=== PATIENT | male | born 1970 | race Caucasian/White ===

== ENCOUNTER 2017-04-05 23:24 | Observation (INO) | payer OTHER ==
[~2017-04-05] VITALS: Ht 172.7 cm; Wt 86.8 kg
[~2017-04-05 23:24] MED LIST: AMOXICILLIN500 MG PO; ASPIRIN LOW DOS81 M2 PO; BACTRIM DS1 TAB PO; BYDUREON2 MG IJ; CIPRO500 MG PO; CIPROFLOXACIN500 M1 PO; CIPROFLOXACN250 MG PO; CIPROFLOXACN500 MG PO; CREON 20 OR; CREON1 CAP PO; CREON12000 UNT PO; CREON6000 UNIT PO; DARVOCET N-100100 - OR; DEMEROL OR; DEMEROL PO; DEMEROL50 MG PO; FLEXERIL5 MG PO; HUMALOG100 MG/ML SC; HUMALOG100 UNIT/M SC; HUMULI1 SC; HUMULIN 70/30; HUMULIN R1 M1 SC; LANTUS100 MG/ML SC; LORTAB 7.5 OR; LORTAB5 PO; LOVASTATIN10 MG PO; MELOXICAM7.5 MG PO; METOCLOPRAM10 MG OR; NOVOLIN R SC; NOVOLOG MIX100 U/ML SC; ONDANSETRON4 MG OR; PERCOCET 5/325M1 TAB OR; PHENERGAN25 MG/ML OR; PREVACID30 M1 PO; PREVACID30 M2 OR; PROMETHAZINE25 MG OR; PROMETHAZINE25 MG RE; PROTONIX40 MG PO; REGLAN10 MG OR; REGLAN10 MG PO; SULFAMETHOXAZOLE-TMP; TAM75CAP OR; TRAMADOL HCL50 MG PO; TRICOR145 MG PO; ULTRAM50 M1 PO; ZOFRAN ODT4 MG PO; ZOFRAN ODT8 MG OR; ZOFRAN ODT8 MG PO
[2017-04-05] MEDS ORDERED: LANTUS100 UNIT/M SC (23:42)
--- NOTE | 2017-04-05 23:48 | NUR ---
PATIENT TO TREATMENT AREA AND TO BATHROOM FOR URINE SAMPLE.
[2017-04-06] VITALS (7 sets, daily range): BP systolic 104–138; BP diastolic 65–85
--- NOTE | 2017-04-06 00:30 | NUR ---
PORT ACCESSED AND BLOOD DRAWN. URINE COLLECTED AND SENT TO LAB. WAITING ON RESULTS.
[2017-04-06 00:49] LABS: HEMATOCRIT 35.5 % (39.0-50.0); HEMOGLOBIN 12.3 g/dl (14.0-18.0); IMMATURE GRANULOCYTES 0.2 % (0.0-1.0); MEAN CELL VOLUME 81.6 fL CALC (80.0-100.0); MEAN CORPUSCULAR HGB 28.3 pG CALC (26.0-32.0); MEAN CORPUSCULAR HGB CONC 34.6 g/L CALC (32.0-36.0); NEUT# 3.49 thou/uL (1.82-7.42); RED BLOOD COUNT 4.35 mill/uL (4.70-6.10); RED CELL DISTRI WIDTH 11.9 % (11.5-15.5)
[2017-04-06 00:50] LABS: URINE BILIRUBIN - DIPSTICK NEGATIVE (NEGATIVE); URINE BLOOD DIPSTICK TRACE-INTACT (NEGATIVE); URINE COLOR YELLOW; URINE KETONE NEGATIVE (NEGATIVE); URINE LEUK ESTERASE NEGATIVE (NEGATIVE); URINE NITRITE - DIPSTICK NEGATIVE (Negative); URINE PH 5.5 (4.5-8.0); URINE PROTEIN - DIPSTICK NEGATIVE (NEG-TRACE); URINE SPECIFIC GRAVITY <=1.005; URINE UROBILINOGEN - DIPSTICK 0.2 E.U./dL (0.2)
[2017-04-06 00:53] LABS: URINE CLARITY CLEAR; URINE GLUCOSE - DIPSTICK >=1000 mg/dL (NEGATIVE)
[2017-04-06 01:08] LABS: ALBUMIN 4.1 g/dL (3.2-5.0); ALKALINE PHOSPHATASE 157 u/l (38-126); AMYLASE 32 u/l (30-110); ANION GAP 19 (6-22 (CALC)); BILIRUBIN, TOTAL 0.5 mg/dL (0.0-1.4); BUN 19 mg/dL (9-20); BUN/CREATININE RATIO 14 (12-20 (CALC)); CALCIUM 8.9 mg/dL (8.4-10.2); CARBON DIOXIDE 23 mmol/l (22-30); CHLORIDE 94 mmol/l (95-108); CREATININE 1.4 mg/dL (0.7-1.3); GFR 54 ML/MIN (>=60 (CALC)); GFR FOR AFR.AMER. > 60 ML/MIN (>=60 (CALC)); LIPASE 87 u/l (23-300); SGOT/AST 19 u/l (17-59); SGPT/ALT 28 u/l (21-72); SODIUM 131 mmol/l (137-146)
[2017-04-06 01:17] LABS: GLUCOSE 793 mg/dL (75-110)
[2017-04-06 01:20] LABS: MYOGLOBIN 34 ng/mL (0 - 121)
--- NOTE | 2017-04-06 01:39 | NUR ---
PT STATES PAIN DOWN TO 410. IV INSULIN GIVEN FOR BS 793
--- NOTE | 2017-04-06 02:27 | NUR ---
REPEAT ACCUCHECK 522. REPEAT LACTIC ACID DRAWN.
--- NOTE | 2017-04-06 02:46 | NUR ---
Admission Note Report Given to: LINDA QUINN Transported by: Wheelchair X Stretcher Transported with: X Nurse Transporter X Patent IV O2 X Compression Molding Machine Setter
--- NOTE | 2017-04-06 02:50 | NUR ---
[facility], ARRIVED VIA STRETCHER, MONKEY KEEPER, ON ROOM AIR, BOLUS OF NS INFUSION STARTED IN ER, INFUSING TO RT UPPER CHEST PORT, ACCESSED TODAY. PT IS ALERT AND ORIENTED X3, ABLE TO AMBULATE FROM STRETCHER TO SCALE THEN TO BED, STEADY GAIT NOTED, DENIES N/V, C/O SHARP ABD PAIN TO RLQ, RATES IT AT 7/10, NO ORDERS FOR PAIN, PREVIOUSLY MEDICATED IN ER WITH DEMEROL 25MG IV AT 0050, WILL NOTIFY DR. SWIFT OF ABD PAIN. TELE IS IN PLACE, SR ON TELE PER ER MONITORING, HR 90, BP 131/77, SPO2 97% ON ROOM AIR, RR 16 EVEN AND UNLABORED, TEMP 97.2; SOME FACIAL GRIMACE AND GUARDING NOTED UPON ARRIVAL, POEM WRITER IN PT ROOM FOR FINGERSTICK ACCU CHECK, STATES LIVES AT HOME WITH FATHER AND BROTHER, DENIES USING AMBULATORY DEVICES, EXPLAINED CALL HUBER SYSTEM AND PLAN OF CARE, VOICES UNDERSTANDING, ASSESSMENT COMPLETED AT THIS TIME, SEE INTERVENTIONS FOR DETAILS, BST, FRESH WATER, URINAL, EMESIS BAG, CALL HUBER AT REACH. WILL MONITOR CLOSELY.
--- NOTE | 2017-04-06 02:53 | NUR ---
UPDATED REPORT DONE AT BEDSIDE UPON DELIVERING PT TO FLOOR.
--- NOTE | 2017-04-06 03:50 | NUR ---
NOTIFIED DR. SWIFT OF FINGERSTICK ACCU 476 AND LAB RESULTS, LACTIC ACID 3.1, NEW ODERS RECEIVED, WAITING FOR PHARMACY TO PROFILE ORDERS.
--- NOTE | 2017-04-06 04:46 | NUR ---
NOTIFIED DR. SWIFT OF CARDINAL NOT PROFILING DILAUDID BECAUSE OF PT DOCUMENTED ALLERGY, NEW ORDERS FOR DEMEROL 25MG IV. WAITING FOR CARDINAL TO PROFILE IT. PT STATES PAIN IS GETTING WORSE, NO DISTRESS NOTED, RESP ARE UNLABORED.
--- NOTE | 2017-04-06 05:08 | NUR ---
MEDICATED PT WITH DEMEROL IV, FOR SHARP PAIN IN ABD LLQ, RATES IT AT 7/10, SOME FACIAL GRIMACE NOTED AND GUARDING, RESP ARE EVEN AND UNLABORED, DENIES N/V, EMESIS BAG WITHIN REACH, ENCOURAGED TO CALL IF NEEDED, WILL REASSESS PAIN.
--- NOTE | 2017-04-06 05:12 | NUR ---
PT APPEARS TO BE SLEEPING IN BED, AROUSES TO STIMULI, EXPRESSED CONCERN ABOUT RLE BEING OPEN TO AIR, ASKING TO WRAP RLE AND PUT SOME KIND OF OINTMENT, EXPLAINED THAT DR. DUARTE WILL REEVALUATE RLE AND WILL ORDER TX IF NEEDED. PT VOICES UNDERSTANDING, MINIMAL SEROUS DRAINAGE NOTED FORM RLE. PEDAL PULSE WITH DOPPLER TO RLE, NO S/S OF DISTRESS NOTED, VSS, AFEBRILE, WILL CONTINUE TO MONITOR CLOSELY.
[2017-04-06 06:56] LABS: ANION GAP 16 (6-22 (CALC)); BUN 18 mg/dL (9-20); BUN/CREATININE RATIO 14 (12-20 (CALC)); CALCIUM 8.8 mg/dL (8.4-10.2); CARBON DIOXIDE 26 mmol/l (22-30); CHLORIDE 102 mmol/l (95-108); CREATININE 1.3 mg/dL (0.7-1.3); GFR 59 ML/MIN (>=60 (CALC)); GFR FOR AFR.AMER. > 60 ML/MIN (>=60 (CALC)); GLUCOSE 392 mg/dL (75-110); POTASSIUM 4.3 mmol/l (3.5-5.1); SODIUM 140 mmol/l (137-146)
--- NOTE | 2017-04-06 07:10 | NUR ---
BEDSIDE REPORT RECEIVED FROM SAÚL QUINN NURSE. PT.IS IN BED W/LIGHTS OUT SLEEPING AT THIS TIME. NO S/S OF DISTRESS. CALL LIGHT IS AT SIDE
--- NOTE | 2017-04-06 07:57 | NUR ---
NOTIFIED DR. SWIFT OF PT LABS RESULTS, ORDERS TO GIVE 5 UNITS OF NOVOLIN R, IV NOW, WILL FAX ORDERS TO PHARMACY.
--- NOTE | 2017-04-06 07:58 | NUR ---
REPORT GIVEN TO LINDA COPELAND.
[2017-04-06 13:10] LABS: ALBUMIN 3.3 g/dL (3.2-5.0); ALKALINE PHOSPHATASE 78 u/l (38-126); ANION GAP 13 (6-22 (CALC)); BILIRUBIN, TOTAL 0.3 mg/dL (0.0-1.4); BUN 16 mg/dL (9-20); BUN/CREATININE RATIO 13 (12-20 (CALC)); CALCIUM 8.7 mg/dL (8.4-10.2); CARBON DIOXIDE 26 mmol/l (22-30); CHLORIDE 105 mmol/l (95-108); CREATININE 1.2 mg/dL (0.7-1.3); GFR > 60 ML/MIN (>=60 (CALC)); GFR FOR AFR.AMER. > 60 ML/MIN (>=60 (CALC)); GLUCOSE 296 mg/dL (75-110); POTASSIUM 4.2 mmol/l (3.5-5.1); SGOT/AST 15 u/l (17-59); SGPT/ALT 28 u/l (21-72); SODIUM 140 mmol/l (137-146); TOTAL PROTEIN 5.9 g/dL (6.3-8.2)
--- NOTE | 2017-04-06 14:45 | NUR ---
PT.MEDICATED FOR PAIN 11/05 REPORTED. DENIES ANY OTHER NEEDS AT THIS TIME. CALL LIGHT W/IN REACH, PT.WATCHING TV
--- NOTE | 2017-04-06 17:34 | NUR ---
PT.MEDICATED FOR BLOOD SUGAR OF 289. DENIES ANY OTHER NEEDS AT THIS TIME. CALL LIGHT W/IN REACH
--- NOTE | 2017-04-06 19:35 | NUR ---
PATIENT RESTING IN BED AT THIS TIME-AWAKE ALERT AND ORIENTEDC/O SEVERE LEFT SIDED ABD PAIN-MEDICATED WITH DEMEROL 25 MG IVP ORDERED. RIGHT UPPER CHEST PORT ACCESSED AND APPEARS HEALTHY WITH GOOD BLOOD RETURN. PATIENT DENIES ANY BM'S TODAY-INSTRUCTED ON NEED FOR STOOL SPEC WHEN PATIENT IS ABLE TO PROVIDE SPEC. SAFETY PRECAUTIONS REINFORCED. CALL LIGHT IN REACH.WILL CONT TO MONITOR.
--- NOTE | 2017-04-06 23:45 | NUR ---
PATIENT C/O LEFT ABD PAIN 8/10 ON PAIN SCALE. MEDICATED WITH DEMEROL 25MG IVP ORDERED. PATIENT WITH RIGHT UPPER CHEST PORT ACCESSED AND WITH GOOD BLOOD RETURN. FLUSHED PER PROTOCOL. VOIDING CLEAR YELLOW URINE IN URINAL. CALL LIGHT IN REACH. WILL CONT TO MONITOR.
[2017-04-07] VITALS (7 sets, daily range): BP systolic 106–123; BP diastolic 56–78
--- NOTE | 2017-04-07 03:51 | NUR ---
PATIENT C/O SEVERE LEFT SIDED ABD PAIN-MEDICATED WITH DEMEROL 25MG IVP FOR 8/10 PAIN SCALE. VOIDING QS CLEAR YELLOW URINE. CALL LIGHT IN REACH. WILL CONT TO MONITOR.
[2017-04-07 05:27] LABS: HEMATOCRIT 38.1 % (39.0-50.0); HEMOGLOBIN 12.9 g/dl (14.0-18.0); IMMATURE GRANULOCYTES 0.3 % (0.0-1.0); MEAN CELL VOLUME 83.2 fL CALC (80.0-100.0); MEAN CORPUSCULAR HGB 28.2 pG CALC (26.0-32.0); MEAN CORPUSCULAR HGB CONC 33.9 g/L CALC (32.0-36.0); NEUT# 3.37 thou/uL (1.82-7.42); RED BLOOD COUNT 4.58 mill/uL (4.70-6.10); RED CELL DISTRI WIDTH 12.1 % (11.5-15.5)
[2017-04-07 05:41] LABS: ALBUMIN 3.9 g/dL (3.2-5.0); ALKALINE PHOSPHATASE 81 u/l (38-126); ANION GAP 14 (6-22 (CALC)); BILIRUBIN, TOTAL 0.4 mg/dL (0.0-1.4); BUN 15 mg/dL (9-20); BUN/CREATININE RATIO 12 (12-20 (CALC)); CALCIUM 9.8 mg/dL (8.4-10.2); CARBON DIOXIDE 30 mmol/l (22-30); CHLORIDE 103 mmol/l (95-108); CREATININE 1.3 mg/dL (0.7-1.3); GFR 59 ML/MIN (>=60 (CALC)); GFR FOR AFR.AMER. > 60 ML/MIN (>=60 (CALC)); GLUCOSE 118 mg/dL (75-110); SGOT/AST 21 u/l (17-59); SGPT/ALT 28 u/l (21-72); SODIUM 143 mmol/l (137-146); TOTAL PROTEIN 6.5 g/dL (6.3-8.2)
--- NOTE | 2017-04-07 07:18 | NUR ---
PT.V/S ASSESSED, PT.REQUESTED PAIN MEDIATION, REPORTING 12/06. I EXPLAINED THAT I AM UNABLE TO PULL MEDICATION QUITE YET, BUT WILL BRING IT SOON IT BECOMES AVAILABLE.
--- NOTE | 2017-04-07 08:11 | NUR ---
PT.MEDICATED W/AM MEDICATIONS, ASSESSMENT COMPLETE, NO S/S OF DISTRESS AT THIS TIME. PT.HAS BEEN MEDICATED FOR PAIN REPORTED @ 12/06. PT.IS UPRIGHT IN BED WATCHING TV. CALL LIGHT W/IN REACH
--- NOTE | 2017-04-07 12:16 | NUR ---
PT.MEDICATED FOR PAIN 12/06. NO S/S OF DISTRESS AT THIS TIME
--- NOTE | 2017-04-07 16:45 | NUR ---
PT.PROPPED UP IN BED, REPORTED SITTING IN THE RECLINER FOR A LITTLE WHILE DURING HIS FAMILY VISITED. PT.IS WATCHING TV AT THIS TIME, CALLED TO REQUEST PAIN MEDICATION, REPORTS PAIN 8/10. MEDICATED ORDERS PROVIDE. DENIES ANY OTHER NEEDS AT THIS TIME, LUNG SOUNDS ARE CLEAR, NEURO'S INTACT. CALL LIGHT AT SIDE
--- NOTE | 2017-04-07 19:37 | NUR ---
PATIENT RESTING IN BED AT THIS TIME WATCHING TV. AWAKE ALERT AND ORIENTEDX3. RIGHT UPPER CHEST PORT INTACT AND APPEARS HEALTHY AT THIS TIME. NO COMPLAINTS AT THIS TIME. STATES NO BM TODAY-INSTRUCTED THAT WE STILL STOOL SPEC WHEN ABLE TO PROVIDE. STATES THAT HE IS PASSING FLATUS. CALL LIGHT IN REACH. WILL CONT TO MONITOR.
--- NOTE | 2017-04-07 20:45 | NUR ---
PATIENT C/O ABD PAIN-7/10 ON PAIN SCALE. MEDICATED WITH DEMEROL 25MG IVP ORDERED FOR PAIN. ACCU-CHECK 344-COVERED WITH NOVALOG 5UNIT SQ. CALL LIGHT IN REACH. WILL CONT TO MONITOR.
--- NOTE | 2017-04-08 00:56 | NUR ---
PATIENT MEDICATED FOR ABD PAIN 8/10 ON PAIN SCALE WITH DEMEROL 25 MG IVP ORDERED. CALL LIGHT IN REACH. WILL CONT TO MONITOR.
[2017-04-08 04:39] VITALS: BP 121/74
--- NOTE | 2017-04-08 04:48 | NUR ---
UNABLE TO DRAW FROM RIGHT CHEST FOR LAB DRAW-ABLE TO GET BLOOD RETURN BUT NOT ENOUGHT FOR LAB SPEC. PATIENT MEDICATED FOR C/O ABD PAIN WITH DEMEROL 25MG IVP ORDERED FOR PAIN. PORT FLUSHED PER PROTOCOL WITH NS AMD HEP ALFREDITO. CALL LIGHT IN REACH. WILL CONT TO MONITOR.
[2017-04-08 06:39] LABS: HEMATOCRIT 37.1 % (39.0-50.0); HEMOGLOBIN 12.7 g/dl (14.0-18.0); IMMATURE GRANULOCYTES 0.5 % (0.0-1.0); MEAN CELL VOLUME 83.7 fL CALC (80.0-100.0); MEAN CORPUSCULAR HGB 28.7 pG CALC (26.0-32.0); MEAN CORPUSCULAR HGB CONC 34.2 g/L CALC (32.0-36.0); NEUT# 3.41 thou/uL (1.82-7.42); RED BLOOD COUNT 4.43 mill/uL (4.70-6.10); RED CELL DISTRI WIDTH 12.1 % (11.5-15.5)
[2017-04-08 06:54] LABS: ALBUMIN 3.8 g/dL (3.2-5.0); ALKALINE PHOSPHATASE 76 u/l (38-126); ANION GAP 12 (6-22 (CALC)); BILIRUBIN, TOTAL 0.2 mg/dL (0.0-1.4); BUN 16 mg/dL (9-20); BUN/CREATININE RATIO 12 (12-20 (CALC)); CALCIUM 9.6 mg/dL (8.4-10.2); CARBON DIOXIDE 33 mmol/l (22-30); CHLORIDE 101 mmol/l (95-108); CREATININE 1.3 mg/dL (0.7-1.3); GFR 59 ML/MIN (>=60 (CALC)); GFR FOR AFR.AMER. > 60 ML/MIN (>=60 (CALC)); GLUCOSE 148 mg/dL (75-110); POTASSIUM 4.5 mmol/l (3.5-5.1); SGOT/AST 17 u/l (17-59); SGPT/ALT 28 u/l (21-72); SODIUM 142 mmol/l (137-146); TOTAL PROTEIN 6.3 g/dL (6.3-8.2)
[2017-04-08 07:05] VITALS: BP 108/69
--- NOTE | 2017-04-08 07:05 | NUR ---
PT ASSESSMENT COMPLETED. PT ALERT AND ORIENTED X3. SPEECH IS CLEAR. PUPILS EQUAL, REACTIVE TO LIGHT. FACE SYMMETRICAL. PT HAS STRONG UPPER AND LOWER EXTREMITIES. PT HAS STRONG APICAL AND RADIAL PULSES, WEAK PEDAL PULSES X2. BRISK CAPILLARY REFILL. LUNG SOUNDS CLEAR, RESPIRATIONS EVEN AND UNLABORED. SKIN WARM, INTACT. PT C/O UPPER AND LOWER ABDOMINAL PAIN 6/10, NAUSEA BUT NO VOMITTING. RN NOTIFIED. CALL LIGHT WITHIN REACH. BED IN THE LOWEST POSITION, SIDE RAILS UP. WILL CONTINUE TO MONITOR.
[2017-04-08 11:00] VITALS: BP 113/54
== END 2017-04-08 11:24 | disposition home or self-care (01) | DRG 638 ==
LOC: ED 23:24 → ED-I 04-06 01:54 → ED 04-06 02:19 → MS2 04-06 02:20
PROVIDERS: Emergency Medicine; ADMIT Internal Medicine Geriatric Medicine; ATTEND Internal Medicine Geriatric Medicine
DX: E11.65 Type 2 diabetes mellitus with hyperglycemia (principal); K86.1 Other chronic pancreatitis; F11.20 Opioid dependence, uncomplicated; K66.0 Peritoneal adhesions (postprocedural) (postinfection); I25.10 Atherosclerotic heart disease of native coronary artery without angina pectoris; K21.9 Gastro-esophageal reflux disease without esophagitis; R10.9 Unspecified abdominal pain; G89.29 Other chronic pain; M54.9 Dorsalgia, unspecified; K27.9 Peptic ulcer, site unspecified, unspecified as acute or chronic, without hemorrhage or perforation; R19.7 Diarrhea, unspecified; Z79.4 Long term (current) use of insulin
CPT/HCPCS: G0378; S0164

== ENCOUNTER 2017-09-13 15:03 | Inpatient (IN) | payer OTHER ==
[~2017-09-13] VITALS: Ht 172.7 cm; Wt 88.1 kg
[~2017-09-13 15:03] MED LIST changes: +LANTUS100 UNIT/M SC
[2017-09-13 15:49] LABS: HEMATOCRIT 37.2 % (39.0-50.0); HEMOGLOBIN 12.8 g/dl (14.0-18.0); IMMATURE GRANULOCYTES 0.5 % (0.0-1.0); MEAN CELL VOLUME 82.7 fL CALC (80.0-100.0); MEAN CORPUSCULAR HGB 28.4 pG CALC (26.0-32.0); MEAN CORPUSCULAR HGB CONC 34.4 g/L CALC (32.0-36.0); NEUT# 5.23 thou/uL (1.82-7.42); RED BLOOD COUNT 4.5 mill/uL (4.70-6.10); RED CELL DISTRI WIDTH 12.2 % (11.5-15.5)
[2017-09-13 15:58] LABS: ALBUMIN 4.2 g/dL (3.2-5.0); AMYLASE < 30 u/l (30-110); BUN 29 mg/dL (9-20); BUN/CREATININE RATIO 20 (12-20 (CALC)); CHLORIDE 90 mmol/l (95-108); CREATININE 1.4 mg/dL (0.7-1.3); GFR 54 ML/MIN (>=60 (CALC)); GFR FOR AFR.AMER. > 60 ML/MIN (>=60 (CALC)); LIPASE 64 u/l (23-300); POTASSIUM 4.8 mmol/l (3.5-5.1); SGPT/ALT 55 u/l (21-72); TOTAL PROTEIN 6.9 g/dL (6.3-8.2)
[2017-09-13 16:10] LABS: MYOGLOBIN 36 ng/mL (0 - 121)
[2017-09-13 16:20] LABS: ALKALINE PHOSPHATASE 138 u/l (38-126); ANION GAP 25 (6-22 (CALC)); CARBON DIOXIDE 20 mmol/l (22-30); SGOT/AST 38 u/l (17-59); SODIUM 130 mmol/l (137-146)
[2017-09-13] MEDS ORDERED: LIPITOR20 MG PO (17:33)
[2017-09-13] MEDS ORDERED: HUMALOG100 MG/ML (17:35)
[2017-09-13 17:48] LABS: URINE BILIRUBIN - DIPSTICK NEGATIVE (NEGATIVE); URINE BLOOD DIPSTICK NEGATIVE (NEGATIVE); URINE COLOR YELLOW; URINE GLUCOSE - DIPSTICK >=1000 mg/dL (NEGATIVE); URINE KETONE 15 mg/dL (NEGATIVE); URINE LEUK ESTERASE NEGATIVE (NEGATIVE); URINE NITRITE - DIPSTICK NEGATIVE (Negative); URINE PROTEIN - DIPSTICK NEGATIVE (NEG-TRACE); URINE SPECIFIC GRAVITY <=1.005; URINE UROBILINOGEN - DIPSTICK 0.2 E.U./dL (0.2)
[2017-09-13 17:57] LABS: URINE CLARITY CLEAR
[2017-09-13 19:15] VITALS: BP 127/81
[2017-09-13 19:30] VITALS: BP 129/73
[2017-09-13 19:45] VITALS: BP 133/74
[2017-09-13 20:00] VITALS: BP 120/62
[2017-09-13 20:15] VITALS: BP 117/72
[2017-09-13 21:15] LABS: ALKALINE PHOSPHATASE 114 u/l (38-126); BILIRUBIN, TOTAL 0.5 mg/dL (0.0-1.4); BUN 27 mg/dL (9-20); BUN/CREATININE RATIO 21 (12-20 (CALC)); CREATININE 1.3 mg/dL (0.7-1.3); GFR 59 ML/MIN (>=60 (CALC)); GFR FOR AFR.AMER. > 60 ML/MIN (>=60 (CALC)); POTASSIUM 4.3 mmol/l (3.5-5.1); SGOT/AST 31 u/l (17-59); SGPT/ALT 49 u/l (21-72); TOTAL PROTEIN 6.8 g/dL (6.3-8.2)
[2017-09-13 21:39] LABS: ANION GAP 16 (6-22 (CALC)); CARBON DIOXIDE 28 mmol/l (22-30); CHLORIDE 101 mmol/l (95-108); SODIUM 141 mmol/l (137-146)
[2017-09-13 22:00] VITALS: BP 119/71
[2017-09-14] VITALS (12 sets, daily range): BP systolic 107–158; BP diastolic 51–87
[2017-09-14 05:22] LABS: HEMATOCRIT 33.5 % (39.0-50.0); HEMOGLOBIN 11.4 g/dl (14.0-18.0); IMMATURE GRANULOCYTES 0.3 % (0.0-1.0); MEAN CELL VOLUME 83.8 fL CALC (80.0-100.0); MEAN CORPUSCULAR HGB 28.5 pG CALC (26.0-32.0); NEUT# 3.04 thou/uL (1.82-7.42); RED CELL DISTRI WIDTH 12.4 % (11.5-15.5)
[2017-09-14 05:31] LABS: ALBUMIN 3.5 g/dL (3.2-5.0); ALKALINE PHOSPHATASE 96 u/l (38-126); ANION GAP 17 (6-22 (CALC)); BILIRUBIN, TOTAL 0.6 mg/dL (0.0-1.4); BUN 21 mg/dL (9-20); BUN/CREATININE RATIO 18 (12-20 (CALC)); CARBON DIOXIDE 26 mmol/l (22-30); CHLORIDE 101 mmol/l (95-108); CREATININE 1.2 mg/dL (0.7-1.3); GFR > 60 ML/MIN (>=60 (CALC)); GFR FOR AFR.AMER. > 60 ML/MIN (>=60 (CALC)); POTASSIUM 4.4 mmol/l (3.5-5.1); SGOT/AST 36 u/l (17-59); SGPT/ALT 51 u/l (21-72); SODIUM 140 mmol/l (137-146); TOTAL PROTEIN 6.1 g/dL (6.3-8.2)
[2017-09-14] MEDS ORDERED: ATORVASTATIN CA80 MG PO (07:45)
[2017-09-15] VITALS (7 sets, daily range): BP systolic 98–143; BP diastolic 58–81
[2017-09-15 05:31] LABS: HEMATOCRIT 33.7 % (39.0-50.0); HEMOGLOBIN 11.6 g/dl (14.0-18.0); IMMATURE GRANULOCYTES 0.2 % (0.0-1.0); MEAN CELL VOLUME 84.3 fL CALC (80.0-100.0); MEAN CORPUSCULAR HGB CONC 34.4 g/L CALC (32.0-36.0); NEUT# 3.36 thou/uL (1.82-7.42); RED CELL DISTRI WIDTH 12.6 % (11.5-15.5)
[2017-09-15 05:59] LABS: ALBUMIN 3.3 g/dL (3.2-5.0); ALKALINE PHOSPHATASE 80 u/l (38-126); BILIRUBIN, TOTAL 0.3 mg/dL (0.0-1.4); BUN 17 mg/dL (9-20); BUN/CREATININE RATIO 16 (12-20 (CALC)); CARBON DIOXIDE 30 mmol/l (22-30); CHLORIDE 105 mmol/l (95-108); CREATININE 1.1 mg/dL (0.7-1.3); GFR > 60 ML/MIN (>=60 (CALC)); GFR FOR AFR.AMER. > 60 ML/MIN (>=60 (CALC)); SGOT/AST 24 u/l (17-59); SGPT/ALT 42 u/l (21-72); SODIUM 144 mmol/l (137-146)
[2017-09-15 06:07] LABS: ANION GAP 12 (6-22 (CALC))
[2017-09-15 06:09] LABS: POTASSIUM 3.4 mmol/l (3.5-5.1)
== END 2017-09-15 15:30 | disposition home or self-care (01) | DRG 641 ==
LOC: ED 15:03 → ED-I 18:05 → ED 18:38 → ICU 18:39
PROVIDERS: Emergency Medicine; ADMIT Internal Medicine Geriatric Medicine; ATTEND Internal Medicine Geriatric Medicine
DX: E89.1 Postprocedural hypoinsulinemia (principal); F11.20 Opioid dependence, uncomplicated; K86.1 Other chronic pancreatitis; E13.10 Other specified diabetes mellitus with ketoacidosis without coma; E13.69 Other specified diabetes mellitus with other specified complication; E13.649 Other specified diabetes mellitus with hypoglycemia without coma; F41.1 Generalized anxiety disorder; G89.29 Other chronic pain; I25.10 Atherosclerotic heart disease of native coronary artery without angina pectoris; M54.5 Low back pain; R10.9 Unspecified abdominal pain; E78.5 Hyperlipidemia, unspecified; K21.9 Gastro-esophageal reflux disease without esophagitis; K27.9 Peptic ulcer, site unspecified, unspecified as acute or chronic, without hemorrhage or perforation; F32.9 Major depressive disorder, single episode, unspecified; Z79.4 Long term (current) use of insulin; Z91.14 Patient's other noncompliance with medication regimen; Z90.411 Acquired partial absence of pancreas

== ENCOUNTER 2018-01-14 22:30 | Observation (INO) | payer OTHER ==
[~2018-01-14] VITALS: Ht 172.7 cm; Wt 87.2 kg
[~2018-01-14 22:30] MED LIST changes: +ATORVASTATIN CA80 MG PO; +HUMALOG100 MG/ML; +LIPITOR20 MG PO
[2018-01-14] MEDS ORDERED: BRILINTA60 MG PO (22:46)
[2018-01-14 23:41] LABS: HEMATOCRIT 36.7 % (39.0-50.0); HEMOGLOBIN 12.3 g/dl (14.0-18.0); IMMATURE GRANULOCYTES 0.5 % (0.0-5.0); MEAN CELL VOLUME 82.7 fL CALC (80.0-100.0); MEAN CORPUSCULAR HGB 27.7 pG CALC (26.0-32.0); MEAN CORPUSCULAR HGB CONC 33.5 g/L CALC (32.0-36.0); NEUT# 4.42 thou/uL (1.82-7.42); RED BLOOD COUNT 4.44 mill/uL (4.70-6.10); RED CELL DISTRI WIDTH 12.1 % (11.5-15.5)
[2018-01-14 23:50] LABS: AMYLASE 43 u/l (30-110); BILIRUBIN, TOTAL 0.4 mg/dL (0.0-1.4); BUN 22 mg/dL (9-20); BUN/CREATININE RATIO 16 (12-20 (CALC)); CARBON DIOXIDE 27 mmol/l (22-30); CHLORIDE 97 mmol/l (95-108); CREATININE 1.3 mg/dL (0.7-1.3); GFR 59 ML/MIN (>=60 (CALC)); GFR FOR AFR.AMER. > 60 ML/MIN (>=60 (CALC)); LIPASE 76 u/l (23-300); SGOT/AST 22 u/l (17-59); SGPT/ALT 29 u/l (21-72)
[2018-01-14 23:54] LABS: ALBUMIN 4.1 g/dL (3.2-5.0); ALKALINE PHOSPHATASE 150 u/l (38-126); ANION GAP 16 (6-22 (CALC)); POTASSIUM 4.7 mmol/l (3.5-5.1); SODIUM 135 mmol/l (137-146); TOTAL PROTEIN 7.3 g/dL (6.3-8.2)
[2018-01-15 00:02] LABS: MYOGLOBIN 25 ng/mL (0 - 121)
[2018-01-15 00:45] LABS: URINE BILIRUBIN - DIPSTICK NEGATIVE (NEGATIVE); URINE BLOOD DIPSTICK NEGATIVE (NEGATIVE); URINE COLOR YELLOW; URINE GLUCOSE - DIPSTICK >=1000 mg/dL (NEGATIVE); URINE KETONE NEGATIVE (NEGATIVE); URINE LEUK ESTERASE NEGATIVE (NEGATIVE); URINE NITRITE - DIPSTICK NEGATIVE (Negative); URINE PROTEIN - DIPSTICK NEGATIVE (NEG-TRACE); URINE SPECIFIC GRAVITY <=1.005; URINE UROBILINOGEN - DIPSTICK 0.2 E.U./dL (0.2)
[2018-01-15 00:52] LABS: URINE CLARITY SL CLOUDY
[2018-01-15 02:45] VITALS: BP 130/81
[2018-01-15 08:32] VITALS: BP 127/77
[2018-01-15 09:32] LABS: HEMATOCRIT 33.4 % (39.0-50.0); HEMOGLOBIN 11.1 g/dl (14.0-18.0); IMMATURE GRANULOCYTES 0.5 % (0.0-5.0); MEAN CELL VOLUME 83.5 fL CALC (80.0-100.0); MEAN CORPUSCULAR HGB 27.8 pG CALC (26.0-32.0); MEAN CORPUSCULAR HGB CONC 33.2 g/L CALC (32.0-36.0); NEUT# 3.19 thou/uL (1.82-7.42); RED CELL DISTRI WIDTH 12.1 % (11.5-15.5)
[2018-01-15 09:40] LABS: ALBUMIN 3.4 g/dL (3.2-5.0); ALKALINE PHOSPHATASE 110 u/l (38-126); ANION GAP 14 (6-22 (CALC)); BILIRUBIN, TOTAL 0.4 mg/dL (0.0-1.4); BUN 19 mg/dL (9-20); BUN/CREATININE RATIO 17 (12-20 (CALC)); CARBON DIOXIDE 28 mmol/l (22-30); CHLORIDE 101 mmol/l (95-108); CREATININE 1.1 mg/dL (0.7-1.3); GFR > 60 ML/MIN (>=60 (CALC)); GFR FOR AFR.AMER. > 60 ML/MIN (>=60 (CALC)); POTASSIUM 5.1 mmol/l (3.5-5.1); SGOT/AST 24 u/l (17-59); SGPT/ALT 28 u/l (21-72); SODIUM 137 mmol/l (137-146)
[2018-01-15 11:26] VITALS: BP 120/71
[2018-01-15 15:52] VITALS: BP 130/75
[2018-01-15 19:00] VITALS: BP 119/63
[2018-01-16 00:06] VITALS: BP 113/69
[2018-01-16 05:12] VITALS: BP 97/61
[2018-01-16 08:01] VITALS: BP 110/65
== END 2018-01-16 09:48 | disposition home or self-care (01) ==
LOC: ED 22:30 → ED-I 01-15 00:50 → ED 01-15 01:27 → MS2 01-15 01:28
PROVIDERS: Emergency Medicine; ADMIT Internal Medicine Geriatric Medicine; ATTEND Internal Medicine Geriatric Medicine
DX: E11.65 Type 2 diabetes mellitus with hyperglycemia (principal); K86.1 Other chronic pancreatitis; K27.9 Peptic ulcer, site unspecified, unspecified as acute or chronic, without hemorrhage or perforation; K21.9 Gastro-esophageal reflux disease without esophagitis; I10 Essential (primary) hypertension; I25.10 Atherosclerotic heart disease of native coronary artery without angina pectoris; E11.69 Type 2 diabetes mellitus with other specified complication; E78.5 Hyperlipidemia, unspecified; F11.20 Opioid dependence, uncomplicated; G89.29 Other chronic pain; M54.5 Low back pain; Z79.4 Long term (current) use of insulin; Z95.5 Presence of coronary angioplasty implant and graft; R07.9 Chest pain, unspecified
CPT/HCPCS: G0378

== ENCOUNTER 2018-02-09 23:51 | Observation (INO) | payer OTHER ==
[~2018-02-09] VITALS: Ht 172.7 cm; Wt 91.0 kg
[~2018-02-09 23:51] MED LIST changes: +BRILINTA60 MG PO
--- NOTE | 2018-02-09 23:55 | NUR ---
PATIENT IMMEDIATELY TO ROOM 8 FOR BEDSIDE TRIAGE. PATIENT UNDRESSED INTO A GOWN. PLACED ON MONITOR. AWAITING MD LAU.
[2018-02-10] VITALS (7 sets, daily range): BP systolic 106–133; BP diastolic 61–77
--- NOTE | 2018-02-10 01:00 | NUR ---
REVIEWED MED ADMINISTRATION WITH PT. NOW INDICATES HE IS ALLERGIC TO [place]. DR EDDY INFORMED.
[2018-02-10 01:19] LABS: HEMATOCRIT 35.2 % (39.0-50.0); HEMOGLOBIN 12.2 g/dl (14.0-18.0); IMMATURE GRANULOCYTES 0.2 % (0.0-5.0); MEAN CELL VOLUME 80.5 fL CALC (80.0-100.0); MEAN CORPUSCULAR HGB 27.9 pG CALC (26.0-32.0); MEAN CORPUSCULAR HGB CONC 34.7 g/L CALC (32.0-36.0); NEUT# 4.77 thou/uL (1.82-7.42); RED BLOOD COUNT 4.37 mill/uL (4.70-6.10); RED CELL DISTRI WIDTH 12.1 % (11.5-15.5)
[2018-02-10 01:26] LABS: ALKALINE PHOSPHATASE 141 u/l (38-126); AMYLASE 43 u/l (30-110); BILIRUBIN, TOTAL 0.4 mg/dL (0.0-1.4); BUN 27 mg/dL (9-20); BUN/CREATININE RATIO 19 (12-20 (CALC)); CARBON DIOXIDE 26 mmol/l (22-30); CHLORIDE 96 mmol/l (95-108); CREATININE 1.4 mg/dL (0.7-1.3); GFR 54 ML/MIN (>=60 (CALC)); GFR FOR AFR.AMER. > 60 ML/MIN (>=60 (CALC)); LIPASE 65 u/l (23-300); SGOT/AST 24 u/l (17-59); SODIUM 136 mmol/l (137-146)
[2018-02-10 01:29] LABS: ALBUMIN 4.5 g/dL (3.2-5.0); ANION GAP 18 (6-22 (CALC)); TOTAL PROTEIN 7.8 g/dL (6.3-8.2)
--- NOTE | 2018-02-10 01:36 | NUR ---
PT RELATED DEMERAL WAS HELPING CHEST PAIN.
[2018-02-10 01:38] LABS: MYOGLOBIN 42 ng/mL (0 - 121)
--- NOTE | 2018-02-10 02:20 | NUR ---
REPORT CALLED TO MARSHA MCKEON .
--- NOTE | 2018-02-10 02:30 | NUR ---
PT TO RM 261 ON TELE WITH RN. PT RELATED CHEST PAIN IMPROVED.
--- NOTE | 2018-02-10 02:30 | NUR ---
PT RECEIVED FROM E.R VIA STRETCHER ACCOMPANIED BY NURSE. GAIT IS STEADY. ASSISTED INTO BED. ALERT AND ORIENTED X4. SKIN WARM AND DRY. LUNGS CLEAR BILAT. ABD SOFT AND NONDISTENDED WITH BOWEL SOUNDS PRESENT. NO LOWER EXT EDEMA NOTED. PEDAL PULSES PALPATED BILAT. RT CHEST PORT AXCESSED IN THE E.R AND DRESSING CLEAN AND DRY. TELE INTACT. VSS. 96.9-70-18, 133/77. O2 SAT 100%. PT DID RECEIVE DEMEROL IN E.R AND HE STATES IT DID HELP HIS DISCOMFORT. OFFERS NO COMPLAINTS AT THIS TIME. ORIENTED TO ROOM AND CALL HUBER. CALL HUBER WITHIN REACH.
--- NOTE | 2018-02-10 03:39 | NUR ---
RESTING IN BED WITH EYES CLOSED. RESP EVEN AND UNLABORED. NO DISTRESS NOTED. FREQUENT ROUNDS MADE. CALL HUBER WITHIN REACH.
--- NOTE | 2018-02-10 04:30 | NUR ---
RESTING IN BED WITH EYES CLOSED. ASSESSMENT UNCHANGED. RESP EVEN AND UNLABORED. NO DISTRESS NOTED. HEPLOCK PATENT. TELE INTACT. FREQUENT ROUNDS MADE. CALL HUBER WITHIN REACH.
--- NOTE | 2018-02-10 05:10 | NUR ---
PT REQUESTING DEMEROL IV FOR CHEST DISCOMFORT. MEDICATED WITH DEMEROL 25MG IV. PORT PATENT. CALL HUBER WITHIN REACH.
[2018-02-10 06:29] LABS: ALKALINE PHOSPHATASE 109 u/l (38-126); ANION GAP 14 (6-22 (CALC)); BILIRUBIN, TOTAL 0.3 mg/dL (0.0-1.4); BUN 24 mg/dL (9-20); BUN/CREATININE RATIO 18 (12-20 (CALC)); CARBON DIOXIDE 30 mmol/l (22-30); CHLORIDE 101 mmol/l (95-108); CREATININE 1.3 mg/dL (0.7-1.3); GFR 59 ML/MIN (>=60 (CALC)); GFR FOR AFR.AMER. > 60 ML/MIN (>=60 (CALC)); POTASSIUM 3.5 mmol/l (3.5-5.1); SGOT/AST 17 u/l (17-59); SODIUM 142 mmol/l (137-146); TOTAL PROTEIN 7.1 g/dL (6.3-8.2)
--- NOTE | 2018-02-10 07:39 | NUR ---
SHIFT CHANGE REPORT FORM MARK LARSON AWAKE ALERT AND ORIENTED, NO C/O DISCOMFORT AT THIS TIME, TELE MONITOR IN PLACE, IVFINFUSING, CALL HUBER IN REACH.
--- NOTE | 2018-02-10 11:54 | NUR ---
SITTING UP IN BED, FAMILY VISITING, MEAL SERVED, ALL NEEDS ADDRESSED.
--- NOTE | 2018-02-10 19:27 | NUR ---
PATIENT RESTING IN BED AT THIS TIME WITH HOB ELEVATED. AWAKE ALERT AND ORIENTEDX3. IVF NS PATENT AND INFUSING RIGHT UPPER CHEST PORT. SITE APPEARS HEALTHY AT THIS TIME. STATES THAT PAIN LEVEL AT THIS TIME IS 4/10. SAFETY PRECAUTIONS REINFORCED. CALL LIGHT IN REACH. WILL CONT TO MONITOR.
--- NOTE | 2018-02-10 21:40 | NUR ---
PATIENT RESTING IN BED-BS-206 AND PATIENT WAS COVERED WITH 4UNITS OF NOVALOG PER COVERAGE PROTOCOL. HS SNACK PROVIDED. C/O EPIGASTRIC PAIN-8/10 ON PAIN SCALE. MEDICATED WITH DEMEROL 25MG IVP ORDERED FOR PAIN. VOIDING QS CLEAR YELLOW URINE. CALL LIGHT IN REACH.WILL CONT TO MONITOR.
--- NOTE | 2018-02-11 01:45 | NUR ---
PATIENT RESTING IN BED-C/O EPIGASTRIC PAIN-7/10 ON PAIN SCALE. MEDICATED WITH DEMEROL 25MG IVP VIA RIGHT UPPER CHEST PORT. CALL LIGHT IN REACH. WILL CONT TO MONITOR.
--- NOTE | 2018-02-11 02:36 | NUR ---
APPEARS SLEEPING AT THIS TIME WITH EYES CLOSED. IVF NS PATENT AND INFUSING AT 100CC/HR VIA RIGHT UPPER CHEST SITE. CALL LIGHT IN REACH. WILL CONT TO MONITOR.
[2018-02-11 03:46] VITALS: BP 109/69
--- NOTE | 2018-02-11 04:23 | NUR ---
PATIENT RESTING IN BED-LABS DRAWN FROM RIGHT UPPER [facility] PORT WITHOUT ANY DIFFICUTY-GOOD BLOOD RETURN. FLUSHED PER PROTOCOL AND IV NS INFUSING AT 100CC/HR. CALL LIGHT IN REACH. WILL CONT TO MONITOR.
[2018-02-11 05:26] LABS: HEMATOCRIT 33.4 % (39.0-50.0); HEMOGLOBIN 11.2 g/dl (14.0-18.0); IMMATURE GRANULOCYTES 0.3 % (0.0-5.0); MEAN CELL VOLUME 84.1 fL CALC (80.0-100.0); MEAN CORPUSCULAR HGB 28.2 pG CALC (26.0-32.0); MEAN CORPUSCULAR HGB CONC 33.5 g/L CALC (32.0-36.0); NEUT# 3.25 thou/uL (1.82-7.42); RED BLOOD COUNT 3.97 mill/uL (4.70-6.10); RED CELL DISTRI WIDTH 12.5 % (11.5-15.5)
[2018-02-11 05:32] LABS: CHOLESTEROL HDL RATIO 5.1 (<4.4 (CALC))
[2018-02-11 05:33] LABS: ALBUMIN 3.3 g/dL (3.2-5.0); ALKALINE PHOSPHATASE 85 u/l (38-126); ANION GAP 11 (6-22 (CALC)); BILIRUBIN, TOTAL 0.3 mg/dL (0.0-1.4); BUN 18 mg/dL (9-20); BUN/CREATININE RATIO 16 (12-20 (CALC)); CARBON DIOXIDE 28 mmol/l (22-30); CHLORIDE 103 mmol/l (95-108); CREATININE 1.2 mg/dL (0.7-1.3); GFR > 60 ML/MIN (>=60 (CALC)); GFR FOR AFR.AMER. > 60 ML/MIN (>=60 (CALC)); SGOT/AST 14 u/l (17-59); SODIUM 137 mmol/l (137-146); TOTAL PROTEIN 5.9 g/dL (6.3-8.2)
[2018-02-11 05:34] LABS: POTASSIUM 4.8 mmol/l (3.5-5.1)
--- NOTE | 2018-02-11 07:00 | NUR ---
SHIFT CHANGE REPORT FROM MARK ORTEGA SLEEPING BUT AROUSED TO VERBAL STIMULI, ORIENTED, PAIN CONTROLLED WITH ANALGESICS, IVF INFUSING, TELE MONITOR IN PLACE, CALL HUBER IN REACH.
[2018-02-11 07:56] VITALS: BP 112/64
--- NOTE | 2018-02-11 10:46 | NUR ---
Discharge instructions given. Patient verbalizes understanding of same. Discharged in good condition via Ambulatory to Home with *Other. All belongings sent with pt.
== END 2018-02-11 10:45 | disposition home or self-care (01) ==
LOC: ED 23:51 → ED-I 02-10 01:30 → ED 02-10 01:47 → MS2 02-10 01:48
PROVIDERS: Family Medicine; ADMIT Internal Medicine Geriatric Medicine; ATTEND Internal Medicine Geriatric Medicine
DX: R07.9 Chest pain, unspecified (principal); I10 Essential (primary) hypertension; I25.10 Atherosclerotic heart disease of native coronary artery without angina pectoris; E11.65 Type 2 diabetes mellitus with hyperglycemia; E11.649 Type 2 diabetes mellitus with hypoglycemia without coma; K21.9 Gastro-esophageal reflux disease without esophagitis; K86.1 Other chronic pancreatitis; F11.20 Opioid dependence, uncomplicated; G89.29 Other chronic pain; M54.5 Low back pain; K27.9 Peptic ulcer, site unspecified, unspecified as acute or chronic, without hemorrhage or perforation; Z79.4 Long term (current) use of insulin; Z90.411 Acquired partial absence of pancreas; Z95.5 Presence of coronary angioplasty implant and graft; Z95.1 Presence of aortocoronary bypass graft; Z91.14 Patient's other noncompliance with medication regimen
CPT/HCPCS: G0378; J1650

== ENCOUNTER 2018-03-13 21:36 | Inpatient (IN) | payer OTHER ==
[~2018-03-13] VITALS: Ht 172.7 cm; Wt 89.4 kg
[2018-03-13 23:26] LABS: HEMATOCRIT 36.6 % (39.0-50.0); HEMOGLOBIN 12.6 g/dl (14.0-18.0); IMMATURE GRANULOCYTES 0.3 % (0.0-5.0); MEAN CELL VOLUME 81.9 fL CALC (80.0-100.0); MEAN CORPUSCULAR HGB 28.2 pG CALC (26.0-32.0); MEAN CORPUSCULAR HGB CONC 34.4 g/L CALC (32.0-36.0); NEUT# 4.34 thou/uL (1.82-7.42); RED BLOOD COUNT 4.47 mill/uL (4.70-6.10); RED CELL DISTRI WIDTH 12.2 % (11.5-15.5)
[2018-03-13 23:27] LABS: URINE BILIRUBIN - DIPSTICK NEGATIVE (NEGATIVE); URINE BLOOD DIPSTICK TRACE-INTACT (NEGATIVE); URINE CLARITY CLEAR; URINE COLOR YELLOW; URINE GLUCOSE - DIPSTICK >=1000 mg/dL (NEGATIVE); URINE KETONE NEGATIVE (NEGATIVE); URINE LEUK ESTERASE NEGATIVE (NEGATIVE); URINE NITRITE - DIPSTICK NEGATIVE (Negative); URINE PROTEIN - DIPSTICK NEGATIVE (NEG-TRACE); URINE UROBILINOGEN - DIPSTICK 0.2 E.U./dL (0.2)
[2018-03-13 23:33] LABS: AMYLASE 44 u/l (30-110); BILIRUBIN, TOTAL 0.5 mg/dL (0.0-1.4); BUN 23 mg/dL (9-20); BUN/CREATININE RATIO 16 (12-20 (CALC)); CARBON DIOXIDE 27 mmol/l (22-30); CHLORIDE 93 mmol/l (95-108); CREATININE 1.5 mg/dL (0.7-1.3); GFR 50 ML/MIN (>=60 (CALC)); GFR FOR AFR.AMER. 60 ML/MIN (>=60 (CALC)); LIPASE 76 u/l (23-300); POTASSIUM 4.7 mmol/l (3.5-5.1)
[2018-03-13 23:43] LABS: ANION GAP 15 (6-22 (CALC)); SODIUM 130 mmol/l (137-146); TOTAL PROTEIN 7.4 g/dL (6.3-8.2)
[2018-03-13 23:44] LABS: ALBUMIN 4.3 g/dL (3.2-5.0); ALKALINE PHOSPHATASE 182 u/l (38-126); MYOGLOBIN 36 ng/mL (0 - 121); SGOT/AST 26 u/l (17-59)
[2018-03-14] VITALS (16 sets, daily range): BP systolic 111–153; BP diastolic 59–80
[2018-03-14] MEDS ORDERED: LYRICA50 MG PO (01:51)
[2018-03-14 05:11] LABS: HEMATOCRIT 35.6 % (39.0-50.0); HEMOGLOBIN 12.5 g/dl (14.0-18.0); IMMATURE GRANULOCYTES 0.3 % (0.0-5.0); MEAN CELL VOLUME 81.3 fL CALC (80.0-100.0); MEAN CORPUSCULAR HGB 28.5 pG CALC (26.0-32.0); MEAN CORPUSCULAR HGB CONC 35.1 g/L CALC (32.0-36.0); NEUT# 4.32 thou/uL (1.82-7.42); RED BLOOD COUNT 4.38 mill/uL (4.70-6.10)
[2018-03-14 05:41] LABS: BUN 23 mg/dL (9-20); BUN/CREATININE RATIO 17 (12-20 (CALC)); CARBON DIOXIDE 27 mmol/l (22-30); CREATININE 1.4 mg/dL (0.7-1.3); GFR 54 ML/MIN (>=60 (CALC)); GFR FOR AFR.AMER. > 60 ML/MIN (>=60 (CALC)); POTASSIUM 3.8 mmol/l (3.5-5.1)
[2018-03-14 05:43] LABS: ANION GAP 14 (6-22 (CALC)); SODIUM 142 mmol/l (137-146)
[2018-03-14 05:44] LABS: CHLORIDE 105 mmol/l (95-108)
[2018-03-14 16:44] LABS: ANION GAP 9 (6-22 (CALC)); BUN 19 mg/dL (9-20); BUN/CREATININE RATIO 16 (12-20 (CALC)); CARBON DIOXIDE 29 mmol/l (22-30); CHLORIDE 105 mmol/l (95-108); CREATININE 1.2 mg/dL (0.7-1.3); GFR > 60 ML/MIN (>=60 (CALC)); GFR FOR AFR.AMER. > 60 ML/MIN (>=60 (CALC)); POTASSIUM 4.3 mmol/l (3.5-5.1); SODIUM 139 mmol/l (137-146)
[2018-03-15 00:01] VITALS: BP 131/72
[2018-03-15 02:00] VITALS: BP 120/71
[2018-03-15 04:00] VITALS: BP 132/68
[2018-03-15 05:50] VITALS: BP 120/72
[2018-03-15 08:00] VITALS: BP 130/74
[2018-03-15 09:11] VITALS: BP 130/74
== END 2018-03-15 09:20 | disposition home or self-care (01) | DRG 638 ==
LOC: ED 21:36 → ED-I 03-14 00:20 → ED 03-14 02:10 → ICU 03-14 02:11
PROVIDERS: Emergency Medicine; ADMIT Internal Medicine Geriatric Medicine; ATTEND Internal Medicine Geriatric Medicine
DX: E11.65 Type 2 diabetes mellitus with hyperglycemia (principal); F11.20 Opioid dependence, uncomplicated; K86.1 Other chronic pancreatitis; I10 Essential (primary) hypertension; I25.10 Atherosclerotic heart disease of native coronary artery without angina pectoris; K21.9 Gastro-esophageal reflux disease without esophagitis; G89.29 Other chronic pain; M54.5 Low back pain; F41.9 Anxiety disorder, unspecified; K27.9 Peptic ulcer, site unspecified, unspecified as acute or chronic, without hemorrhage or perforation; F32.9 Major depressive disorder, single episode, unspecified; I25.2 Old myocardial infarction; Z90.411 Acquired partial absence of pancreas; Z95.5 Presence of coronary angioplasty implant and graft; Z95.1 Presence of aortocoronary bypass graft; Z98.890 Other specified postprocedural states; Z79.4 Long term (current) use of insulin; Z91.14 Patient's other noncompliance with medication regimen
CPT/HCPCS: S0164

== ENCOUNTER 2018-06-17 03:18 | Observation (INO) | payer OTHER ==
[~2018-06-17] VITALS: Ht 172.7 cm; Wt 92.5 kg
[~2018-06-17 03:18] MED LIST changes: +LYRICA50 MG PO
--- NOTE | 2018-06-17 03:20 | NUR ---
PT DIRECTLY TO ROOM 13
--- NOTE | 2018-06-17 04:00 | NUR ---
ACCESSED PORT, BLOOD DRAWN AND SENT TO LAB.
[2018-06-17 04:03] LABS: HEMATOCRIT 37.1 % (39.0-50.0); HEMOGLOBIN 12.7 g/dl (14.0-18.0); IMMATURE GRANULOCYTES 0.5 % (0.0-5.0); MEAN CELL VOLUME 81.9 fL CALC (80.0-100.0); MEAN CORPUSCULAR HGB CONC 34.2 g/L CALC (32.0-36.0); NEUT# 4.25 thou/uL (1.82-7.42); RED BLOOD COUNT 4.53 mill/uL (4.70-6.10); RED CELL DISTRI WIDTH 12.5 % (11.5-15.5)
[2018-06-17 04:30] LABS: ALKALINE PHOSPHATASE 99 u/l (38-126); ANION GAP 13 (6-22 (CALC)); BILIRUBIN, TOTAL 0.3 mg/dL (0.0-1.4); BUN 21 mg/dL (9-20); BUN/CREATININE RATIO 14 (12-20 (CALC)); CARBON DIOXIDE 28 mmol/l (22-30); CHLORIDE 102 mmol/l (95-108); CREATININE 1.5 mg/dL (0.7-1.3); GFR 50 ML/MIN (>=60 (CALC)); GFR FOR AFR.AMER. 60 ML/MIN (>=60 (CALC)); POTASSIUM 3.6 mmol/l (3.5-5.1); SGOT/AST 16 u/l (17-59); SODIUM 139 mmol/l (137-146)
[2018-06-17 04:31] LABS: AMYLASE < 30 u/l (30-110); LIPASE 34 u/l (23-300)
[2018-06-17 04:42] LABS: MYOGLOBIN 26 ng/mL (0 - 121)
[2018-06-17 04:43] LABS: URINE BILIRUBIN - DIPSTICK NEGATIVE (NEGATIVE); URINE BLOOD DIPSTICK NEGATIVE (NEGATIVE); URINE COLOR YELLOW; URINE GLUCOSE - DIPSTICK 500 mg/dL (NEGATIVE); URINE KETONE NEGATIVE (NEGATIVE); URINE LEUK ESTERASE NEGATIVE (Negative); URINE NITRITE - DIPSTICK NEGATIVE (Negative); URINE PROTEIN - DIPSTICK NEGATIVE (NEG-TRACE); URINE UROBILINOGEN - DIPSTICK 0.2 E.U./dL (0.2)
[2018-06-17 04:45] LABS: URINE CLARITY CLEAR
[2018-06-17 04:49] LABS: BARBITURATES NEGATIVE (NEGATIVE); COCAINE POSITIVE (NEGATIVE); METHADONE NEGATIVE (NEGATIVE); OXCYCODONE NEGATIVE (NEGATIVE); TETRAHYDROCANNABIONOL NEGATIVE (NEGATIVE); TRICYLIC ANTIDEPRESSANTS NEGATIVE (NEGATIVE)
--- NOTE | 2018-06-17 04:50 | NUR ---
PT POSITIVE FOR COCAINE.
--- NOTE | 2018-06-17 05:00 | NUR ---
ADMIT ORDERS RECEIVED BUT PT NOT GOING TO FLOOR UNTIL [phone] PER FIRE EXTINGUISHER REPAIRER.
--- NOTE | 2018-06-17 05:57 | NUR ---
REPORT GIVEN TO MARCIA ROMERO BUT UNABLE TO TAKE PT UNTIL 629.
--- NOTE | 2018-06-17 06:28 | NUR ---
Admission Note Report Given to: MARCIA ROMERO Transported by: X Wheelchair Stretcher Transported with: X Nurse Transporter X Patent IV O2 X Prototype Carpenter
--- NOTE | 2018-06-17 06:30 | NUR ---
Admission Note Report Given to: MARCIA ROMERO Transported by: X Wheelchair Stretcher Transported with: X Nurse Transporter X Patent IV O2 X Wind Tunnel Mechanic- TELE MONITOR PT TRANSPORTED TO MS [address]
--- NOTE | 2018-06-17 07:05 | NUR ---
PT REPORT RECIEVED FROM MARCIA ROMERO. PT SLEEPING. NO S/S OF DISTRESS. CALL LIGHT IN REACH. WILL CONTINUE TO MONITOR.
[2018-06-17 08:25] VITALS: BP 141/83
--- NOTE | 2018-06-17 08:25 | NUR ---
PT A/O X3. SPEECH IS CLEAR. PERRLA. RESP EVEN AND UNLABORED. LUNG SOUNDS CLEAR. TELE IN PLACE. PT C/O PRESSURE/SHARP CHEST PAIN. 8 OUT OF 10 ON PAIN SCALE. MEDICATED W/ 25 MG DEMEROL IV. RELAXATION TECHNIQUES IN PLACE. BOWEL SOUNDS ACTIVE X4. STRONG RADIAL AND PEDAL PULSES. RT CHEST PORT IN PLACE. FLUSHED AND PATENT. SITE APPEARS HEALTHY. SKIN INTACT. PT DENIES ANY FURTHER NEEDS. POC DISCUSSED. SAFETY PRECAUTIONS IN PLACE. CALL LIGHT IN REACH. WILL CONTINUE TO MONITOR.
--- NOTE | 2018-06-17 08:40 | NUR ---
DR. SWIFT IN TO SEE PT
--- NOTE | 2018-06-17 12:20 | NUR ---
PT EATING LUNCH IN BED. TELE IN PLACE. NO C/O PAIN OR NEEDS. CALL LIGHT IN REACH. WILL CONTINUE TO MONITOR
[2018-06-17 12:28] VITALS: BP 123/77
--- NOTE | 2018-06-17 16:00 | NUR ---
PT SLEEPING IN BED. NO C/O PAIN OR NEEDS. TELE IN PLACE. CALL LIGHT IN REACH. WILL CONTINUE TO MONITOR
[2018-06-17 16:43] VITALS: BP 126/77
[2018-06-17 18:50] VITALS: BP 145/83
--- NOTE | 2018-06-17 19:00 | NUR ---
REPORT RECIEVED FROM NADIR. POC DISCUSSED. PT VOICED UNDERSTANDING. DENIES PAIN AT CURRENT TIME. BED IN LOWESST POSITOIN AND CALL LIGHT WITH IN REACH.
--- NOTE | 2018-06-17 22:30 | NUR ---
PT RESTING IN BED. MD CALLED AND INSULIN ORDERS INTIATED. PT COVER WITH 30 UNITS OF INSULIN. PT DENIES CURRENT CHEST PAIN. PORT PATENT. DRG CLEAN DRY AND INTACT.V/S WNL. BED IN LOWEST POSITION. CALL IGHT WITHIN REACH. WILL CONTINUE TO MONITOR.
[2018-06-17 23:40] VITALS: BP 135/85
--- NOTE | 2018-06-18 00:20 | NUR ---
LABS DRAWN FROM PORT FOR TROPONIN. RESULTS WERE NEGATIVE. POST FUSHED WITH 20 CC OF SALINE D/T PORT BEING SLUGGISH. NO OTHER CONCERNS AT THE MOMENT.BED IN LOWEST POSITON. WILL MONITOR
[2018-06-18 04:05] VITALS: BP 119/68
[2018-06-18 07:25] VITALS: BP 98/66
--- NOTE | 2018-06-18 07:31 | NUR ---
REPORT RECEIVED FROM NIGHT NURSE; PT SITTING UP IN BED WATCHING TV; RESP EVEN AND UNLABORED ON ROOM AIR; R PORT FLUSHED AND ASPIRATED WITHOUT DIFFICULTY; DRESSING CDI; LUNGS CLEAR; PULSES STRONG; ACTIVE BS; TELE IN PLACE; CALL HUBER IN REACH; VOICE NO CONCERNS; WILL CONTINUE TO MONITOR.
--- NOTE | 2018-06-18 11:45 | NUR ---
Discharge instructions given. Patient verbalizes understanding of same. Discharged in stable condition via Wheelchair to Home with spouse. All belongings sent with pt.
== END 2018-06-18 11:29 | disposition home or self-care (01) ==
LOC: ED 03:18 → ED-I 04:37 → ED 04:50 → ED-I 04:51 → MS2 06:10
PROVIDERS: Emergency Medicine; ADMIT Internal Medicine Geriatric Medicine; ATTEND Internal Medicine Geriatric Medicine
DX: I25.110 Atherosclerotic heart disease of native coronary artery with unstable angina pectoris (principal); I10 Essential (primary) hypertension; E11.65 Type 2 diabetes mellitus with hyperglycemia; K21.9 Gastro-esophageal reflux disease without esophagitis; F14.10 Cocaine abuse, uncomplicated; F11.20 Opioid dependence, uncomplicated; K86.1 Other chronic pancreatitis; M54.5 Low back pain; K27.9 Peptic ulcer, site unspecified, unspecified as acute or chronic, without hemorrhage or perforation; I25.2 Old myocardial infarction; Z95.5 Presence of coronary angioplasty implant and graft; Z96.41 Presence of insulin pump (external) (internal); Z79.4 Long term (current) use of insulin; Z95.1 Presence of aortocoronary bypass graft
CPT/HCPCS: G0378

== ENCOUNTER 2019-02-06 21:18 | Emergency (ER) | payer OTHER ==
[~2019-02-06] VITALS: Ht 172.7 cm; Wt 100.0 kg
[2019-02-06 22:07] LABS: HEMOGLOBIN 12.2 g/dl (14.0-18.0); IMMATURE GRANULOCYTES 0.6 % (0.0-5.0); MEAN CELL VOLUME 83.7 fL CALC (80.0-100.0); MEAN CORPUSCULAR HGB 28.4 pG CALC (26.0-32.0); MEAN CORPUSCULAR HGB CONC 33.9 g/L CALC (32.0-36.0); NEUT# 5.03 thou/uL (1.82-7.42); RED BLOOD COUNT 4.3 mill/uL (4.70-6.10); RED CELL DISTRI WIDTH 12.1 % (11.5-15.5)
[2019-02-06 22:24] LABS: ALBUMIN 4.1 g/dL (3.2-5.0); AMYLASE 35 u/l (30-110); BUN 23 mg/dL (9-20); BUN/CREATININE RATIO 16 (12-20 (CALC)); CARBON DIOXIDE 28 mmol/l (22-30); CHLORIDE 96 mmol/l (95-108); CREATININE 1.4 mg/dL (0.7-1.3); GFR 54 ML/MIN (>=60 (CALC)); GFR FOR AFR.AMER. > 60 ML/MIN (>=60 (CALC)); LIPASE 62 u/l (23-300); SGOT/AST 24 u/l (17-59); SODIUM 133 mmol/l (137-146); TOTAL PROTEIN 7.4 g/dL (6.3-8.2)
[2019-02-06 22:31] LABS: ALKALINE PHOSPHATASE 164 u/l (38-126); ANION GAP 14 (6-22 (CALC)); BILIRUBIN, TOTAL 0.5 mg/dL (0.0-1.4); POTASSIUM 4.6 mmol/l (3.5-5.1)
[2019-02-06 22:39] LABS: MYOGLOBIN 38 ng/mL (0 - 121)
[2019-02-07 00:30] VITALS: BP 134/60
== END 2019-02-07 00:30 | disposition home or self-care (01) ==
LOC: ED 21:18
PROVIDERS: Family Medicine
DX: K85.90 Acute pancreatitis without necrosis or infection, unspecified (principal); K86.1 Other chronic pancreatitis; E11.9 Type 2 diabetes mellitus without complications; I10 Essential (primary) hypertension; Z95.1 Presence of aortocoronary bypass graft; Z95.5 Presence of coronary angioplasty implant and graft

== ENCOUNTER 2019-02-22 14:05 | Emergency (ER) | payer OTHER ==
[~2019-02-22] VITALS: Ht 172.7 cm; Wt 75.0 kg
[2019-02-22 14:51] LABS: HEMATOCRIT 35.2 % (39.0-50.0); HEMOGLOBIN 11.9 g/dl (14.0-18.0); IMMATURE GRANULOCYTES 0.8 % (0.0-5.0); MEAN CELL VOLUME 83.2 fL CALC (80.0-100.0); MEAN CORPUSCULAR HGB 28.1 pG CALC (26.0-32.0); MEAN CORPUSCULAR HGB CONC 33.8 g/L CALC (32.0-36.0); NEUT# 3.67 thou/uL (1.82-7.42); RED BLOOD COUNT 4.23 mill/uL (4.70-6.10)
[2019-02-22 15:22] LABS: ALBUMIN 4.1 g/dL (3.2-5.0); ALKALINE PHOSPHATASE 140 u/l (38-126); ANION GAP 10 (6-22 (CALC)); BILIRUBIN, TOTAL 0.4 mg/dL (0.0-1.4); BUN 18 mg/dL (9-20); BUN/CREATININE RATIO 15 (12-20 (CALC)); CARBON DIOXIDE 33 mmol/l (22-30); CHLORIDE 99 mmol/l (95-108); CREATININE 1.2 mg/dL (0.7-1.3); GFR > 60 ML/MIN (>=60 (CALC)); GFR FOR AFR.AMER. > 60 ML/MIN (>=60 (CALC)); LIPASE 37 u/l (23-300); POTASSIUM 4.2 mmol/l (3.5-5.1); SGOT/AST 39 u/l (17-59); SODIUM 138 mmol/l (137-146); TOTAL PROTEIN 7.5 g/dL (6.3-8.2)
[2019-02-22 16:30] LABS: URINE BILIRUBIN - DIPSTICK NEGATIVE (NEGATIVE); URINE BLOOD DIPSTICK NEGATIVE (NEGATIVE); URINE COLOR YELLOW; URINE GLUCOSE - DIPSTICK >=1000 mg/dL (NEGATIVE); URINE KETONE NEGATIVE (NEGATIVE); URINE LEUK ESTERASE NEGATIVE (NEGATIVE); URINE NITRITE - DIPSTICK NEGATIVE (Negative); URINE PROTEIN - DIPSTICK NEGATIVE (NEG-TRACE); URINE SPECIFIC GRAVITY 1.015; URINE UROBILINOGEN - DIPSTICK 0.2 E.U./dL (0.2)
[2019-02-22 16:34] LABS: BARBITURATES NEGATIVE (NEGATIVE); COCAINE NEGATIVE (NEGATIVE); METHADONE NEGATIVE (NEGATIVE); OXCYCODONE NEGATIVE (NEGATIVE); TETRAHYDROCANNABIONOL NEGATIVE (NEGATIVE); TRICYLIC ANTIDEPRESSANTS NEGATIVE (NEGATIVE)
[2019-02-22 17:33] VITALS: BP 162/90
== END 2019-02-22 17:33 | disposition home or self-care (01) ==
LOC: ED 14:05
DX: R10.11 Right upper quadrant pain (principal); E11.9 Type 2 diabetes mellitus without complications; I10 Essential (primary) hypertension; Z95.1 Presence of aortocoronary bypass graft; Z95.5 Presence of coronary angioplasty implant and graft; Z79.4 Long term (current) use of insulin
CPT/HCPCS: Q9967

== ENCOUNTER 2019-12-22 20:12 | Emergency (ER) | payer OTHER ==
[~2019-12-22] VITALS: Ht 172.7 cm; Wt 81.8 kg
[2019-12-22 20:48] LABS: HEMATOCRIT 40.2 % (39.0-50.0); HEMOGLOBIN 12.9 g/dl (14.0-18.0); IMMATURE GRANULOCYTES 0.4 % (0.0-5.0); MEAN CELL VOLUME 82.9 fL CALC (80.0-100.0); MEAN CORPUSCULAR HGB 26.6 pG CALC (26.0-32.0); MEAN CORPUSCULAR HGB CONC 32.1 g/dL CAL (32.0-36.0); NEUT# 4.3 thou/uL (1.82-7.42); RED BLOOD COUNT 4.85 mill/uL (4.70-6.10); RED CELL DISTRI WIDTH 12.7 % (11.5-15.5)
[2019-12-22 21:06] LABS: ALBUMIN 4.4 g/dL (3.2-5.0); CREATININE 1.5 mg/dL (0.7-1.3); POTASSIUM 4.9 mmol/l (3.5-5.1)
[2019-12-22 21:12] LABS: BILIRUBIN, TOTAL 0.8 mg/dL (0.0-1.4)
[2019-12-22] MEDS ORDERED: ULTRAM50 M1 PO (23:35)
[2019-12-22 23:42] VITALS: BP 119/61
[2020-01-26] MEDS ORDERED: LANTUS SOL100 UNIT/M SC (11:43)
[2020-01-26] MEDS ORDERED: EZETIMIBE10 MG PO (11:45)
[2020-01-26] MEDS ORDERED: RENEXA PO (11:45)
[2020-01-26] MEDS ORDERED: SERTRALINE25 MG PO (11:46)
[2020-01-26] MEDS ORDERED: NORVASC5 M1 PO (11:46)
[2020-01-26] MEDS ORDERED: ATIVAN1 MG PO (11:46)
== END 2019-12-23 00:10 | disposition home or self-care (01) ==
LOC: ED 20:12
PROVIDERS: Emergency Medicine
DX: S83.91XA Sprain of unspecified site of right knee, initial encounter (principal); M25.511 Pain in right shoulder; M25.551 Pain in right hip; E11.65 Type 2 diabetes mellitus with hyperglycemia; I10 Essential (primary) hypertension; I25.10 Atherosclerotic heart disease of native coronary artery without angina pectoris; W01.0XXA Fall on same level from slipping, tripping and stumbling without subsequent striking against object, initial encounter; Y92.009 Unspecified place in unspecified non-institutional (private) residence as the place of occurrence of the external cause; Z95.5 Presence of coronary angioplasty implant and graft; Z95.1 Presence of aortocoronary bypass graft; Z79.4 Long term (current) use of insulin

== ENCOUNTER 2019-12-27 23:05 | Emergency (ER) | payer OTHER ==
[~2019-12-27] VITALS: Ht 172.7 cm; Wt 95.5 kg
[2019-12-28 00:29] LABS: HEMATOCRIT 37.8 % (39.0-50.0); HEMOGLOBIN 12.4 g/dl (14.0-18.0); IMMATURE GRANULOCYTES 0.5 % (0.0-5.0); MEAN CELL VOLUME 82.4 fL CALC (80.0-100.0); MEAN CORPUSCULAR HGB CONC 32.8 g/dL CAL (32.0-36.0); NEUT# 3.97 thou/uL (1.82-7.42); RED BLOOD COUNT 4.59 mill/uL (4.70-6.10); RED CELL DISTRI WIDTH 12.8 % (11.5-15.5)
[2019-12-28 00:40] LABS: ALBUMIN 4.1 g/dL (3.2-5.0); ALKALINE PHOSPHATASE 117 u/l (38-126); ANION GAP 11 (6-22 (CALC)); BILIRUBIN, TOTAL 0.6 mg/dL (0.0-1.4); BUN 29 mg/dL (9-20); BUN/CREATININE RATIO 20 (12-20 (CALC)); CARBON DIOXIDE 30 mmol/l (22-30); CHLORIDE 95 mmol/l (95-108); CREATININE 1.5 mg/dL (0.7-1.3); GFR 49 ML/MIN (>=60 (CALC)); GFR FOR AFR.AMER. 60 ML/MIN (>=60 (CALC)); POTASSIUM 4.7 mmol/l (3.5-5.1); SGOT/AST 24 u/l (17-59); SODIUM 131 mmol/l (137-146); TOTAL PROTEIN 6.8 g/dL (6.3-8.2)
[2019-12-28 00:54] LABS: MYOGLOBIN 52 ng/mL (0 - 121)
[2019-12-28 01:03] LABS: ACT PARTIAL THROMBO TIME 71.3 SECONDS (20.0-32.5); PROTHROMBIN TIME 9.8 SECONDS (9.0-12.5)
[2019-12-28 01:46] LABS: D-DIMER 0.17 mg/L (0.19-0.60)
[2019-12-28 02:30] VITALS: BP 126/64
[2020-01-26] MEDS ORDERED: LANTUS SOL100 UNIT/M SC (11:43)
[2020-01-26] MEDS ORDERED: EZETIMIBE10 MG PO (11:45)
[2020-01-26] MEDS ORDERED: RENEXA PO (11:45)
[2020-01-26] MEDS ORDERED: NORVASC5 M1 PO (11:46)
[2020-01-26] MEDS ORDERED: ATIVAN1 MG PO (11:46)
[2020-01-26] MEDS ORDERED: SERTRALINE25 MG PO (11:46)
== END 2019-12-28 02:30 | disposition left against medical advice (07) ==
LOC: ED 23:05 → ED-I 23:32 → ED 12-28 02:30
PROVIDERS: Family Medicine
DX: R07.9 Chest pain, unspecified (principal); E11.65 Type 2 diabetes mellitus with hyperglycemia; I10 Essential (primary) hypertension; Z95.1 Presence of aortocoronary bypass graft; Z95.5 Presence of coronary angioplasty implant and graft; Z79.4 Long term (current) use of insulin; Z91.19 Patient's noncompliance with other medical treatment and regimen

== ENCOUNTER → 2020-02-02 | Day surgery (SDC) | payer OTHER ==
[~2020-02-02] VITALS: Ht 172.7 cm; Wt 87.1 kg
[~2020-02-02] MED LIST changes: +ATIVAN1 MG PO; +EZETIMIBE10 MG PO; +LANTUS SOL100 UNIT/M SC; +NORVASC5 M1 PO; +RENEXA PO; +SERTRALINE25 MG PO
[2020-02-02 11:59] VITALS: BP 102/64
== END ==
LOC: ENDO 01-26 10:30
PROVIDERS: ATTEND Surgery
DX: Z12.11 Encounter for screening for malignant neoplasm of colon (principal); U07.1 COVID-19; E11.9 Type 2 diabetes mellitus without complications; I10 Essential (primary) hypertension; Z95.1 Presence of aortocoronary bypass graft; Z95.5 Presence of coronary angioplasty implant and graft; Z79.4 Long term (current) use of insulin; Z53.09 Procedure and treatment not carried out because of other contraindication

== ENCOUNTER 2020-05-10 08:28 | Day surgery (SDC) | payer OTHER ==
[~2020-05-10] VITALS: Ht 172.7 cm; Wt 92.5 kg
[2020-05-10 11:40] VITALS: BP 121/71
== END 2020-05-10 12:07 | disposition home or self-care (01) ==
LOC: ENDO 08:28
PROVIDERS: ATTEND Surgery
DX: Z12.11 Encounter for screening for malignant neoplasm of colon (principal); K63.5 Polyp of colon; E11.9 Type 2 diabetes mellitus without complications; I10 Essential (primary) hypertension; Z95.1 Presence of aortocoronary bypass graft; Z95.5 Presence of coronary angioplasty implant and graft; Z79.4 Long term (current) use of insulin; Z20.822 Contact with and (suspected) exposure to COVID-19

== ENCOUNTER 2020-09-15 20:21 | Observation (INO) | payer OTHER ==
[~2020-09-15] VITALS: Ht 172.7 cm; Wt 93.0 kg
--- NOTE | 2020-09-15 20:30 | NUR ---
PT BROUGHT DIRECTLY TO [place] RM 12. NOTIFIED. PT PLACED ON JOURNEYMAN MACHINIST. EKG COMPLETE. PT REMAINS STABLE
--- NOTE | 2020-09-15 20:40 | NUR ---
PT REMAINS STABLE, LABS OBTAINED. MD AT BEDSIDE. MONITOR IN PLACE.
--- NOTE | 2020-09-15 20:50 | NUR ---
R/T AT BEDSIDE FOR ABG. PT TOLERATES WELL.
--- NOTE | 2020-09-15 20:56 | NUR ---
CALL PLACED TO SPECTROSCOPIST FOR DEMEROL.
[2020-09-15 20:58] LABS: HEMATOCRIT 38.4 % (39.0-50.0); HEMOGLOBIN 13.3 g/dl (14.0-18.0); IMMATURE GRANULOCYTES 0.3 % (0.0-5.0); MEAN CELL VOLUME 80.5 fL CALC (80.0-100.0); MEAN CORPUSCULAR HGB 27.9 pG CALC (26.0-32.0); MEAN CORPUSCULAR HGB CONC 34.6 g/dL CAL (32.0-36.0); NEUT# 6.62 thou/uL (1.82-7.42); RED BLOOD COUNT 4.77 mill/uL (4.70-6.10); RED CELL DISTRI WIDTH 11.6 % (11.5-15.5)
[2020-09-15 21:10] LABS: ALBUMIN 4.1 g/dL (3.2-5.0); ALKALINE PHOSPHATASE 132 u/l (38-126); AMYLASE 44 u/l (30-110); BILIRUBIN, TOTAL 0.8 mg/dL (0.0-1.4); BUN 42 mg/dL (9-20); BUN/CREATININE RATIO 20 (12-20 (CALC)); CHLORIDE 86 mmol/l (95-108); CREATININE 2.1 mg/dL (0.7-1.3); GFR 33 ML/MIN (>=60 (CALC)); GFR FOR AFR.AMER. 40 ML/MIN (>=60 (CALC)); LIPASE 68 u/l (23-300); SGOT/AST 19 u/l (17-59); TOTAL PROTEIN 7.5 g/dL (6.3-8.2)
[2020-09-15 21:17] LABS: ANION GAP 22 (6-22 (CALC)); CARBON DIOXIDE 21 mmol/l (22-30); SODIUM 124 mmol/l (137-146)
[2020-09-15 21:18] LABS: D-DIMER 0.3 mg/L (0.19-0.60)
--- NOTE | 2020-09-15 21:18 | NUR ---
O2 SATS 91% ON RA. O2 VIA NC APPLIED AT 2L. O2 SATS 97
[2020-09-15 21:24] LABS: ACT PARTIAL THROMBO TIME 27.5 SECONDS (20.0-32.5); MYOGLOBIN 63 ng/mL (0 - 121); PROTHROMBIN TIME 9.8 SECONDS (9.0-12.5)
--- NOTE | 2020-09-15 21:51 | NUR ---
Reassessment of patient completed. No distress noted.
--- NOTE | 2020-09-15 22:37 | NUR ---
Reassessment of patient completed. No distress noted.
--- NOTE | 2020-09-15 23:25 | NUR ---
REPORT GIVEN TO CHUCKY KENNEDY PT TO BE MOVED TO MED/EAN
[2020-09-15 23:37] VITALS: BP 132/69
--- NOTE | 2020-09-15 23:45 | NUR ---
PT ARRIVED ON FLOOR AT 2337 VIA WHEELCHAIR ESCORTED BY ER STAFF. REPORT REEIVED FROM LINDA COOPER. PT NOTED TO HAVE A PORT TO THE R CHEST WALL THAT WAS ACCESSED IN THE ER. SITE WITH Ns 125/HR. BREATHING MARGARET AND UNLABORED, LUNGS CTA. SKIN INTACT. C/O PAIN TO LUQ OF ABDOMEN, CLARIFIED PAIN MEDICATION ORDER, PENDING PHARMACY PUTTING INTO JUN. NO S/S OF DISTRESS NOTED. PT ON O2 @ 2L VIA NC. PT IS INDEPENDENT AND BLE TO MOVE FREELY ABOUT THE ROOM. PROVIDED PT WITH EXTENDED O2 TUBING. SAFETY PRECAUTIONS IN PLACE, BED IN LOWEST POSITION, CALL LIGHT WITHIN REACH. VERNA ALONZO
[2020-09-16 03:57] VITALS: BP 116/62
--- NOTE | 2020-09-16 04:15 | NUR ---
PT RESTING COMFORTABLY AT THIS TIME WITH HIS EYES CLOSED. PAIN MEDICATION ADMINSTERED AT APPOXIMATLY 0300, PT TOLERATED WELL. PT INDICATED HE HAD DECREASED PAIN LEVELS FOLLOWING ADMINSTRATION OF PAIN MEDS. LAB WAS UP TO PT AND BEDSIDE AND TROPONIN WAS DRAWN, PENDING RESULTS AT THIS TIME. NO COMPLAINTS VOICED. SAFETY PRECAUTIONS IN PLACE, FALL RISK ARMBAND AND ALLERGY ARMBAND PLACED ON PATIENT. BED IN LOWEST POSITION, CALL LIGHT WITHIN REACH. WILL MONITOR
[2020-09-16 07:00] VITALS: BP 127/71
--- NOTE | 2020-09-16 07:00 | NUR ---
PATIENT IN BED AT AT THIS TIME. PATIENT ALERT AND ORIENTED X 3. PATIENT GARRET ANY PAIN AT THIS TIME AND STATED "I WAS PREVIOUSLY MEDICATED FOR PAIN AND IT'S BETTER". SUPERVISOR FUR FLOOR WORKER DONE AT THIS TIME SEE INTERVENTIONS. RIGHT UPPER CHEST PORT PATENT AND IV FLUIDS .9 NORMAL SALINE INFUSING AT 125ML/HR. TELE MONITOR IN PLACE AND BEING MONITORED BY ED. 02 ON AT THIS TIME AT 2L AND SPO2 IS 100%. LUNG LI ARE CLEAR THROUGH OUT ALL LI. PATIENT WAS GIVEN 7UNITS OF SLIDING SCALE INSULIN FOR A BLOOD GLUCOSE OF 274. SIDERAILS ARE UP X 2 CALL LIGHT AND PERSONAL ITEMS ARE WITHIN REACH.
[2020-09-16 07:11] LABS: BUN 36 mg/dL (9-20); BUN/CREATININE RATIO 24 (12-20 (CALC)); CHOLESTEROL HDL RATIO 8.5 (<4.4 (CALC)); CREATININE 1.5 mg/dL (0.7-1.3); GFR 49 ML/MIN (>=60 (CALC)); GFR FOR AFR.AMER. 59 ML/MIN (>=60 (CALC)); HDL CHOLESTEROL 27 mg/dL (>=40); TOTAL CHOLESTEROL 231 mg/dl (0-199)
[2020-09-16 07:18] LABS: ANION GAP 9 (6-22 (CALC)); CARBON DIOXIDE 31 mmol/l (22-30); CHLORIDE 97 mmol/l (95-108); POTASSIUM 3.9 mmol/l (3.5-5.1); SODIUM 133 mmol/l (137-146); TOTAL TRIGLYCERIDES 723 mg/dl (30-149)
--- NOTE | 2020-09-16 08:50 | NUR ---
PROVIDER, JESUS PIKE IN ROOM ALONG WITH THIS NURSE (SILVER CASTRO RN). PATIENT UPSET THAT PROVIDER D/C IV DEMEROL FOR PATIENT. PROVIDER EXPLAINED TO PATIENT THE USE FOR DEMEROL AND EXPLAINED TO PATIENT THAT THIS MEDICATION HAS NOT BEEN ORDERED FOR HIM TO BE FILLED. PATIENT WAS SHOWN THE E-FORCE RECORD THAT MEDICATION HAS NOT BEEN ORDER FOR HIM HOME MEDICATION. PATIENT WAS EDUCATED ON THE PROPER INDICATION FOR USE OF MEDICATION. PATIENT BECAME VERY ANGERY AND STATED "I'M SIGNING OUT AMA IF I CAN'T HAVE MY PAIN MEDICATION. THIS NURSE HAD PATIENT DAILY MEDICATIONS TO GIVE TO PATIENT AT THIS TIME AND PATIENT REFUSED ALL MEDICATIONS AND SIGNED OUT AMA. PATIENT PORT WAS DEACCESSED AT THIS TIME UNDER ASEPTIC TECHINQUE AND PATIENT WAS ADVISED IF CONDITION WORSENS AT ANY TIME TO RETURN TO CLOSES ED. PATIENT WAS ALSO EDUCATED BENEFITS TO STAYING A PATIENT AND PATIENT REFUSED TO STAY.
[2020-09-16 09:05] VITALS: BP 127/71
== END 2020-09-16 08:58 | disposition left against medical advice (07) ==
LOC: ED 20:21 → ED-I 22:40 → ED 22:48 → MS2 22:49
PROVIDERS: Family Medicine; ADMIT Internal Medicine; ATTEND Internal Medicine
DX: R07.9 Chest pain, unspecified (principal); R10.9 Unspecified abdominal pain; N17.9 Acute kidney failure, unspecified; E87.1 Hypo-osmolality and hyponatremia; E11.65 Type 2 diabetes mellitus with hyperglycemia; F11.20 Opioid dependence, uncomplicated; G89.4 Chronic pain syndrome; E11.43 Type 2 diabetes mellitus with diabetic autonomic (poly)neuropathy; K31.84 Gastroparesis; I25.10 Atherosclerotic heart disease of native coronary artery without angina pectoris; I10 Essential (primary) hypertension; Z76.5 Malingerer [conscious simulation]; Z95.1 Presence of aortocoronary bypass graft; Z95.5 Presence of coronary angioplasty implant and graft; Z88.5 Allergy status to narcotic agent; Z88.8 Allergy status to other drugs, medicaments and biological substances; Z79.4 Long term (current) use of insulin; Z20.822 Contact with and (suspected) exposure to COVID-19
CPT/HCPCS: G0378; J1650

== ENCOUNTER 2022-06-15 14:37 | Observation (INO) | payer OTHER ==
[2022-06-15] VITALS (15 sets, daily range): BP systolic 122–169; BP diastolic 57–85
[~2022-06-15] VITALS: Ht 172.7 cm; Wt 91.8 kg
--- NOTE | 2022-06-15 14:45 | NUR ---
PATIENT ARRIVED VIA EMS AND TAKEN TO ROOM 12. EKG COMPLETED.
[2022-06-15 15:30] LABS: BASO% 0.3 % (0-3); EOS% 2.5 % (0-8); HEMOGLOBIN 10.5 g/dl (14.0-18.0); IMMATURE GRANULOCYTES 0.3 % (0.0-5.0); LYMPH% 25.6 % (15-41); MEAN CELL VOLUME 81.6 fL CALC (80.0-100.0); MEAN CORPUSCULAR HGB 26.8 pG CALC (26.0-32.0); MEAN CORPUSCULAR HGB CONC 32.8 g/dL CAL (32.0-36.0); NEUT# 4.43 thou/uL (1.82-7.42); NEUT% 64.3 % (42-76); RED BLOOD COUNT 3.92 mill/uL (4.70-6.10); RED CELL DISTRI WIDTH 12.2 % (11.5-15.5)
[2022-06-15 15:46] LABS: ALBUMIN 3.5 g/dL (3.2-5.0); ALKALINE PHOSPHATASE 130 u/l (38-126); ANION GAP 8 (6-22 (CALC)); BILIRUBIN, TOTAL 0.4 mg/dL (0.2-1.3); BUN 11 mg/dL (9-20); BUN/CREATININE RATIO 10 (12-20 (CALC)); CHLORIDE 105 mmol/l (95-108); CREATININE 1.1 mg/dL (0.7-1.3); GFR FOR AFR.AMER. > 60 ML/MIN (>=60 (CALC)); GFR OTHER RACES > 60 ML/MIN (>=60 (CALC)); POTASSIUM 4.2 mmol/l (3.5-5.1); SGOT/AST 40 u/l (17-59); SODIUM 132 mmol/l (137-146); TOTAL PROTEIN 6.3 g/dL (6.3-8.2)
[2022-06-15 15:54] LABS: CARBON DIOXIDE 23 mmol/l (22-30)
--- NOTE | 2022-06-15 17:00 | NUR ---
PATIENT RESTING IN BED. DAUGHTER AT BEDSIDE.
--- NOTE | 2022-06-15 18:43 | NUR ---
AWAITING ADMISSION. PATIENT GIVEN DINNER TRAY.
--- NOTE | 2022-06-15 19:07 | NUR ---
REPORT GIVEN TO GRZEGORZ ON MS.
--- NOTE | 2022-06-15 20:30 | NUR ---
PT BROUGHT UP FROM ER AT 1925 VIA WHEELCHAIR. PT IS AMBULATORY WITH STEADY GAIT ON ROOM AIR. A/OX4. DURING ASSESSMENT PT STATED ONSET OF CHEST PAIN AND HEAVINESS IN CHEST. TELEMENTRY MONITOROR READING SR. EKG ORDERED AND SHOWED SR. INFORMED OF PT STATUS. NO NEW ORDERS AT THIS TIME. WILL CONTINUE TO MONITOR. PT EDUCATED ON PLAN OF CARE AND CALL HUBER SYSTEM. CALL LIGHT WITHIN REACH AND SAFETY PRECAUTIONS IN PLACE.
--- NOTE | 2022-06-15 21:30 | NUR ---
PT STILL COMPLAINING OF CHEST PAIN. INFORMED OF REOCCURING THEME. TELEMETRY MONITORING STILL SHOWS SR. NO NEW ORDERS AT THIS TIME. WILL CONTINUE TO MONITOR.
--- NOTE | 2022-06-16 | NUR ---
PT IN BED SLEEPING. CHEST PAIN SUBSUDED. NO S/S OF DISTRESS. CALL LIGHT WITHIN REACH AND SAFETY PRECAUTIONS IN PLACE.
[2022-06-16 00:22] VITALS: BP 130/71
[2022-06-16 04:09] VITALS: BP 133/80
--- NOTE | 2022-06-16 04:58 | NUR ---
PT COMPLAINED OF CHEST PAIN 8 OUT OF 10. RECIEVED PAIN MEDICATION PER EMAR. TELEMTRY MONITOR SHOWS SR. WILL FOLLOW UP ON PAIN. CALL LIGHT WITHIN REACH AND SAFETY PRECAUTIONS IN PLACE.
[2022-06-16 05:52] LABS: CHOLESTEROL HDL RATIO 5.5 (<4.4 (CALC)); MAGNESIUM 2.2 mg/dL (1.6-2.3)
[2022-06-16 06:44] VITALS: BP 120/71
[2022-06-16 10:16] VITALS: BP 151/78
[2022-06-16] MEDS ORDERED: TRAMADOL HCL50 MG PO (11:14)
--- NOTE | 2022-06-16 12:41 | NUR ---
PATIENT DISCHARGE LEFT [id number] PIV AND HEART MONITOR REMOVED. DISCHARGE INSTRUCTION GIVEN. PATIENT STATED UNDERSTANDING.
== END 2022-06-16 12:32 | disposition home or self-care (01) ==
LOC: ED 14:37 → ED-I 17:20 → ED 17:58 → MS2 17:59
PROVIDERS: Family Medicine; ADMIT Internal Medicine; ATTEND Internal Medicine
DX: R07.9 Chest pain, unspecified (principal); I10 Essential (primary) hypertension; E11.65 Type 2 diabetes mellitus with hyperglycemia; E11.43 Type 2 diabetes mellitus with diabetic autonomic (poly)neuropathy; K31.84 Gastroparesis; I25.10 Atherosclerotic heart disease of native coronary artery without angina pectoris; G89.4 Chronic pain syndrome; I25.2 Old myocardial infarction; Z95.1 Presence of aortocoronary bypass graft; Z95.5 Presence of coronary angioplasty implant and graft; Z79.4 Long term (current) use of insulin; Z88.8 Allergy status to other drugs, medicaments and biological substances; Z79.891 Long term (current) use of opiate analgesic; Z85.07 Personal history of malignant neoplasm of pancreas; Z90.411 Acquired partial absence of pancreas
CPT/HCPCS: G0378; J1650

== ENCOUNTER 2022-08-06 20:21 | Observation (INO) | payer OTHER ==
[2022-08-06] VITALS (63 sets, daily range): BP systolic 121–212; BP diastolic 71–135
[~2022-08-06] VITALS: Ht 172.7 cm; Wt 100.3 kg
[~2022-08-06 20:21] MED LIST changes: +LANTUS100 UNIT SC
[2022-08-06 21:03] LABS: BASO% 0.6 % (0-3); EOS% 2.8 % (0-8); IMMATURE GRANULOCYTES 0.6 % (0.0-5.0); LYMPH% 28.1 % (15-41); MEAN CORPUSCULAR HGB 27.3 pG CALC (26.0-32.0); MEAN CORPUSCULAR HGB CONC 32.9 g/dL CAL (32.0-36.0); MONO% 8.8 % (2-13); NEUT# 4.94 thou/uL (1.82-7.42); NEUT% 59.1 % (42-76); RED BLOOD COUNT 4.58 mill/uL (4.70-6.10); RED CELL DISTRI WIDTH 12.6 % (11.5-15.5)
[2022-08-06 21:04] LABS: HEMOGLOBIN 12.5 g/dl (14.0-18.0)
[2022-08-06 21:16] LABS: ALKALINE PHOSPHATASE 124 u/l (38-126); BILIRUBIN, TOTAL 0.3 mg/dL (0.2-1.3); BUN 18 mg/dL (9-20); BUN/CREATININE RATIO 12 (12-20 (CALC)); CHLORIDE 103 mmol/l (95-108); CREATININE 1.6 mg/dL (0.7-1.3); GFR FOR AFR.AMER. 55 ML/MIN (>=60 (CALC)); GFR OTHER RACES 45 ML/MIN (>=60 (CALC)); LIPASE 38 u/l (23-300); POTASSIUM 4.9 mmol/l (3.5-5.1); SGOT/AST 33 u/l (17-59); SODIUM 138 mmol/l (137-146); TOTAL PROTEIN 7.5 g/dL (6.3-8.2)
[2022-08-06 21:18] LABS: ALBUMIN 4.3 g/dL (3.2-5.0); ANION GAP 12 (6-22 (CALC)); CARBON DIOXIDE 28 mmol/l (22-30)
[2022-08-07 02:09] VITALS: BP 181/90
[2022-08-07 04:19] VITALS: BP 134/64
[2022-08-07 06:25] VITALS: BP 166/76
[2022-08-07 08:29] VITALS: BP 157/69
[2022-08-07 10:38] VITALS: BP 166/92
== END 2022-08-07 14:54 | disposition home or self-care (01) ==
LOC: ED 20:21 → ED-I 21:30 → ED 21:50 → MS2 21:51 → ED 22:57 → ED-I 23:29 → MS2 08-07 14:54
PROVIDERS: Nurse Practitioner; ADMIT Internal Medicine; ATTEND Internal Medicine
DX: R07.9 Chest pain, unspecified (principal); I25.10 Atherosclerotic heart disease of native coronary artery without angina pectoris; I10 Essential (primary) hypertension; E11.43 Type 2 diabetes mellitus with diabetic autonomic (poly)neuropathy; K31.84 Gastroparesis; K86.1 Other chronic pancreatitis; G89.4 Chronic pain syndrome; K21.9 Gastro-esophageal reflux disease without esophagitis; F11.20 Opioid dependence, uncomplicated; Z85.07 Personal history of malignant neoplasm of pancreas; Z95.1 Presence of aortocoronary bypass graft; Z95.5 Presence of coronary angioplasty implant and graft; Z79.4 Long term (current) use of insulin; Z90.411 Acquired partial absence of pancreas
CPT/HCPCS: G0378

== ENCOUNTER 2022-09-05 17:10 | Observation (INO) | payer OTHER ==
[2022-09-05] VITALS (26 sets, daily range): BP systolic 124–164; BP diastolic 63–91
[~2022-09-05] VITALS: Ht 172.7 cm; Wt 101.0 kg
[2022-09-05 18:02] LABS: BASO% 0.4 % (0-3); EOS% 4.4 % (0-8); HEMATOCRIT 32.8 % (39.0-50.0); HEMOGLOBIN 10.8 g/dl (14.0-18.0); IMMATURE GRANULOCYTES 0.3 % (0.0-5.0); LYMPH% 21.2 % (15-41); MEAN CELL VOLUME 83.2 fL CALC (80.0-100.0); MEAN CORPUSCULAR HGB 27.4 pG CALC (26.0-32.0); MEAN CORPUSCULAR HGB CONC 32.9 g/dL CAL (32.0-36.0); NEUT# 4.61 thou/uL (1.82-7.42); NEUT% 62.7 % (42-76); RED BLOOD COUNT 3.94 mill/uL (4.70-6.10); RED CELL DISTRI WIDTH 12.9 % (11.5-15.5)
[2022-09-05 18:17] LABS: ALBUMIN 3.8 g/dL (3.2-5.0); ALKALINE PHOSPHATASE 132 u/l (38-126); ANION GAP 11 (6-22 (CALC)); BILIRUBIN, TOTAL 0.2 mg/dL (0.2-1.3); BUN 14 mg/dL (9-20); BUN/CREATININE RATIO 10 (12-20 (CALC)); CARBON DIOXIDE 23 mmol/l (22-30); CHLORIDE 109 mmol/l (95-108); CREATININE 1.4 mg/dL (0.7-1.3); GFR FOR AFR.AMER. > 60 ML/MIN (>=60 (CALC)); GFR OTHER RACES 53 ML/MIN (>=60 (CALC)); LIPASE 60 u/l (23-300); SGOT/AST 28 u/l (17-59); SODIUM 139 mmol/l (137-146); TOTAL PROTEIN 6.6 g/dL (6.3-8.2)
[2022-09-06] VITALS (15 sets, daily range): BP systolic 122–159; BP diastolic 64–94
[2022-09-06] MEDS ORDERED: APRESOLINE50 MG PO (01:02)
[2022-09-06] MEDS ORDERED: LIPITOR80 M1 PO (01:02)
[2022-09-07] VITALS (9 sets, daily range): BP systolic 106–152; BP diastolic 63–81
[2022-09-07 05:52] LABS: BASO% 0.7 % (0-3); EOS% 5.3 % (0-8); HEMOGLOBIN 11.5 g/dl (14.0-18.0); IMMATURE GRANULOCYTES 0.1 % (0.0-5.0); LYMPH% 27.1 % (15-41); MEAN CELL VOLUME 83.3 fL CALC (80.0-100.0); MEAN CORPUSCULAR HGB 27.4 pG CALC (26.0-32.0); MEAN CORPUSCULAR HGB CONC 32.9 g/dL CAL (32.0-36.0); MONO% 8.6 % (2-13); NEUT# 4.04 thou/uL (1.82-7.42); NEUT% 58.2 % (42-76); RED BLOOD COUNT 4.2 mill/uL (4.70-6.10); RED CELL DISTRI WIDTH 12.8 % (11.5-15.5)
[2022-09-07 06:09] LABS: ALBUMIN 3.7 g/dL (3.2-5.0); ALKALINE PHOSPHATASE 104 u/l (38-126); BUN 10 mg/dL (9-20); BUN/CREATININE RATIO 7 (12-20 (CALC)); CHLORIDE 101 mmol/l (95-108); CREATININE 1.3 mg/dL (0.7-1.3); GFR FOR AFR.AMER. > 60 ML/MIN (>=60 (CALC)); GFR OTHER RACES 58 ML/MIN (>=60 (CALC)); MAGNESIUM 1.9 mg/dL (1.6-2.3); POTASSIUM 3.6 mmol/l (3.5-5.1); SGOT/AST 27 u/l (17-59); SODIUM 138 mmol/l (137-146); TOTAL PROTEIN 6.4 g/dL (6.3-8.2)
[2022-09-07 06:15] LABS: ANION GAP 11 (6-22 (CALC)); BILIRUBIN, TOTAL 0.3 mg/dL (0.2-1.3); CARBON DIOXIDE 30 mmol/l (22-30)
[2022-09-08] VITALS: BP 152/72
[2022-09-08 04:00] VITALS: BP 131/69
[2022-09-08 04:02] VITALS: BP 131/69
[2022-09-08 05:02] LABS: HEMOGLOBIN 11.6 g/dl (14.0-18.0); MEAN CELL VOLUME 83.7 fL CALC (80.0-100.0); MEAN CORPUSCULAR HGB 27.8 pG CALC (26.0-32.0); MEAN CORPUSCULAR HGB CONC 33.1 g/dL CAL (32.0-36.0); RED BLOOD COUNT 4.18 mill/uL (4.70-6.10); RED CELL DISTRI WIDTH 12.7 % (11.5-15.5)
[2022-09-08 05:14] LABS: ALBUMIN 3.7 g/dL (3.2-5.0); ALKALINE PHOSPHATASE 112 u/l (38-126); ANION GAP 8 (6-22 (CALC)); BILIRUBIN, TOTAL 0.4 mg/dL (0.2-1.3); BUN 12 mg/dL (9-20); BUN/CREATININE RATIO 9 (12-20 (CALC)); CARBON DIOXIDE 33 mmol/l (22-30); CHLORIDE 102 mmol/l (95-108); CREATININE 1.2 mg/dL (0.7-1.3); GFR FOR AFR.AMER. > 60 ML/MIN (>=60 (CALC)); GFR OTHER RACES > 60 ML/MIN (>=60 (CALC)); MAGNESIUM 2.2 mg/dL (1.6-2.3); POTASSIUM 4.2 mmol/l (3.5-5.1); SGOT/AST 36 u/l (17-59); SODIUM 139 mmol/l (137-146); TOTAL PROTEIN 6.2 g/dL (6.3-8.2)
[2022-09-08 06:55] VITALS: BP 127/68
[2022-09-08 11:38] VITALS: BP 123/65
[2022-09-08 17:09] VITALS: BP 134/72
[2022-09-09 00:05] VITALS: BP 123/69
[2022-09-09 04:29] VITALS: BP 124/71
[2022-09-09 05:06] LABS: HEMATOCRIT 36.9 % (39.0-50.0); HEMOGLOBIN 12.1 g/dl (14.0-18.0); MEAN CELL VOLUME 83.1 fL CALC (80.0-100.0); MEAN CORPUSCULAR HGB 27.3 pG CALC (26.0-32.0); MEAN CORPUSCULAR HGB CONC 32.8 g/dL CAL (32.0-36.0); RED BLOOD COUNT 4.44 mill/uL (4.70-6.10); RED CELL DISTRI WIDTH 12.8 % (11.5-15.5)
[2022-09-09 05:14] LABS: ALKALINE PHOSPHATASE 112 u/l (38-126); ANION GAP 8 (6-22 (CALC)); BILIRUBIN, TOTAL 0.3 mg/dL (0.2-1.3); BUN 12 mg/dL (9-20); BUN/CREATININE RATIO 9 (12-20 (CALC)); CARBON DIOXIDE 33 mmol/l (22-30); CHLORIDE 102 mmol/l (95-108); CREATININE 1.3 mg/dL (0.7-1.3); GFR FOR AFR.AMER. > 60 ML/MIN (>=60 (CALC)); GFR OTHER RACES 58 ML/MIN (>=60 (CALC)); MAGNESIUM 2.1 mg/dL (1.6-2.3); POTASSIUM 3.7 mmol/l (3.5-5.1); SGOT/AST 46 u/l (17-59); SODIUM 139 mmol/l (137-146); TOTAL PROTEIN 6.6 g/dL (6.3-8.2)
[2022-09-09 07:36] VITALS: BP 140/72
[2022-09-09 09:05] VITALS: BP 140/72
[2022-09-09] MEDS ORDERED: CIPROFLOXACN500 MG PO (09:54)
[2022-09-09] MEDS ORDERED: METRONIDAZOLE500 MG PO (09:55)
== END 2022-09-09 11:36 | disposition home or self-care (01) ==
LOC: ED 17:10 → ED-I 23:10 → ED 09-06 01:07 → MS2 09-06 01:08
PROVIDERS: Internal Medicine; Nurse Practitioner; Nurse Practitioner Family; ADMIT Internal Medicine; ATTEND Internal Medicine
DX: R10.84 Generalized abdominal pain (principal); R14.0 Abdominal distension (gaseous); R60.0 Localized edema; R07.9 Chest pain, unspecified; K59.00 Constipation, unspecified; I10 Essential (primary) hypertension; E11.65 Type 2 diabetes mellitus with hyperglycemia; E11.43 Type 2 diabetes mellitus with diabetic autonomic (poly)neuropathy; K31.84 Gastroparesis; I25.10 Atherosclerotic heart disease of native coronary artery without angina pectoris; K21.9 Gastro-esophageal reflux disease without esophagitis; K86.1 Other chronic pancreatitis; G89.4 Chronic pain syndrome; F11.20 Opioid dependence, uncomplicated; Z90.411 Acquired partial absence of pancreas; Z95.5 Presence of coronary angioplasty implant and graft; Z95.1 Presence of aortocoronary bypass graft; Z79.4 Long term (current) use of insulin; Z86.010 Personal history of colon polyps; Z79.02 Long term (current) use of antithrombotics/antiplatelets; Z79.82 Long term (current) use of aspirin
CPT/HCPCS: G0378; Q9967

== ENCOUNTER 2022-09-19 17:23 | Emergency (ER) | payer OTHER ==
[~2022-09-19] VITALS: Ht 175.3 cm; Wt 99.8 kg
[~2022-09-19 17:23] MED LIST changes: +APRESOLINE50 MG PO; +LIPITOR80 M1 PO; +METRONIDAZOLE500 MG PO
[2022-09-19] MEDS ORDERED: FLEXERIL5 M1 PO (18:33)
[2022-09-19] MEDS ORDERED: DEMEROL50 MG/ML IJ (18:33)
[2022-09-19] MEDS ORDERED: ISOSORBIDE MONO60 MG PO (18:34)
[2022-09-19 18:37] LABS: BASO% 0.5 % (0-3); EOS% 4.8 % (0-8); HEMATOCRIT 34.6 % (39.0-50.0); HEMOGLOBIN 11.4 g/dl (14.0-18.0); IMMATURE GRANULOCYTES 0.4 % (0.0-5.0); LYMPH% 25.7 % (15-41); MEAN CELL VOLUME 84.4 fL CALC (80.0-100.0); MEAN CORPUSCULAR HGB 27.8 pG CALC (26.0-32.0); MEAN CORPUSCULAR HGB CONC 32.9 g/dL CAL (32.0-36.0); MONO% 7.6 % (2-13); NEUT# 4.72 thou/uL (1.82-7.42); RED BLOOD COUNT 4.1 mill/uL (4.70-6.10); RED CELL DISTRI WIDTH 13.1 % (11.5-15.5)
[2022-09-19] MEDS ORDERED: TRAZODONE100 MG PO (18:38)
[2022-09-19 18:54] LABS: ALBUMIN 4.2 g/dL (3.2-5.0); BILIRUBIN, TOTAL 0.3 mg/dL (0.2-1.3); CREATININE 1.6 mg/dL (0.7-1.3); POTASSIUM 4.3 mmol/l (3.5-5.1)
[2022-09-19 19:54] LABS: URINE BILIRUBIN - DIPSTICK NEGATIVE (NEGATIVE); URINE BLOOD DIPSTICK NEGATIVE (NEGATIVE); URINE COLOR YELLOW; URINE GLUCOSE - DIPSTICK >=1000 mg/dL (NEGATIVE); URINE KETONE NEGATIVE (NEGATIVE); URINE LEUK ESTERASE NEGATIVE (NEGATIVE); URINE PROTEIN - DIPSTICK NEGATIVE (NEG-TRACE); URINE SPECIFIC GRAVITY 1.015; URINE UROBILINOGEN - DIPSTICK 0.2 E.U./dL (0.2)
[2022-09-19 20:00] LABS: AMYLASE 36 u/l (30-110); LIPASE 62 u/l (23-300)
[2022-09-19 20:23] LABS: URINE NITRITE - DIPSTICK NEGATIVE (Negative)
[2022-09-19] MEDS ORDERED: CIPROFLOXACN500 MG PO (21:48)
[2022-09-19] MEDS ORDERED: METRONIDAZOLE500 MG PO (21:48)
[2022-09-19] MEDS ORDERED: LORTAB 1010 MG PO (21:48)
[2022-09-19 22:05] VITALS: BP 151/75
== END 2022-09-19 22:38 | disposition home or self-care (01) ==
LOC: ED 17:23
PROVIDERS: Emergency Medicine; Family Medicine
DX: K57.32 Diverticulitis of large intestine without perforation or abscess without bleeding (principal); K59.00 Constipation, unspecified; E11.65 Type 2 diabetes mellitus with hyperglycemia; R74.8 Abnormal levels of other serum enzymes; I10 Essential (primary) hypertension; Z95.1 Presence of aortocoronary bypass graft; Z95.5 Presence of coronary angioplasty implant and graft; Z90.411 Acquired partial absence of pancreas; Z79.4 Long term (current) use of insulin; Z20.822 Contact with and (suspected) exposure to COVID-19

== ENCOUNTER 2022-09-28 22:58 | Inpatient (IN) | payer OTHER ==
[~2022-09-28] VITALS: Ht 175.3 cm; Wt 207.2 kg
[~2022-09-28 22:58] MED LIST changes: +DEMEROL50 MG/ML IJ; +FLEXERIL5 M1 PO; +ISOSORBIDE MONO60 MG PO; +LORTAB 1010 MG PO; +TRAZODONE100 MG PO
--- NOTE | 2022-09-28 23:00 | NUR ---
PT ARRIVES VIA EMS IN STABLE CONDITION, PT REPORTS ABD PAIN, N/V/D. INITIALLY STATES " STARTED THIS AM" BUT WHEN REVIEWING MEDICATIONS WITH PT, HE STATES " WAS GIVEN ANTIBIOTICS FOR DIVERTICULITIS LAST WEEK" AIRWAY PATENT, RESP SHALLOW, LS CLEAR, ABD SOFT, TENDER, BS HYPOACTIVE.
[2022-09-28 23:06] VITALS: BP 160/80
[2022-09-28 23:19] LABS: BASO% 0.2 % (0-3); IMMATURE GRANULOCYTES 0.3 % (0.0-5.0); LYMPH% 5.5 % (15-41); MEAN CORPUSCULAR HGB 27.5 pG CALC (26.0-32.0); MEAN CORPUSCULAR HGB CONC 33.6 g/dL CAL (32.0-36.0); NEUT# 16.27 thou/uL (1.82-7.42); RED BLOOD COUNT 5.05 mill/uL (4.70-6.10); RED CELL DISTRI WIDTH 12.5 % (11.5-15.5)
[2022-09-28 23:25] LABS: HEMATOCRIT 41.4 % (39.0-50.0); HEMOGLOBIN 13.9 g/dl (14.0-18.0)
[2022-09-28 23:30] VITALS: BP 151/73
[2022-09-28 23:41] LABS: ALKALINE PHOSPHATASE 172 u/l (38-126); BUN 37 mg/dL (9-20); BUN/CREATININE RATIO 16 (12-20 (CALC)); CHLORIDE 89 mmol/l (95-108); CREATININE 2.3 mg/dL (0.7-1.3); GFR FOR AFR.AMER. 36 ML/MIN (>=60 (CALC)); GFR OTHER RACES 30 ML/MIN (>=60 (CALC)); LIPASE 52 u/l (23-300); MAGNESIUM 2.1 mg/dL (1.6-2.3); SODIUM 130 mmol/l (137-146); TOTAL PROTEIN 7.7 g/dL (6.3-8.2)
[2022-09-28 23:52] LABS: ANION GAP 40 (6-22 (CALC)); BILIRUBIN, TOTAL 0.6 mg/dL (0.2-1.3); CARBON DIOXIDE 7 mmol/l (22-30); POTASSIUM 5.9 mmol/l (3.5-5.1); SGOT/AST 23 u/l (17-59)
[2022-09-29] VITALS (59 sets, daily range): BP systolic 118–172; BP diastolic 64–94
--- NOTE | 2022-09-29 | NUR ---
PT RESTING WITH EYES CLOSED, AWAKENS EASILY. IVF INFUSING # 20 LEFT FOREARM, NO COMPLAINTS VOICED AT THIS TIME.
--- NOTE | 2022-09-29 00:02 | NUR ---
REPEAT ACCUCHECK HI
--- NOTE | 2022-09-29 01:00 | NUR ---
pt resting with eyes closed, awakens easily. monitor shows sinus tach, resp 26-30 , 02 98%ra. Pt voices no complaints while awake. Will continue to monitor.
[2022-09-29 01:01] LABS: URINE BLOOD DIPSTICK TRACE-INTACT (NEGATIVE); URINE COLOR YELLOW; URINE GLUCOSE - DIPSTICK >=1000 mg/dL (NEGATIVE); URINE KETONE >=80 mg/dL (NEGATIVE); URINE LEUK ESTERASE NEGATIVE (NEGATIVE); URINE PH 5.5 (4.5-8.0); URINE PROTEIN - DIPSTICK NEGATIVE (NEG-TRACE); URINE UROBILINOGEN - DIPSTICK 0.2 E.U./dL (0.2)
[2022-09-29 01:02] LABS: URINE BILIRUBIN - DIPSTICK SEE COMMNET (NEGATIVE); URINE NITRITE - DIPSTICK NEGATIVE (Negative)
--- NOTE | 2022-09-29 02:00 | NUR ---
No change in pt status. Monitor shows sinus tach, Pt resting with eyes closed, awakens to verbal stimuli. urinal given, pt voids approximately 600cc clear yellow urine. No complaints voiced at this time. MD at bedside to discuss plans for admission.
--- NOTE | 2022-09-29 02:59 | NUR ---
Pt awake, pt c/o nausea, emesis bag given, pt had one episode of vomiting. will check mar for order for antiemetics.
--- NOTE | 2022-09-29 03:20 | NUR ---
PT VOMITED DARK RED EMESIS ABOUT 100. RN TESTED IT. RESULTS WERE POSITIVE FOR BLOOD. WILL NOTIFY DR DUARTE. ELEVATOR REPAIRER HELPER NOTIFIED. POWER PORT ACCESSED
--- NOTE | 2022-09-29 03:25 | NUR ---
PATIENT ARRIVED ON THE UNIT VIA STRETCHER ACCOMPANIED BY ER NURSE. ADMISSION AND ASSESSMENT COMPLETED, NO ACUTE DISTRESS NOTED. HE IS ALERT AND ORIENTED X3. LUNGS CLEAR, PORT NOTED TO RIGHT UPPER CHEST. RUNNING IVF AND PROTONIX. BOWEL SOUNDS ACTIVE. SKIN INTACT. WILL CONTINUE TO MONITOR,
--- NOTE | 2022-09-29 03:30 | NUR ---
PT TRANSPORTED TO ICU IN [facility]. PT LETHARGIC BUT EASILY AROUSABLE. REMAINS OX4.
--- NOTE | 2022-09-29 03:30 | NUR ---
VERBAL ORDERS FROM DR DUARTE RECEIVED. WILL ENTER AND NOTIFIED FORENSIC MATERIALS ENGINEER.
[2022-09-29 05:46] LABS: HEMATOCRIT 39.4 % (39.0-50.0); HEMOGLOBIN 13.4 g/dl (14.0-18.0)
[2022-09-29 06:04] LABS: CREATININE 1.9 mg/dL (0.7-1.3)
[2022-09-29 06:14] LABS: POTASSIUM 4.7 mmol/l (3.5-5.1)
[2022-09-29 06:34] LABS: BASO% 0.2 % (0-3); HEMOGLOBIN 13.9 g/dl (14.0-18.0); IMMATURE GRANULOCYTES 0.2 % (0.0-5.0); LYMPH% 7.8 % (15-41); MEAN CELL VOLUME 80.8 fL CALC (80.0-100.0); MEAN CORPUSCULAR HGB 28.1 pG CALC (26.0-32.0); MEAN CORPUSCULAR HGB CONC 34.8 g/dL CAL (32.0-36.0); MONO% 6.2 % (2-13); NEUT# 14.96 thou/uL (1.82-7.42); NEUT% 85.6 % (42-76); RED BLOOD COUNT 4.95 mill/uL (4.70-6.10); RED CELL DISTRI WIDTH 12.7 % (11.5-15.5)
--- NOTE | 2022-09-29 06:43 | NUR ---
REPORT GIVEN TO ONCOMING NURSE.
[2022-09-29 06:54] LABS: CREATININE 1.9 mg/dL (0.7-1.3); MAGNESIUM 2.1 mg/dL (1.6-2.3); POTASSIUM 4.7 mmol/l (3.5-5.1)
--- NOTE | 2022-09-29 07:05 | NUR ---
pt resting in bed with eyes closed; easily aroused; no apparent distress noted; assessment completed at this time; pt alert and oriented; admits to abd pressure rating 8/10; pt also with complaints of nausea; no vomiting noted at this time; will medicate; resp even and unlabored; lungs clear; skin color wnl; ra; hr reg; strong pulses; no edema noted; st on the monitor; abd soft with bs present; no bm noted per keno writer; pt voiding clear yellow urine without complication; urinal at bedside; right chest port accessed with ivf/ protonix gtt infusing; #20 to post lfa patent with insulin gtt per protocol; plan of care/ am meds/ pain meds and hourly glucose monitoring explained; call light within reach; will continue to monitor
--- NOTE | 2022-09-29 07:18 | NUR ---
pt noted with vomiting; appears coffee ground with lg chuncks of brown material; will collect sample; will continue to monitor
--- NOTE | 2022-09-29 08:03 | NUR ---
awake in bed; lab obtained via port as per protocol; glucose 273; insulin gtt continued; st on monitor; medicated for nausea; pt request "phenergan"; denies allergy; states "it works better than the other one"; meal held d/t n/v; will continue to monitor
--- NOTE | 2022-09-29 08:30 | NUR ---
Dr Arevalo present at bedside to assess pt and discuss plan of care
[2022-09-29 08:54] LABS: CREATININE 1.6 mg/dL (0.7-1.3); POTASSIUM 4.3 mmol/l (3.5-5.1)
--- NOTE | 2022-09-29 10:00 | NUR ---
awake in bed; no apparent distress noted; iv intact; insulin gtt cont; st on monitor; will continue to monitor
--- NOTE | 2022-09-29 11:58 | NUR ---
pt awake in bed eating lunch; no apparent distress noted; st on monitor; iv intact; insulin gtt to be discontinued; admits to pain relief; call light within reach; will continue to monitor
[2022-09-29 12:21] LABS: HEMATOCRIT 35.4 % (39.0-50.0); HEMOGLOBIN 12.3 g/dl (14.0-18.0)
--- NOTE | 2022-09-29 14:08 | NUR ---
awake in bed; offers no complaints; iv intact and patent; st on monitor; call light within reach; will continue to monitor
--- NOTE | 2022-09-29 16:12 | NUR ---
resting in bed with eyes closed; easily aroused; st on monitor; iv intact and patent; admits to pain relief; call light within reach; will continue to monitor
[2022-09-29 17:29] LABS: HEMATOCRIT 34.6 % (39.0-50.0); HEMOGLOBIN 11.7 g/dl (14.0-18.0)
--- NOTE | 2022-09-29 18:07 | NUR ---
awake in bed; st on monitor; iv intact and patent; call light within reach
--- NOTE | 2022-09-29 19:41 | NUR ---
REPORT RECEIVED FROM OFF GOING NURSE. ASSESSMENT COMPLETE. NO ACUTE DISTRESS NOTED. PATIENT WAS MEDICATED FOR PAIN AND NAUSEA. VSS. BED LOCKED IN LOW POSITION, CALL LIGHT WITHIN REACH. WILL CONTINUE TO MONITOR.
--- NOTE | 2022-09-29 22:00 | NUR ---
PATIENT LYING IN BED RESTING COMFORTABLY WITH NO ACUTE DISTRESS NOTED. VSS. BED LOCKED, IN LOW POSISITION, CALL LIGHT WITHIN REACH. WILL CONTINUE TO MONITOR.
[2022-09-30] VITALS (24 sets, daily range): BP systolic 116–148; BP diastolic 59–84
--- NOTE | 2022-09-30 | NUR ---
PATIENT LYING IN BED RESTING WITH NO ACUTE DISTRESS NOTED. WILL CONTINUE TO MONITOR.
[2022-09-30 00:22] LABS: HEMATOCRIT 32.7 % (39.0-50.0); HEMOGLOBIN 11.2 g/dl (14.0-18.0)
--- NOTE | 2022-09-30 02:00 | NUR ---
PATIENT LYING IN BED RESTING WITH NO ACUTE DISTRESS NOTED. WILL CONTINUE TO MONITOR.
--- NOTE | 2022-09-30 04:00 | NUR ---
PATIENT LYING IN BED SLEEPING WITH NO ACUTE DISTRESS NOTED. WILL CONTINUE TO MONITOR.
[2022-09-30 05:58] LABS: HEMATOCRIT 32.6 % (39.0-50.0); HEMOGLOBIN 11.1 g/dl (14.0-18.0); MEAN CELL VOLUME 81.9 fL CALC (80.0-100.0); MEAN CORPUSCULAR HGB 27.9 pG CALC (26.0-32.0); RED BLOOD COUNT 3.98 mill/uL (4.70-6.10); RED CELL DISTRI WIDTH 13.2 % (11.5-15.5)
--- NOTE | 2022-09-30 06:00 | NUR ---
PATIENT NOTED LYING IN BED WITH NO ACUTE DISTRESS NOTED AT THIS TIME. VSS. SINUS TACH ON MONITOR. BED LOCKED, IN LOW POSITION, CALL LIGHT WITHIN REACH.
[2022-09-30 06:08] LABS: HEMATOCRIT 32.7 % (39.0-50.0)
[2022-09-30 06:17] LABS: ALKALINE PHOSPHATASE 118 u/l (38-126); ANION GAP 10 (6-22 (CALC)); BILIRUBIN, TOTAL 0.4 mg/dL (0.2-1.3); BUN 19 mg/dL (9-20); BUN 20 mg/dL (9-20); BUN/CREATININE RATIO 16 (12-20 (CALC)); CHLORIDE 103 mmol/l (95-108); CREATININE 1.2 mg/dL (0.7-1.3); GFR FOR AFR.AMER. > 60 ML/MIN (>=60 (CALC)); GFR OTHER RACES > 60 ML/MIN (>=60 (CALC)); MAGNESIUM 1.7 mg/dL (1.6-2.3); POTASSIUM 3.7 mmol/l (3.5-5.1); POTASSIUM 3.9 mmol/l (3.5-5.1); SGOT/AST 15 u/l (17-59); SODIUM 137 mmol/l (137-146)
[2022-09-30 06:22] LABS: ALBUMIN 3.6 g/dL (3.2-5.0); ANION GAP 11 (6-22 (CALC)); CARBON DIOXIDE 27 mmol/l (22-30); CARBON DIOXIDE 28 mmol/l (22-30); TOTAL PROTEIN 6.1 g/dL (6.3-8.2)
--- NOTE | 2022-09-30 07:04 | NUR ---
REPORT GIVEN TO ONCOMING NURSE.
--- NOTE | 2022-09-30 07:35 | NUR ---
pt awake in bed; no apparent distress noted; assessment completed at this time; pt alert and oriented; admits to upper abd pain rating 8/10; no n/v noted at this time; resp even and unlabored; lungs clear; skin color; ra; hr reg; strong pulses; no edema noted; st on monitor; abd soft/ distended with bs present; no bm noted per writer editor; no urine to inspect at this time; #20 flushed and patent to lfa; right chest port accessed with ivf infusing without complication; no redness or edema noted at site; plan of care/ meds explained; call light within reach; will continue to monitor
--- NOTE | 2022-09-30 08:00 | NUR ---
collections agent light; complaints of nausea; emesis bag provided; will continue to monitor
--- NOTE | 2022-09-30 08:14 | NUR ---
Dr Arevalo present at bedside to assess pt and discuss plan of care
--- NOTE | 2022-09-30 08:31 | NUR ---
call placed to [facility] transfer center [place]; transfer information provided; facesheet faxed; will await return called
--- NOTE | 2022-09-30 09:01 | NUR ---
Dr Arevalo called in regards to pt receiving Brilinta and ASA; orders received to given
--- NOTE | 2022-09-30 10:11 | NUR ---
pt resting in bed; iv intact and patent; sr on monitor; po fluids provided; call light within reach; will continue to monitor
--- NOTE | 2022-09-30 10:52 | NUR ---
call received from [facility] transfer center [place]; bed assignment received; pt to transfer to med surg 5004- A under services of Dr Case; will call with ETA per transport
--- NOTE | 2022-09-30 11:07 | NUR ---
Positive transport called per check writer salesperson; information provided; transport will be right over
--- NOTE | 2022-09-30 11:29 | NUR ---
[facility] called with ETA
--- NOTE | 2022-09-30 11:54 | NUR ---
pt transferred to [facility] in stable condition with positive transport; belongings sent with pt;
--- NOTE | 2022-09-30 11:56 | NUR ---
report called to [facility] Harp RN
== END 2022-09-30 11:54 | disposition short-term general hospital (02) | DRG 638 ==
LOC: ED 22:58 → ICU 09-29 02:23
PROVIDERS: Family Medicine; ADMIT Internal Medicine; ATTEND Internal Medicine
DX: E11.10 Type 2 diabetes mellitus with ketoacidosis without coma (principal); D62 Acute posthemorrhagic anemia; F11.20 Opioid dependence, uncomplicated; K86.1 Other chronic pancreatitis; N17.9 Acute kidney failure, unspecified; K92.0 Hematemesis; K52.9 Noninfective gastroenteritis and colitis, unspecified; E86.0 Dehydration; I10 Essential (primary) hypertension; I25.10 Atherosclerotic heart disease of native coronary artery without angina pectoris; G89.4 Chronic pain syndrome; E11.43 Type 2 diabetes mellitus with diabetic autonomic (poly)neuropathy; K31.84 Gastroparesis; Z95.1 Presence of aortocoronary bypass graft; Z90.411 Acquired partial absence of pancreas; Z79.02 Long term (current) use of antithrombotics/antiplatelets; Z79.4 Long term (current) use of insulin; Z87.11 Personal history of peptic ulcer disease; Z79.82 Long term (current) use of aspirin; Z95.5 Presence of coronary angioplasty implant and graft; Z20.822 Contact with and (suspected) exposure to COVID-19
CPT/HCPCS: J1756; S0164

== ENCOUNTER 2022-10-07 17:18 | Observation (INO) | payer OTHER ==
[~2022-10-07] VITALS: Ht 175.3 cm; Wt 95.0 kg
[2022-10-07] VITALS (11 sets, daily range): BP systolic 101–170; BP diastolic 56–80
[2022-10-07 19:02] LABS: BASO% 0.6 % (0-3); HEMATOCRIT 32.7 % (39.0-50.0); HEMOGLOBIN 10.7 g/dl (14.0-18.0); IMMATURE GRANULOCYTES 1.9 % (0.0-5.0); LYMPH% 31.2 % (15-41); MEAN CELL VOLUME 84.5 fL CALC (80.0-100.0); MEAN CORPUSCULAR HGB 27.6 pG CALC (26.0-32.0); MEAN CORPUSCULAR HGB CONC 32.7 g/dL CAL (32.0-36.0); MONO% 14.4 % (2-13); NEUT# 2.96 thou/uL (1.82-7.42); NEUT% 47.9 % (42-76); RED BLOOD COUNT 3.87 mill/uL (4.70-6.10); RED CELL DISTRI WIDTH 13.4 % (11.5-15.5)
[2022-10-07 19:18] LABS: ALBUMIN 3.7 g/dL (3.2-5.0); ALKALINE PHOSPHATASE 115 u/l (38-126); ANION GAP 11 (6-22 (CALC)); BILIRUBIN, TOTAL 0.3 mg/dL (0.2-1.3); BUN 13 mg/dL (9-20); BUN/CREATININE RATIO 10 (12-20 (CALC)); CARBON DIOXIDE 27 mmol/l (22-30); CHLORIDE 104 mmol/l (95-108); CREATININE 1.4 mg/dL (0.7-1.3); GFR FOR AFR.AMER. > 60 ML/MIN (>=60 (CALC)); GFR OTHER RACES 53 ML/MIN (>=60 (CALC)); LIPASE < 10 u/l (23-300); POTASSIUM 4.3 mmol/l (3.5-5.1); SGOT/AST 37 u/l (17-59); SODIUM 138 mmol/l (137-146); TOTAL PROTEIN 6.5 g/dL (6.3-8.2)
[2022-10-07] MEDS ORDERED: PLAVIX75 MG PO (20:06)
[2022-10-07 21:18] LABS: URINE BILIRUBIN - DIPSTICK NEGATIVE (NEGATIVE); URINE BLOOD DIPSTICK NEGATIVE (NEGATIVE); URINE COLOR YELLOW; URINE GLUCOSE - DIPSTICK 250 mg/dL (NEGATIVE); URINE KETONE NEGATIVE (NEGATIVE); URINE LEUK ESTERASE NEGATIVE (NEGATIVE); URINE PROTEIN - DIPSTICK NEGATIVE (NEG-TRACE); URINE SPECIFIC GRAVITY 1.015; URINE UROBILINOGEN - DIPSTICK 0.2 E.U./dL (0.2)
[2022-10-07 21:19] LABS: URINE NITRITE - DIPSTICK NEGATIVE (Negative)
[2022-10-08] VITALS (8 sets, daily range): BP systolic 97–144; BP diastolic 53–80
[2022-10-09] VITALS (15 sets, daily range): BP systolic 100–123; BP diastolic 52–67
[2022-10-09 06:14] LABS: BASO% 0.8 % (0-3); EOS% 3.9 % (0-8); HEMATOCRIT 31.5 % (39.0-50.0); HEMOGLOBIN 9.8 g/dl (14.0-18.0); IMMATURE GRANULOCYTES 1.4 % (0.0-5.0); LYMPH% 29.9 % (15-41); MEAN CELL VOLUME 86.8 fL CALC (80.0-100.0); MEAN CORPUSCULAR HGB CONC 31.1 g/dL CAL (32.0-36.0); MONO% 14.9 % (2-13); NEUT# 3.5 thou/uL (1.82-7.42); NEUT% 49.1 % (42-76); RED BLOOD COUNT 3.63 mill/uL (4.70-6.10); RED CELL DISTRI WIDTH 13.3 % (11.5-15.5)
[2022-10-09 06:35] LABS: ALBUMIN 3.3 g/dL (3.2-5.0); ALKALINE PHOSPHATASE 86 u/l (38-126); ANION GAP 4 (6-22 (CALC)); BILIRUBIN, TOTAL 0.2 mg/dL (0.2-1.3); BUN 11 mg/dL (9-20); BUN/CREATININE RATIO 8 (12-20 (CALC)); CHLORIDE 107 mmol/l (95-108); CREATININE 1.4 mg/dL (0.7-1.3); GFR FOR AFR.AMER. > 60 ML/MIN (>=60 (CALC)); GFR OTHER RACES 53 ML/MIN (>=60 (CALC)); POTASSIUM 3.7 mmol/l (3.5-5.1); SGOT/AST 34 u/l (17-59); SODIUM 140 mmol/l (137-146); TOTAL PROTEIN 5.8 g/dL (6.3-8.2)
[2022-10-09 06:56] LABS: CARBON DIOXIDE 33 mmol/l (22-30)
[2022-10-10 04:18] VITALS: BP 129/60
[2022-10-10 04:20] VITALS: BP 129/60
[2022-10-10 06:33] VITALS: BP 125/56
[2022-10-10 07:44] VITALS: BP 125/56
[2022-10-10 11:17] VITALS: BP 118/62
[2022-10-10] MEDS ORDERED: PROTONIX40 M2 PO (11:44)
== END 2022-10-10 16:16 | disposition home or self-care (01) ==
LOC: ED 17:18 → ED-I 22:00 → ED 22:10 → MS2 22:11
PROVIDERS: Family Medicine; ADMIT Surgery; ATTEND Surgery
DX: K25.9 Gastric ulcer, unspecified as acute or chronic, without hemorrhage or perforation (principal); K59.00 Constipation, unspecified; K57.30 Diverticulosis of large intestine without perforation or abscess without bleeding; K63.5 Polyp of colon; K64.8 Other hemorrhoids; K44.9 Diaphragmatic hernia without obstruction or gangrene; D64.9 Anemia, unspecified; I10 Essential (primary) hypertension; E11.65 Type 2 diabetes mellitus with hyperglycemia; E11.43 Type 2 diabetes mellitus with diabetic autonomic (poly)neuropathy; K31.84 Gastroparesis; I25.10 Atherosclerotic heart disease of native coronary artery without angina pectoris; G89.4 Chronic pain syndrome; F11.20 Opioid dependence, uncomplicated; Z90.411 Acquired partial absence of pancreas; Z95.1 Presence of aortocoronary bypass graft; Z95.5 Presence of coronary angioplasty implant and graft; Z87.19 Personal history of other diseases of the digestive system; Z79.4 Long term (current) use of insulin; Z80.0 Family history of malignant neoplasm of digestive organs; Z20.822 Contact with and (suspected) exposure to COVID-19
CPT/HCPCS: G0378; S0164

== ENCOUNTER 2022-10-15 19:50 | Emergency (ER) | payer OTHER ==
[2022-10-15] VITALS (11 sets, daily range): BP systolic 108–149; BP diastolic 54–84
[~2022-10-15] VITALS: Ht 175.3 cm; Wt 85.0 kg
[~2022-10-15 19:50] MED LIST changes: +PLAVIX75 MG PO; +PROTONIX40 M2 PO
[2022-10-15 21:02] LABS: BASO% 0.5 % (0-3); EOS% 1.4 % (0-8); HEMATOCRIT 34.8 % (39.0-50.0); HEMOGLOBIN 11.6 g/dl (14.0-18.0); IMMATURE GRANULOCYTES 0.1 % (0.0-5.0); MEAN CELL VOLUME 82.7 fL CALC (80.0-100.0); MEAN CORPUSCULAR HGB 27.6 pG CALC (26.0-32.0); MEAN CORPUSCULAR HGB CONC 33.3 g/dL CAL (32.0-36.0); MONO% 7.3 % (2-13); NEUT# 5.51 thou/uL (1.82-7.42); NEUT% 69.7 % (42-76); RED BLOOD COUNT 4.21 mill/uL (4.70-6.10); RED CELL DISTRI WIDTH 13.2 % (11.5-15.5)
[2022-10-15 21:15] LABS: BUN 16 mg/dL (9-20); BUN/CREATININE RATIO 9 (12-20 (CALC)); CHLORIDE 101 mmol/l (95-108); CREATININE 1.9 mg/dL (0.7-1.3); GFR FOR AFR.AMER. 45 ML/MIN (>=60 (CALC)); GFR OTHER RACES 37 ML/MIN (>=60 (CALC)); LIPASE < 10 u/l (23-300); MAGNESIUM 1.6 mg/dL (1.6-2.3); POTASSIUM 4.1 mmol/l (3.5-5.1); SGOT/AST 32 u/l (17-59); SODIUM 135 mmol/l (137-146)
[2022-10-15 21:16] LABS: ALKALINE PHOSPHATASE 130 u/l (38-126); ANION GAP 18 (6-22 (CALC)); BILIRUBIN, TOTAL 0.4 mg/dL (0.2-1.3); CARBON DIOXIDE 20 mmol/l (22-30)
[2022-10-16 00:15] VITALS: BP 144/75
[2022-10-16 00:30] VITALS: BP 142/72
[2022-10-16 00:45] VITALS: BP 150/84
[2022-10-16] MEDS ORDERED: TRAMADOL HCL50 MG PO (00:58)
[2022-10-16] MEDS ORDERED: MIRALAX17 GM PO (00:59)
[2022-10-16 01:00] VITALS: BP 151/78
[2022-10-16 01:15] VITALS: BP 156/85
[2022-10-16 01:36] VITALS: BP 156/85
== END 2022-10-16 02:30 | disposition home or self-care (01) ==
LOC: ED 19:50
PROVIDERS: Family Medicine
DX: R10.13 Epigastric pain (principal); R10.12 Left upper quadrant pain; I10 Essential (primary) hypertension; E11.9 Type 2 diabetes mellitus without complications; Z79.4 Long term (current) use of insulin
CPT/HCPCS: S0164

== ENCOUNTER 2022-10-24 15:53 | Observation (INO) | payer OTHER ==
[2022-10-24] VITALS (15 sets, daily range): BP systolic 113–149; BP diastolic 65–84
[~2022-10-24] VITALS: Ht 175.3 cm; Wt 93.2 kg
[~2022-10-24 15:53] MED LIST changes: +MIRALAX17 GM PO
--- NOTE | 2022-10-24 15:53 | NUR ---
PATIENT ARRIVED TO ER VIA POV. PATIENT AWAKE, ALERT AND STABLE. NO DISTRESS NOTED. PHYSICIAN NOTIFIED.
[2022-10-24 16:47] LABS: BASO% 0.4 % (0-3); EOS% 3.2 % (0-8); HEMATOCRIT 37.5 % (39.0-50.0); HEMOGLOBIN 11.7 g/dl (14.0-18.0); IMMATURE GRANULOCYTES 0.3 % (0.0-5.0); LYMPH% 25.2 % (15-41); MEAN CORPUSCULAR HGB 27.4 pG CALC (26.0-32.0); MEAN CORPUSCULAR HGB CONC 31.2 g/dL CAL (32.0-36.0); MONO% 7.6 % (2-13); NEUT# 4.55 thou/uL (1.82-7.42); NEUT% 63.3 % (42-76); RED BLOOD COUNT 4.27 mill/uL (4.70-6.10); RED CELL DISTRI WIDTH 13.3 % (11.5-15.5)
--- NOTE | 2022-10-24 16:49 | NUR ---
XRAY AT BEDSIDE
[2022-10-24 16:55] LABS: MEAN CELL VOLUME 87.8 fL CALC (80.0-100.0)
[2022-10-24 17:01] LABS: ALBUMIN 3.8 g/dL (3.2-5.0); ALKALINE PHOSPHATASE 155 u/l (38-126); ANION GAP 17 (6-22 (CALC)); BUN 18 mg/dL (9-20); BUN/CREATININE RATIO 12 (12-20 (CALC)); CARBON DIOXIDE 18 mmol/l (22-30); CHLORIDE 101 mmol/l (95-108); CREATININE 1.6 mg/dL (0.7-1.3); GFR FOR AFR.AMER. 55 ML/MIN (>=60 (CALC)); GFR OTHER RACES 45 ML/MIN (>=60 (CALC)); LIPASE 33 u/l (23-300); POTASSIUM 4.8 mmol/l (3.5-5.1); SGOT/AST 39 u/l (17-59); SODIUM 131 mmol/l (137-146); TOTAL PROTEIN 7.4 g/dL (6.3-8.2)
[2022-10-24 17:24] LABS: URINE BILIRUBIN - DIPSTICK NEGATIVE (NEGATIVE); URINE BLOOD DIPSTICK NEGATIVE (NEGATIVE); URINE COLOR YELLOW; URINE GLUCOSE - DIPSTICK >=1000 mg/dL (NEGATIVE); URINE KETONE NEGATIVE (NEGATIVE); URINE LEUK ESTERASE NEGATIVE (NEGATIVE); URINE PROTEIN - DIPSTICK NEGATIVE (NEG-TRACE); URINE UROBILINOGEN - DIPSTICK 0.2 E.U./dL (0.2)
[2022-10-24 17:25] LABS: URINE NITRITE - DIPSTICK NEGATIVE (Negative)
--- NOTE | 2022-10-24 17:31 | NUR ---
PT TAKEN TO CT SCAN
--- NOTE | 2022-10-24 17:43 | NUR ---
PT RETURNED FROM CT SCAN
--- NOTE | 2022-10-24 18:46 | NUR ---
PT MEDICATED PER eMAR
--- NOTE | 2022-10-24 20:50 | NUR ---
REPORT RECIEVED FROM ER. PT ARRIVED TO [facility] ROOM 269. PT A/OX3. RESPIRATIONS EVEN AND UNLABORED ON ROOM AIR. LUNG SOUNDS CLEAR. HEART RHYTHM NORMAL. BOWEL SOUNDS ACTIVE, LBM 10/24/22. REPORTS LOOSE STOOLS. RIGHT CHEST PORT FLUSHED AND INFUSING WITH IVF PER ORDER. SKIN INTACT. PT STATES ABD PAIN IS NOW 3/10. ALLERGIES NOTED, ALLERGY BAND AND FALL RISK BAND APPLIED. PT STATES HE HAS BEEN HAVING TROUBLE KEEP HIS GLUCOSE UNDER CONTROL DUE TO CHANGING MEDICATIONS. PT ORIENTED TO ROOM AND CALL [facility]. ALL SAFETY PRECAUTIONS ARE IN PLACE WITH CALL LIGHT IN REACH.
--- NOTE | 2022-10-24 20:51 | NUR ---
CALLED AND GAVE PT REPORT TO ESCOBAR
[2022-10-24 20:57] LABS: ANION GAP 10 (6-22 (CALC)); BUN 18 mg/dL (9-20); BUN/CREATININE RATIO 13 (12-20 (CALC)); CHLORIDE 103 mmol/l (95-108); CREATININE 1.4 mg/dL (0.7-1.3); GFR FOR AFR.AMER. > 60 ML/MIN (>=60 (CALC)); GFR OTHER RACES 53 ML/MIN (>=60 (CALC)); POTASSIUM 4.5 mmol/l (3.5-5.1); SODIUM 135 mmol/l (137-146)
[2022-10-24 20:58] LABS: CARBON DIOXIDE 27 mmol/l (22-30)
--- NOTE | 2022-10-24 23:16 | NUR ---
PT C/O OF ABD PAIN, ORDERS RECIEVED. CLARIFICATION ON ISOSORBIDE AND TRAMADOL. PT REPORTS NO REACTIONS.
--- NOTE | 2022-10-25 00:03 | NUR ---
PT MEDICATED FOR PAIN. RESPIRATIONS EVEN AND UNLABORED. TELE MONITORING IN PLACE. RIGHT CHEST PORT INFUSING PER ORDER. PT DENIES OF ANY NEEDS. ALL SAFETY PRECAUTIONS ARE IN PLACE WITH CALL LIGHT IN REACH
[2022-10-25 00:05] VITALS: BP 102/61
--- NOTE | 2022-10-25 04:12 | NUR ---
PT SLEEPING IN SEMI FOWLERS POSITION. RESPIRATIONS EVEN AND UNLABORED ON ROOM AIR. IVF INFUSING PER ORDER. TELE IN PLACE. NO S/S OF DISTRESS. ALL SAFETY PRECAUTIONS IN PLACE WITH CALL LIGHT IN REACH.
[2022-10-25 04:35] VITALS: BP 96/59
[2022-10-25 05:27] LABS: BASO% 0.5 % (0-3); EOS% 6.4 % (0-8); HEMOGLOBIN 10.1 g/dl (14.0-18.0); IMMATURE GRANULOCYTES 0.3 % (0.0-5.0); LYMPH% 21.6 % (15-41); MEAN CELL VOLUME 84.7 fL CALC (80.0-100.0); MEAN CORPUSCULAR HGB 27.7 pG CALC (26.0-32.0); MEAN CORPUSCULAR HGB CONC 32.7 g/dL CAL (32.0-36.0); MONO% 9.2 % (2-13); NEUT# 3.97 thou/uL (1.82-7.42); RED BLOOD COUNT 3.65 mill/uL (4.70-6.10); RED CELL DISTRI WIDTH 13.4 % (11.5-15.5)
[2022-10-25 05:42] LABS: HEMATOCRIT 30.9 % (39.0-50.0)
[2022-10-25 05:56] LABS: ALBUMIN 3.4 g/dL (3.2-5.0); ALKALINE PHOSPHATASE 99 u/l (38-126); ANION GAP 9 (6-22 (CALC)); BILIRUBIN, TOTAL 0.6 mg/dL (0.2-1.3); BUN 15 mg/dL (9-20); BUN/CREATININE RATIO 12 (12-20 (CALC)); CARBON DIOXIDE 28 mmol/l (22-30); CHLORIDE 107 mmol/l (95-108); CREATININE 1.3 mg/dL (0.7-1.3); GFR FOR AFR.AMER. > 60 ML/MIN (>=60 (CALC)); GFR OTHER RACES 58 ML/MIN (>=60 (CALC)); MAGNESIUM 1.9 mg/dL (1.6-2.3); POTASSIUM 3.6 mmol/l (3.5-5.1); SGOT/AST 18 u/l (17-59); SODIUM 141 mmol/l (137-146)
[2022-10-25 06:05] VITALS: BP 123/75
--- NOTE | 2022-10-25 08:29 | NUR ---
BEDSIDE SHIFT REPORT, PT AWAKE ALERT AND ORIENTED RESTING IN BED, C/O ABD PAIN @ 4/10 AND STATES MEDS ARE EFFECTIVE IN GIVING RELIEF, IVF 0.9 NS INFUSING @ 100 ML/HE TO SITE IN RIGHT CHEST PORT, TELE MONITOR IN PLACE, CALL HUBER IN REACH AND BED LOCKED IN LOWEST POSITION.
[2022-10-25 09:27] VITALS: BP 110/50
[2022-10-25] MEDS ORDERED: HUMALOG KW100 UNIT/M SC (11:22)
[2022-10-25 11:39] VITALS: BP 115/57
--- NOTE | 2022-10-25 12:00 | NUR ---
STABLE, NO NEW COMPLAINS, PAIN CONTROLLED WITH ANALGESICS.
--- NOTE | 2022-10-25 16:22 | NUR ---
Discharge instructions given. Patient verbalizes understanding of same. Discharged in good condition via Wheelchair to Home with family. All belongings sent with pt.
== END 2022-10-25 16:13 | disposition home or self-care (01) ==
LOC: ED 15:53 → ED-I 18:40 → ED 19:09 → MS2 19:10
PROVIDERS: Family Medicine; Nurse Practitioner; ADMIT Internal Medicine; ATTEND Internal Medicine
DX: E11.00 Type 2 diabetes mellitus with hyperosmolarity without nonketotic hyperglycemic-hyperosmolar coma (NKHHC) (principal); E11.65 Type 2 diabetes mellitus with hyperglycemia; I12.9 Hypertensive chronic kidney disease with stage 1 through stage 4 chronic kidney disease, or unspecified chronic kidney disease; E11.22 Type 2 diabetes mellitus with diabetic chronic kidney disease; N18.9 Chronic kidney disease, unspecified; I25.10 Atherosclerotic heart disease of native coronary artery without angina pectoris; Z79.4 Long term (current) use of insulin; F11.20 Opioid dependence, uncomplicated; G89.4 Chronic pain syndrome; K21.9 Gastro-esophageal reflux disease without esophagitis; Z87.11 Personal history of peptic ulcer disease
CPT/HCPCS: G0378

== ENCOUNTER 2022-11-04 21:42 | Emergency (ER) | payer OTHER ==
[2022-11-04] VITALS (7 sets, daily range): BP systolic 130–175; BP diastolic 71–92
[~2022-11-04] VITALS: Ht 175.3 cm; Wt 100.0 kg
[~2022-11-04 21:42] MED LIST changes: +HUMALOG KW100 UNIT/M SC
[2022-11-04 22:21] LABS: EOS% 4.5 % (0-8); HEMATOCRIT 35.4 % (39.0-50.0); HEMOGLOBIN 11.5 g/dl (14.0-18.0); IMMATURE GRANULOCYTES 0.2 % (0.0-5.0); LYMPH% 31.9 % (15-41); MEAN CELL VOLUME 84.5 fL CALC (80.0-100.0); MEAN CORPUSCULAR HGB 27.4 pG CALC (26.0-32.0); MEAN CORPUSCULAR HGB CONC 32.5 g/dL CAL (32.0-36.0); MONO% 9.8 % (2-13); NEUT# 3.05 thou/uL (1.82-7.42); NEUT% 52.6 % (42-76); RED BLOOD COUNT 4.19 mill/uL (4.70-6.10)
[2022-11-04 22:31] LABS: ALBUMIN 3.5 g/dL (3.2-5.0); ALKALINE PHOSPHATASE 111 u/l (38-126); ANION GAP 11 (6-22 (CALC)); BILIRUBIN, TOTAL 0.5 mg/dL (0.2-1.3); BUN 21 mg/dL (9-20); BUN/CREATININE RATIO 15 (12-20 (CALC)); CARBON DIOXIDE 25 mmol/l (22-30); CHLORIDE 108 mmol/l (95-108); CREATININE 1.4 mg/dL (0.7-1.3); GFR FOR AFR.AMER. > 60 ML/MIN (>=60 (CALC)); GFR OTHER RACES 53 ML/MIN (>=60 (CALC)); POTASSIUM 3.7 mmol/l (3.5-5.1); SGOT/AST 37 u/l (17-59); SODIUM 140 mmol/l (137-146); TOTAL PROTEIN 6.3 g/dL (6.3-8.2)
[2022-11-05] VITALS: BP 128/73
[2022-11-05 00:10] LABS: URINE BILIRUBIN - DIPSTICK NEGATIVE (NEGATIVE); URINE BLOOD DIPSTICK NEGATIVE (NEGATIVE); URINE COLOR YELLOW; URINE GLUCOSE - DIPSTICK 500 mg/dL (NEGATIVE); URINE KETONE NEGATIVE (NEGATIVE); URINE LEUK ESTERASE NEGATIVE (NEGATIVE); URINE NITRITE - DIPSTICK NEGATIVE (Negative); URINE PROTEIN - DIPSTICK NEGATIVE (NEG-TRACE); URINE SPECIFIC GRAVITY 1.015; URINE UROBILINOGEN - DIPSTICK 0.2 E.U./dL (0.2)
[2022-11-05 00:16] VITALS: BP 127/67
== END 2022-11-05 00:13 | disposition home or self-care (01) ==
LOC: ED 21:42
PROVIDERS: Emergency Medicine
DX: R07.89 Other chest pain (principal); S01.112A Laceration without foreign body of left eyelid and periocular area, initial encounter; I10 Essential (primary) hypertension; E11.9 Type 2 diabetes mellitus without complications; W18.39XA Other fall on same level, initial encounter; Y92.002 Bathroom of unspecified non-institutional (private) residence as the place of occurrence of the external cause; Z79.4 Long term (current) use of insulin

== ENCOUNTER 2022-12-12 12:51 | Emergency (ER) | payer OTHER ==
[~2022-12-12] VITALS: Ht 175.3 cm; Wt 100.0 kg
[2022-12-12] VITALS (7 sets, daily range): BP systolic 86–158; BP diastolic 19–94
[~2022-12-12 12:51] MED LIST changes: +ONDANSETRON4 MG PO
[2022-12-12 13:50] LABS: URINE BILIRUBIN - DIPSTICK Negative (NEGATIVE); URINE BLOOD DIPSTICK Large (NEGATIVE); URINE GLUCOSE - DIPSTICK 500 mg/dL (NEGATIVE); URINE KETONE Trace mg/dL (NEGATIVE); URINE LEUK ESTERASE Negative (NEGATIVE); URINE NITRITE - DIPSTICK Negative (Negative); URINE PROTEIN - DIPSTICK 30 mg/dL (NEG-TRACE); URINE UROBILINOGEN - DIPSTICK 0.2 E.U./dL (0.2)
[2022-12-12 13:53] LABS: BASO% 0.6 % (0-3); EOS% 3.8 % (0-8); IMMATURE GRANULOCYTES 0.6 % (0.0-5.0); LYMPH% 21.7 % (15-41); MEAN CELL VOLUME 81.1 fL CALC (80.0-100.0); MEAN CORPUSCULAR HGB 27.2 pG CALC (26.0-32.0); MEAN CORPUSCULAR HGB CONC 33.5 g/dL CAL (32.0-36.0); MONO% 8.9 % (2-13); NEUT# 7.98 thou/uL (1.82-7.42); NEUT% 64.4 % (42-76); RED BLOOD COUNT 5.19 mill/uL (4.70-6.10); RED CELL DISTRI WIDTH 12.2 % (11.5-15.5)
[2022-12-12 13:57] LABS: URINE COLOR Yellow
[2022-12-12 13:59] LABS: ALBUMIN 4.9 g/dL (3.2-5.0); BILIRUBIN, TOTAL 0.9 mg/dL (0.2-1.3); CREATININE 2.5 mg/dL (0.7-1.3); POTASSIUM 4.6 mmol/l (3.5-5.1); TOTAL PROTEIN 8.8 g/dL (6.3-8.2)
[2022-12-12 14:00] LABS: URINE RBC >100 RBC/hpf (0-5)
[2022-12-12 14:07] LABS: HEMATOCRIT 42.1 % (39.0-50.0); HEMOGLOBIN 14.1 g/dl (14.0-18.0)
[2022-12-12] MEDS ORDERED: OMNI-PAC300 MG PO ×2 (15:34→15:40)
[2022-12-12] MEDS ORDERED: TRAMADOL HYDROC50 M1 PO (15:34)
== END 2022-12-12 16:18 | disposition home or self-care (01) ==
LOC: ED 12:51
PROVIDERS: Family Medicine
DX: R31.9 Hematuria, unspecified (principal); I10 Essential (primary) hypertension; E11.9 Type 2 diabetes mellitus without complications; E66.9 Obesity, unspecified; Z79.4 Long term (current) use of insulin

== ENCOUNTER 2023-04-30 02:56 | Emergency (ER) | payer OTHER ==
[~2023-04-30] VITALS: Ht 175.3 cm; Wt 97.5 kg
[~2023-04-30 02:56] MED LIST changes: +DULCOLAX5 MG PO; +FENOFIBRATE160 MG PO; +OMNI-PAC300 MG PO; +RANOLAZINE ER500 MG PO; +TRAMADOL HYDROC50 M1 PO
[2023-04-30 04:34] VITALS: BP 159/87
[2023-04-30 07:41] LABS: ANION GAP 20 (6-22 (CALC)); BILIRUBIN, TOTAL 0.6 mg/dL (0.2-1.3); BUN 22 mg/dL (9-20); BUN/CREATININE RATIO 18 (12-20 (CALC)); CARBON DIOXIDE 17 mmol/l (22-30); CHLORIDE 97 mmol/l (95-108); CREATININE 1.2 mg/dL (0.7-1.3); GFR FOR AFR.AMER. > 60 ML/MIN (>=60 (CALC)); GFR OTHER RACES > 60 ML/MIN (>=60 (CALC)); POTASSIUM 4.3 mmol/l (3.5-5.1); SODIUM 130 mmol/l (137-146)
[2023-04-30 07:42] LABS: ALBUMIN 3.4 g/dL (3.2-5.0); ALKALINE PHOSPHATASE 145 u/l (38-126); AMYLASE 35 u/l (30-110); C-REACTIVE PROTEIN 1.1 mg/dL (0-0.9); LIPASE 55 u/l (23-300); SGOT/AST 26 u/l (17-59); TOTAL PROTEIN 6.2 g/dL (6.3-8.2)
[2023-04-30 07:47] LABS: HEMATOCRIT 33.1 % (39.0-50.0); HEMOGLOBIN 10.9 g/dl (14.0-18.0); MEAN CELL VOLUME 83.6 fL CALC (80.0-100.0); MEAN CORPUSCULAR HGB 27.5 pG CALC (26.0-32.0); MEAN CORPUSCULAR HGB CONC 32.9 g/dL CAL (32.0-36.0); RED BLOOD COUNT 3.96 mill/uL (4.70-6.10); RED CELL DISTRI WIDTH 12.1 % (11.5-15.5)
== END 2023-04-30 03:43 | disposition left against medical advice (07) ==
LOC: ED 02:56
PROVIDERS: Family Medicine
DX: R07.9 Chest pain, unspecified (principal); R10.9 Unspecified abdominal pain; I10 Essential (primary) hypertension; I25.10 Atherosclerotic heart disease of native coronary artery without angina pectoris; E11.9 Type 2 diabetes mellitus without complications; Z79.4 Long term (current) use of insulin; Z53.29 Procedure and treatment not carried out because of patient's decision for other reasons; Z90.411 Acquired partial absence of pancreas; Z95.1 Presence of aortocoronary bypass graft; Z95.5 Presence of coronary angioplasty implant and graft
CPT/HCPCS: S0164

== ENCOUNTER 2023-05-30 16:28 | Emergency (ER) | payer OTHER | END 2023-05-30 19:08 | disposition left against medical advice (07) | LOC: ED 16:28 | DX: Z53.21 Procedure and treatment not carried out due to patient leaving prior to being seen by health care provider (principal) ==

== ENCOUNTER 2023-06-02 11:43 | Inpatient (IN) | payer OTHER ==
[2023-06-02] VITALS (25 sets, daily range): BP systolic 113–151; BP diastolic 47–85
[~2023-06-02] VITALS: Ht 175.3 cm; Wt 97.0 kg
[2023-06-02 12:33] LABS: BASO% 0.5 % (0-3); IMMATURE GRANULOCYTES 1.9 % (0.0-5.0); LYMPH% 20.8 % (15-41); MEAN CORPUSCULAR HGB 27.4 pG CALC (26.0-32.0); MEAN CORPUSCULAR HGB CONC 30.8 g/dL CAL (32.0-36.0); MONO% 8.1 % (2-13); NEUT# 7.53 thou/uL (1.82-7.42); NEUT% 65.7 % (42-76); RED BLOOD COUNT 4.85 mill/uL (4.70-6.10)
[2023-06-02 12:48] LABS: ALKALINE PHOSPHATASE 188 u/l (38-126); BILIRUBIN, TOTAL 0.7 mg/dL (0.2-1.3); BUN 26 mg/dL (9-20); BUN/CREATININE RATIO 13 (12-20 (CALC)); CHLORIDE 94 mmol/l (95-108); GFR FOR AFR.AMER. 42 ML/MIN (>=60 (CALC)); GFR OTHER RACES 35 ML/MIN (>=60 (CALC)); LIPASE 45 u/l (23-300); SGOT/AST 18 u/l (17-59); SODIUM 135 mmol/l (137-146)
[2023-06-02] MEDS ORDERED: ONDANSETRON HCl 4 MG/2 ML SDV IV ONE ×2 (12:50→14:10)
[2023-06-02 12:51] LABS: HEMATOCRIT 43.2 % (39.0-50.0); HEMOGLOBIN 13.3 g/dl (14.0-18.0); MEAN CELL VOLUME 89.1 fL CALC (80.0-100.0)
[2023-06-02 12:54] LABS: ALBUMIN 4.6 g/dL (3.2-5.0); ANION GAP 35 (6-22 (CALC)); CARBON DIOXIDE 11 mmol/l (22-30); POTASSIUM 5.2 mmol/l (3.5-5.1); TOTAL PROTEIN 8.3 g/dL (6.3-8.2)
[2023-06-02] MEDS ORDERED: MEPERIDINE HCL 50 MG/ML IV ONE (14:10)
[2023-06-02] MEDS ORDERED: INSULIN REGULAR (HUMAN) 100 UNIT/ML INJ IV ONE (15:10)
[2023-06-02] MEDS ORDERED: SODIUM CHLORIDE 0.9% 1,000 ML IV ONE ×2 (15:10→16:50)
[2023-06-02] MEDS ORDERED: INSULIN REGULAR (HUMAN) IN SOD 100 ML IV ONE (15:30)
[2023-06-02 16:47] LABS: URINE BLOOD DIPSTICK Negative (NEGATIVE); URINE GLUCOSE - DIPSTICK 500 mg/dL (NEGATIVE); URINE KETONE >=160 mg/dL (NEGATIVE); URINE LEUK ESTERASE Negative (NEGATIVE); URINE NITRITE - DIPSTICK Negative (Negative); URINE PH 5.5 (4.5-8.0); URINE PROTEIN - DIPSTICK Negative (NEG-TRACE); URINE SPECIFIC GRAVITY 1.015; URINE UROBILINOGEN - DIPSTICK 0.2 E.U./dL (0.2)
[2023-06-02 16:54] LABS: URINE COLOR Yellow
[2023-06-02] MEDS ORDERED: MAGNESIUM HYDROXIDE 30 ML UDC PO PRN (17:50)
[2023-06-02] MEDS ORDERED: ONDANSETRON HCl 4 MG/2 ML SDV IV PRN (17:50)
[2023-06-02] MEDS ORDERED: POTASSIUM CHLORIDE 40 MEQ in SODIUM CHLORIDE 0.45% 1,000 ML IV PRN (17:50)
[2023-06-02] MEDS ORDERED: D5 1/2 NaCL W/KCL 40MEQ 1,000 ML IV PRN (17:50)
[2023-06-02] MEDS ORDERED: DEXTROSE 5% w/NACL 0.45 1,000 ML IV PRN (17:50)
[2023-06-02] MEDS ORDERED: INSULIN REGULAR (HUMAN) IN SOD 100 ML IV PRN (17:50)
[2023-06-02] MEDS ORDERED: ACETAMINOPHEN 325 MG/TAB PO PRN (17:50)
[2023-06-02] MEDS ORDERED: SODIUM CHLORIDE 0.9% 1,000 ML IV PRN (17:50)
[2023-06-02] MEDS ORDERED: SODIUM CHLORIDE 0.45% 1,000 ML IV PRN (17:50)
[2023-06-02] MEDS ORDERED: OSELTAMIVIR PHOSPHATE 75 MG/TAB CAP PO ONE (17:55)
[2023-06-02 18:34] LABS: CREATININE 1.9 mg/dL (0.7-1.3); POTASSIUM 4.5 mmol/l (3.5-5.1)
[2023-06-02] MEDS ORDERED: MEPERIDINE HCL 50 MG/ML IV PRN (19:30)
[2023-06-02] MEDS ORDERED: HEPARIN SODIUM FLUSH (PORCINE) 100 UNIT/ML 5 ML SYR IV PRN (19:45)
[2023-06-02] MEDS ORDERED: SODIUM CHLORIDE 0.9% 10 ML SYR IV PRN (19:45)
[2023-06-02] MEDS ORDERED: Pantoprazole Sodium 40 MG VIAL (Protonix) IV SCH (20:00)
[2023-06-02] MEDS ORDERED: ENOXAPARIN SODIUM 40 MG/0.4 ML SYR SC SCH (21:00)
[2023-06-02] MEDS ORDERED: SODIUM CHLORIDE 0.9% 10 ML SYR IV SCH (22:00)
[2023-06-02 22:54] LABS: CREATININE 1.8 mg/dL (0.7-1.3)
[2023-06-03] VITALS (53 sets, daily range): BP systolic 121–165; BP diastolic 58–93
[2023-06-03 02:39] LABS: CREATININE 1.6 mg/dL (0.7-1.3); POTASSIUM 4.4 mmol/l (3.5-5.1)
[2023-06-03] MEDS ORDERED: DEXTROSE 250 ML IV PRN ×3 (06:00→06:05)
[2023-06-03 06:40] LABS: BASO% 0.3 % (0-3); EOS% 1.9 % (0-8); LYMPH% 18.9 % (15-41); MEAN CELL VOLUME 83.8 fL CALC (80.0-100.0); MEAN CORPUSCULAR HGB 27.5 pG CALC (26.0-32.0); MEAN CORPUSCULAR HGB CONC 32.8 g/dL CAL (32.0-36.0); MONO% 11.2 % (2-13); NEUT# 6.2 thou/uL (1.82-7.42); NEUT% 66.7 % (42-76); RED BLOOD COUNT 3.96 mill/uL (4.70-6.10); RED CELL DISTRI WIDTH 12.3 % (11.5-15.5)
[2023-06-03 06:44] LABS: HEMATOCRIT 33.2 % (39.0-50.0); HEMOGLOBIN 10.9 g/dl (14.0-18.0)
[2023-06-03 07:16] LABS: CREATININE 1.5 mg/dL (0.7-1.3); MAGNESIUM 2.2 mg/dL (1.6-2.3)
[2023-06-03 07:17] LABS: CHOLESTEROL HDL RATIO 7.6 (<4.4 (CALC))
[2023-06-03] MEDS ORDERED: OSELTAMIVIR PHOSPHATE 30 MG/CAP PO SCH (09:00)
[2023-06-03] MEDS ORDERED: INSULIN DETEMIR 100 UNITS/ML SC SCH ×2 (09:00→21:00)
[2023-06-03] MEDS ORDERED: SODIUM CHLORIDE 0.9% 1,000 ML IV PRN (10:00)
[2023-06-03] MEDS ORDERED: INSULIN LISPRO 100 UNITS/ML ML SC SCH (11:00)
[2023-06-03] MEDS ORDERED: PANCREATIC ENZYMES 12 000 UNITS LIPASE PO SCH (11:30)
[2023-06-04] VITALS (25 sets, daily range): BP systolic 121–154; BP diastolic 69–91
[2023-06-04 05:45] LABS: BASO% 0.6 % (0-3); EOS% 4.5 % (0-8); HEMATOCRIT 32.1 % (39.0-50.0); HEMOGLOBIN 10.7 g/dl (14.0-18.0); IMMATURE GRANULOCYTES 1.3 % (0.0-5.0); LYMPH% 26.9 % (15-41); MEAN CELL VOLUME 85.4 fL CALC (80.0-100.0); MEAN CORPUSCULAR HGB 28.5 pG CALC (26.0-32.0); MEAN CORPUSCULAR HGB CONC 33.3 g/dL CAL (32.0-36.0); NEUT# 4.08 thou/uL (1.82-7.42); NEUT% 56.7 % (42-76); RED BLOOD COUNT 3.76 mill/uL (4.70-6.10); RED CELL DISTRI WIDTH 12.1 % (11.5-15.5)
[2023-06-04 06:12] LABS: ALKALINE PHOSPHATASE 134 u/l (38-126); BUN 10 mg/dL (9-20); BUN/CREATININE RATIO 8 (12-20 (CALC)); CHLORIDE 107 mmol/l (95-108); CREATININE 1.3 mg/dL (0.7-1.3); GFR FOR AFR.AMER. > 60 ML/MIN (>=60 (CALC)); GFR OTHER RACES 57 ML/MIN (>=60 (CALC)); MAGNESIUM 2.1 mg/dL (1.6-2.3); POTASSIUM 3.7 mmol/l (3.5-5.1); SGOT/AST 13 u/l (17-59); SODIUM 143 mmol/l (137-146)
[2023-06-04 06:14] LABS: ALBUMIN 3.3 g/dL (3.2-5.0); ANION GAP 7 (6-22 (CALC)); BILIRUBIN, TOTAL 0.2 mg/dL (0.2-1.3); CARBON DIOXIDE 33 mmol/l (22-30); TOTAL PROTEIN 6.1 g/dL (6.3-8.2)
[2023-06-04] MEDS ORDERED: PREGABALIN 75 MG/CAP PO SCH (09:00)
[2023-06-04] MEDS ORDERED: ISOSORBIDE MONONITRATE 30 MG TAB PO SCH (09:00)
[2023-06-04] MEDS ORDERED: CLOPIDOGREL BISULFATE 75 MG/TAB TAB PO SCH (09:00)
[2023-06-04] MEDS ORDERED: MEPERIDINE HCL 50 MG/ML IV PRN (13:10)
[2023-06-04] MEDS ORDERED: TAM75CAP PO (13:18)
[2023-06-04] MEDS ORDERED: OSELTAMIVIR PHOSPHATE 75 MG/TAB CAP PO SCH (21:00)
[2023-06-04] MEDS ORDERED: PANTOPRAZOLE SODIUM Sesquihydr 40 MG/TAB PO SCH (21:00)
[2023-06-04] MEDS ORDERED: ATORVASTATIN CALCIUM 40 MG/TAB PO SCH (21:00)
[2023-06-05] VITALS (18 sets, daily range): BP systolic 129–172; BP diastolic 66–94
[2023-06-05 06:16] LABS: BASO% 0.3 % (0-3); EOS% 2.5 % (0-8); IMMATURE GRANULOCYTES 0.7 % (0.0-5.0); LYMPH% 10.7 % (15-41); MEAN CORPUSCULAR HGB 28.7 pG CALC (26.0-32.0); MEAN CORPUSCULAR HGB CONC 33.3 g/dL CAL (32.0-36.0); NEUT# 7.56 thou/uL (1.82-7.42); NEUT% 75.8 % (42-76); RED BLOOD COUNT 3.49 mill/uL (4.70-6.10)
[2023-06-05 06:41] LABS: ALBUMIN 3.2 g/dL (3.2-5.0); ALKALINE PHOSPHATASE 128 u/l (38-126); ANION GAP 6 (6-22 (CALC)); BILIRUBIN, TOTAL 0.2 mg/dL (0.2-1.3); BUN 6 mg/dL (9-20); BUN/CREATININE RATIO 6 (12-20 (CALC)); CARBON DIOXIDE 31 mmol/l (22-30); CHLORIDE 105 mmol/l (95-108); CREATININE 1.1 mg/dL (0.7-1.3); GFR FOR AFR.AMER. > 60 ML/MIN (>=60 (CALC)); GFR OTHER RACES > 60 ML/MIN (>=60 (CALC)); MAGNESIUM 1.7 mg/dL (1.6-2.3); POTASSIUM 3.6 mmol/l (3.5-5.1); SGOT/AST 16 u/l (17-59); SODIUM 138 mmol/l (137-146); TOTAL PROTEIN 5.9 g/dL (6.3-8.2)
[2023-06-05] MEDS ORDERED: MEPERIDINE HCL50 MG PO (08:41)
[2023-06-05] MEDS ORDERED: ONDANSETRON4 MG PO (08:41)
== END 2023-06-05 15:30 | DRG 638 ==
LOC: ED 11:43 → ED-I 17:32 → ED 17:45 → ICU 17:46 → ED-I 17:46 → ICU 06-03 07:25
PROVIDERS: Family Medicine; ADMIT Student in an Organized Health Care Education/Training Program; ATTEND Student in an Organized Health Care Education/Training Program
DX: E11.10 Type 2 diabetes mellitus with ketoacidosis without coma (principal); F11.20 Opioid dependence, uncomplicated; I13.0 Hypertensive heart and chronic kidney disease with heart failure and stage 1 through stage 4 chronic kidney disease, or unspecified chronic kidney disease; N17.9 Acute kidney failure, unspecified; K86.1 Other chronic pancreatitis; E86.0 Dehydration; E11.22 Type 2 diabetes mellitus with diabetic chronic kidney disease; N18.9 Chronic kidney disease, unspecified; I50.9 Heart failure, unspecified; J10.1 Influenza due to other identified influenza virus with other respiratory manifestations; R09.02 Hypoxemia; E11.43 Type 2 diabetes mellitus with diabetic autonomic (poly)neuropathy; K31.84 Gastroparesis; I25.10 Atherosclerotic heart disease of native coronary artery without angina pectoris; G89.4 Chronic pain syndrome; Z95.5 Presence of coronary angioplasty implant and graft; Z79.4 Long term (current) use of insulin; Z95.1 Presence of aortocoronary bypass graft; Z90.411 Acquired partial absence of pancreas; Z95.828 Presence of other vascular implants and grafts; Z20.822 Contact with and (suspected) exposure to COVID-19
CPT/HCPCS: J1650; S0164

== ENCOUNTER 2023-10-18 15:28 | Observation (INO) | payer OTHER ==
[~2023-10-18] VITALS: Ht 175.3 cm; Wt 100.2 kg
[2023-10-18] VITALS (15 sets, daily range): BP systolic 133–159; BP diastolic 71–87
[~2023-10-18 15:28] MED LIST changes: +LYRICA150 M1; +MEPERIDINE HCL50 MG PO; +MEPERIDINE HYDR50 MG PO; +PROMETHAZINE HY25 M1 PO; +TAM75CAP PO
--- NOTE | 2023-10-18 15:28 | NUR ---
PT TO ER ROOM 8 VIA EMS.
[2023-10-18] MEDS ORDERED: ONDANSETRON HCl 4 MG/2 ML SDV IV ONE (15:45)
[2023-10-18] MEDS ORDERED: SODIUM CHLORIDE 0.9% 1,000 ML IV ONE (15:50)
[2023-10-18 16:32] LABS: BASO% 0.5 % (0-3); EOS% 2.7 % (0-8); HEMOGLOBIN 11.6 g/dl (14.0-18.0); IMMATURE GRANULOCYTES 0.5 % (0.0-5.0); LYMPH% 20.7 % (15-41); MEAN CELL VOLUME 85.3 fL CALC (80.0-100.0); MEAN CORPUSCULAR HGB 27.5 pG CALC (26.0-32.0); MEAN CORPUSCULAR HGB CONC 32.2 g/dL CAL (32.0-36.0); NEUT# 7.04 thou/uL (1.82-7.42); NEUT% 65.6 % (42-76); RED BLOOD COUNT 4.22 mill/uL (4.70-6.10); RED CELL DISTRI WIDTH 13.2 % (11.5-15.5)
[2023-10-18 16:50] LABS: ALKALINE PHOSPHATASE 111 u/l (38-126); CHLORIDE 108 mmol/l (95-108); CREATININE 1.9 mg/dL (0.7-1.3); ESTIMATED GFR 41 ML/MIN (>=90 (CALC)); LIPASE 24 u/l (23-300); POTASSIUM 3.6 mmol/l (3.5-5.1); SODIUM 140 mmol/l (137-146); TOTAL PROTEIN 7.6 g/dL (6.3-8.2)
--- NOTE | 2023-10-18 16:54 | NUR ---
PT RESTING, REQUESTING DEMEROL, NO S/S OF DISTRESS.
[2023-10-18 16:56] LABS: ANION GAP 13 (6-22 (CALC)); BILIRUBIN, TOTAL 0.5 mg/dL (0.2-1.3); BUN 35 mg/dL (9-20); BUN/CREATININE RATIO 18 (12-20 (CALC)); CARBON DIOXIDE 23 mmol/l (22-30); SGOT/AST 27 u/l (17-59)
[2023-10-18] MEDS ORDERED: MEPERIDINE HCL 50 MG/ML IV ONE (18:15)
--- NOTE | 2023-10-18 18:32 | NUR ---
PATIENT TO CT.
--- NOTE | 2023-10-18 18:56 | NUR ---
PATIENT BACK TO ROOM FROM CT.
[2023-10-18] MEDS ORDERED: LACTATED RINGER'S 1,000 ML IV ONE (19:05)
[2023-10-18] MEDS ORDERED: ONDANSETRON 4 MG/TAB ODT ONE (19:45)
--- NOTE | 2023-10-18 20:00 | NUR ---
PT RESTING IN BED, WATCHING TV
[2023-10-18 20:28] LABS: URINE BILIRUBIN - DIPSTICK Negative (NEGATIVE); URINE BLOOD DIPSTICK Negative (NEGATIVE); URINE GLUCOSE - DIPSTICK Negative (NEGATIVE); URINE KETONE 15 mg/dL (NEGATIVE); URINE LEUK ESTERASE Negative (NEGATIVE); URINE NITRITE - DIPSTICK Negative (Negative); URINE PH 5.5 (4.5-8.0); URINE PROTEIN - DIPSTICK Negative (NEG-TRACE); URINE UROBILINOGEN - DIPSTICK 0.2 E.U./dL (0.2)
[2023-10-18 20:29] LABS: URINE COLOR Yellow
[2023-10-18] MEDS ORDERED: DICYCLOMINE HCL 20 MG/2 ML VIAL IM ONE (20:35)
[2023-10-18] MEDS ORDERED: PROMETHAZINE HCL 25 MG/ML AMP IV ONE (20:35)
[2023-10-18] MEDS ORDERED: MAGNESIUM HYDROXIDE 30 ML UDC PO PRN (20:40)
[2023-10-18] MEDS ORDERED: SODIUM CHLORIDE 0.9% 1,000 ML IV PRN (20:40)
[2023-10-18] MEDS ORDERED: ACETAMINOPHEN 325 MG/TAB PO PRN (20:40)
[2023-10-18] MEDS ORDERED: MEPERIDINE HCL 50 MG/ML IV PRN (20:45)
[2023-10-18] MEDS ORDERED: CYCLOBENZAPRINE HCL 5 MG TAB PO PRN (20:50)
[2023-10-18] MEDS ORDERED: PROMETHAZINE HCL 25 MG/ML AMP IV PRN (20:55)
[2023-10-18] MEDS ORDERED: hydrALAZINE HCL 20 MG/ML VIAL(1 ML) IV PRN (20:55)
--- NOTE | 2023-10-18 20:57 | NUR ---
PT RESTING IN BED WATCHING TV
[2023-10-18] MEDS ORDERED: INSULIN LISPRO 100 UNITS/ML ML SC SCH (21:00)
[2023-10-18] MEDS ORDERED: ATORVASTATIN CALCIUM 40 MG/TAB PO SCH (21:00)
[2023-10-18] MEDS ORDERED: METOPROLOL TARTRATE 25 MG/TAB PO SCH (21:00)
[2023-10-18] MEDS ORDERED: INSULIN DETEMIR 100 UNITS/ML SC SCH (21:00)
--- NOTE | 2023-10-18 22:45 | NUR ---
REPORT CALLED TO MARK HULL ADMITTED TO [id number]
[2023-10-18] MEDS ORDERED: Pantoprazole Sodium 40 MG VIAL (Protonix) IV SCH (23:00)
[2023-10-19] VITALS (11 sets, daily range): BP systolic 143–183; BP diastolic 58–90
--- NOTE | 2023-10-19 00:49 | NUR ---
PATIENT ADMITTED TO [facility] VIA WC. ALERT AND ABLE TO MAKE NEEDS KNOWN. PATIENT HAS STEADY GATE. ASSESSMENT COMPLETE. NO DISTRESS NOTED. COMPLAINTS OF PAIN TO ABDOMEN AND HEAD. WILL CHECK EMAR. PATIENT ORIENTED TO ROOM, CALL HUBER AND SURROUNDINGS. BED IN LOW POSITION. CALL HUBER IN REACH.
--- NOTE | 2023-10-19 04:20 | NUR ---
PATIENT REMAINS RESTING IN BED. DENIES NEEDING ANYTHING AT THIS TIME. NO SIGNS OF DISTRESS. NO COMPLAINTS OF PAIN AT THIS TIME. BED REMAINS IN LOW POSITION. CALL HUBER IN REACH.
[2023-10-19 05:29] LABS: BASO% 0.4 % (0-3); EOS% 7.2 % (0-8); HEMATOCRIT 32.8 % (39.0-50.0); HEMOGLOBIN 10.5 g/dl (14.0-18.0); IMMATURE GRANULOCYTES 0.7 % (0.0-5.0); LYMPH% 26.9 % (15-41); MEAN CELL VOLUME 84.3 fL CALC (80.0-100.0); MONO% 9.6 % (2-13); NEUT# 3.85 thou/uL (1.82-7.42); NEUT% 55.2 % (42-76); RED BLOOD COUNT 3.89 mill/uL (4.70-6.10); RED CELL DISTRI WIDTH 13.2 % (11.5-15.5)
[2023-10-19 05:50] LABS: ALBUMIN 3.5 g/dL (3.2-5.0); BILIRUBIN, TOTAL 0.5 mg/dL (0.2-1.3); CHOLESTEROL HDL RATIO 4.5 (<4.4 (CALC)); CREATININE 1.4 mg/dL (0.7-1.3); TOTAL PROTEIN 6.5 g/dL (6.3-8.2)
[2023-10-19 06:29] LABS: POTASSIUM 4.6 mmol/l (3.5-5.1)
--- NOTE | 2023-10-19 07:16 | NUR ---
PATIENT LAYING IN BED WATCHING TV. PATIENT IS A&OX4 AND ABLE TO MAKE NEEDS KNOWN. PATIENT ABDOMEN SOFT AND NONTENDER, RESPIRATIONS EVEN AND UNLABORED, PEDAL PULSES PRESENT. PATIENT DENIES ANY NEEDS AT THIS TIME. WILL CONTINUE TO MONITOR.
[2023-10-19] MEDS ORDERED: PANCREATIC ENZYMES 12 000 UNITS LIPASE PO SCH (07:30)
[2023-10-19] MEDS ORDERED: amLODIPine BESYLATE 5 MG/TAB PO SCH (09:00)
[2023-10-19] MEDS ORDERED: CLOPIDOGREL BISULFATE 75 MG/TAB TAB PO SCH (09:00)
[2023-10-19] MEDS ORDERED: AZITHROMYCIN 500 MG in SODIUM CHLORIDE 0.9% 250 ML IV SCH (09:00)
[2023-10-19] MEDS ORDERED: INSULIN DETEMIR 100 UNITS/ML SC SCH (09:00)
--- NOTE | 2023-10-19 11:57 | NUR ---
PATIENT SITTING UP IN BED. PATIENT LUNCH HAS ARRIVED. PATIENT DENIES ANY NEEDS AT THIS TIME. WILL CONTINUE TO MONITOR.
--- NOTE | 2023-10-19 15:50 | NUR ---
PATIENT RESTING IN WATCHING TV. PATIENT DENIES ANY NEEDS AT THIS TIME. WILL CONTINUE TO MONITOR.
[2023-10-19] MEDS ORDERED: ENOXAPARIN SODIUM 40 MG/0.4 ML SYR SC SCH (21:00)
[2023-10-20] VITALS (11 sets, daily range): BP systolic 125–171; BP diastolic 55–84
[2023-10-20 05:53] LABS: BASO% 0.4 % (0-3); EOS% 5.9 % (0-8); HEMATOCRIT 32.3 % (39.0-50.0); HEMOGLOBIN 10.5 g/dl (14.0-18.0); IMMATURE GRANULOCYTES 0.2 % (0.0-5.0); LYMPH% 15.7 % (15-41); MEAN CELL VOLUME 83.9 fL CALC (80.0-100.0); MEAN CORPUSCULAR HGB 27.3 pG CALC (26.0-32.0); MEAN CORPUSCULAR HGB CONC 32.5 g/dL CAL (32.0-36.0); NEUT# 5.82 thou/uL (1.82-7.42); NEUT% 69.8 % (42-76); RED BLOOD COUNT 3.85 mill/uL (4.70-6.10); RED CELL DISTRI WIDTH 12.7 % (11.5-15.5)
[2023-10-20 06:05] LABS: ALBUMIN 3.6 g/dL (3.2-5.0); BILIRUBIN, TOTAL 0.3 mg/dL (0.2-1.3); CREATININE 1.2 mg/dL (0.7-1.3); MAGNESIUM 1.8 mg/dL (1.6-2.3); POTASSIUM 3.7 mmol/l (3.5-5.1); TOTAL PROTEIN 6.5 g/dL (6.3-8.2)
--- NOTE | 2023-10-20 07:55 | NUR ---
PATIENT LAYING IN BED WATCHING TV. PATIENT A&OX4 AND ABLE TO MAKE NEEDS KNOWN. PATIENT ABDOMEN SOFT AND NONTENDER, RESPIRATIONS EVEN AND UNLABORED, PEDAL PULSES PRESENT. PATIENT DENIES ANY NEEDS AT THIS TIME. WILL CONTINUE TO MONITOR.
[2023-10-20] MEDS ORDERED: ISOSORBIDE MONONITRATE 60 MG/TAB PO SCH (09:00)
--- NOTE | 2023-10-20 12:00 | NUR ---
PATIENT LAYING IN BED HAVING LUNCH. DENIES ANY NEEDS AT THIS TIME. WILL CONTINUE TO MONITOR.
--- NOTE | 2023-10-20 15:58 | NUR ---
PATIENT LAYING IN BED WATCHING TV. PATIENT DENIES ANY NEEDS AT THIS TIME. WILL CONTINUE TO MONITOR.
[2023-10-21] VITALS: BP 125/56
[2023-10-21 04:00] VITALS: BP 142/64
[2023-10-21 04:40] VITALS: BP 142/64
[2023-10-21 06:04] LABS: BASO% 0.5 % (0-3); EOS% 5.3 % (0-8); HEMATOCRIT 35.9 % (39.0-50.0); HEMOGLOBIN 11.7 g/dl (14.0-18.0); IMMATURE GRANULOCYTES 0.3 % (0.0-5.0); LYMPH% 17.3 % (15-41); MEAN CELL VOLUME 83.7 fL CALC (80.0-100.0); MEAN CORPUSCULAR HGB 27.3 pG CALC (26.0-32.0); MEAN CORPUSCULAR HGB CONC 32.6 g/dL CAL (32.0-36.0); NEUT# 4.56 thou/uL (1.82-7.42); NEUT% 68.6 % (42-76); RED BLOOD COUNT 4.29 mill/uL (4.70-6.10); RED CELL DISTRI WIDTH 12.7 % (11.5-15.5)
[2023-10-21 06:26] LABS: ALBUMIN 3.5 g/dL (3.2-5.0); BILIRUBIN, TOTAL 0.2 mg/dL (0.2-1.3); CREATININE 1.1 mg/dL (0.7-1.3); MAGNESIUM 1.8 mg/dL (1.6-2.3); POTASSIUM 3.2 mmol/l (3.5-5.1); TOTAL PROTEIN 6.4 g/dL (6.3-8.2)
[2023-10-21 06:30] VITALS: BP 143/74
--- NOTE | 2023-10-21 08:10 | NUR ---
PT SITTING UP IN THE BED WATCHING TV, PT A&OX 3, LUNG SOUNDS CLEAR, ABD DISTENDED AND FIRM, ACTIVE BOWEL SOUNDS, STRONG PEDAL AND RADIAL PULSES, R CHEST WALL PORT ACCESS WITH FLUIDS INFUSING AT PRESCRIBED RATE, SAFETY MEASURES REINFORCED AND CALL HUBER WITHIN REACH
[2023-10-21] MEDS ORDERED: AZITHROMYCIN 250 MG/TAB PO SCH (09:00)
[2023-10-21 09:57] LABS: CREATININE 1.1 mg/dL (0.7-1.3); POTASSIUM 3.5 mmol/l (3.5-5.1)
--- NOTE | 2023-10-21 10:00 | NUR ---
PT RESTING WITH EYES CLOSED AROUSES EASILY TO VERBAL STIMULI, DENIES ANY NEEDS AT THIS TIME, CALL HUBER WITHIN REACH
[2023-10-21] MEDS ORDERED: OMNICEF300 MG PO (10:19)
[2023-10-21 11:30] VITALS: BP 147/81
--- NOTE | 2023-10-21 12:00 | NUR ---
PT EATING LUNCH, DENIES ANY NEEDS AT THIS TIME.
[2023-10-21] MEDS ORDERED: LACTULOSE 20 GM/30 ML UDC PO SCH (13:00)
[2023-10-21] MEDS ORDERED: HEPARIN SODIUM FLUSH (PORCINE) 100 UNIT/ML 5 ML SYR IV PRN (15:05)
[2023-10-21] MEDS ORDERED: SODIUM CHLORIDE 0.9% 10 ML SYR IV PRN (15:05)
--- NOTE | 2023-10-21 15:20 | NUR ---
Discharge instructions given. Patient verbalizes understanding of same. Discharged in stable condition via Wheelchair to Home with family. All belongings sent with pt.
[2023-10-21] MEDS ORDERED: SODIUM CHLORIDE 0.9% 10 ML SYR IV SCH (22:00)
== END 2023-10-21 15:20 | disposition home or self-care (01) ==
LOC: ED 15:28 → ED-I 16:13 → ED 20:38 → MS2 20:39
PROVIDERS: Family Medicine; ADMIT Student in an Organized Health Care Education/Training Program; ATTEND Student in an Organized Health Care Education/Training Program
DX: N17.9 Acute kidney failure, unspecified (principal); R07.9 Chest pain, unspecified; R19.7 Diarrhea, unspecified; R11.2 Nausea with vomiting, unspecified; I13.0 Hypertensive heart and chronic kidney disease with heart failure and stage 1 through stage 4 chronic kidney disease, or unspecified chronic kidney disease; E86.0 Dehydration; E10.22 Type 1 diabetes mellitus with diabetic chronic kidney disease; N18.30 Chronic kidney disease, stage 3 unspecified; I50.9 Heart failure, unspecified; I25.10 Atherosclerotic heart disease of native coronary artery without angina pectoris; K21.9 Gastro-esophageal reflux disease without esophagitis; G89.4 Chronic pain syndrome; F11.20 Opioid dependence, uncomplicated; K86.1 Other chronic pancreatitis; E10.43 Type 1 diabetes mellitus with diabetic autonomic (poly)neuropathy; K31.84 Gastroparesis; E10.65 Type 1 diabetes mellitus with hyperglycemia; Z79.4 Long term (current) use of insulin; Z95.1 Presence of aortocoronary bypass graft; Z86.73 Personal history of transient ischemic attack (TIA), and cerebral infarction without residual deficits; Z95.5 Presence of coronary angioplasty implant and graft; E87.3 Alkalosis
CPT/HCPCS: G0378; J1650; Q9967; S0164

== ENCOUNTER 2023-11-21 15:00 | Emergency (ER) | payer OTHER ==
[~2023-11-21] VITALS: Ht 175.3 cm; Wt 101.0 kg
[2023-11-21] VITALS (8 sets, daily range): BP systolic 141–155; BP diastolic 79–85
[~2023-11-21 15:00] MED LIST changes: +METOCLOPRAMIDE H5 M1 PO; +OMNICEF300 MG PO
[2023-11-21 16:16] LABS: BASO% 0.8 % (0-3); EOS% 8.7 % (0-8); HEMATOCRIT 33.9 % (39.0-50.0); IMMATURE GRANULOCYTES 0.2 % (0.0-5.0); MEAN CELL VOLUME 81.7 fL CALC (80.0-100.0); MEAN CORPUSCULAR HGB 26.5 pG CALC (26.0-32.0); MEAN CORPUSCULAR HGB CONC 32.4 g/dL CAL (32.0-36.0); MONO% 10.3 % (2-13); NEUT# 3.28 thou/uL (1.82-7.42); RED BLOOD COUNT 4.15 mill/uL (4.70-6.10)
[2023-11-21 16:28] LABS: ALBUMIN 4.3 g/dL (3.2-5.0); ALKALINE PHOSPHATASE 107 u/l (38-126); ANION GAP 12 (6-22 (CALC)); BILIRUBIN, TOTAL 0.4 mg/dL (0.2-1.3); BUN/CREATININE RATIO 27 (12-20 (CALC)); CARBON DIOXIDE 24 mmol/l (22-30); CHLORIDE 106 mmol/l (95-108); CREATININE 1.7 mg/dL (0.7-1.3); ESTIMATED GFR 47 ML/MIN (>=90 (CALC)); SGOT/AST 21 u/l (17-59); SODIUM 138 mmol/l (137-146); TOTAL PROTEIN 7.4 g/dL (6.3-8.2)
[2023-11-21 16:30] LABS: BUN 46 mg/dL (9-20)
[2023-11-21] MEDS ORDERED: LASIX20 MG PO (17:12)
[2023-11-21] MEDS ORDERED: FUROSEMIDE 40 MG/TAB PO ONE (17:15)
== END 2023-11-21 17:48 | disposition home or self-care (01) ==
LOC: ED 15:00
PROVIDERS: Family Medicine
DX: R60.0 Localized edema (principal); I12.9 Hypertensive chronic kidney disease with stage 1 through stage 4 chronic kidney disease, or unspecified chronic kidney disease; E11.22 Type 2 diabetes mellitus with diabetic chronic kidney disease; N18.30 Chronic kidney disease, stage 3 unspecified; E11.43 Type 2 diabetes mellitus with diabetic autonomic (poly)neuropathy; K31.84 Gastroparesis; K86.1 Other chronic pancreatitis; G89.4 Chronic pain syndrome; F11.20 Opioid dependence, uncomplicated; Z90.411 Acquired partial absence of pancreas; Z90.49 Acquired absence of other specified parts of digestive tract; Z79.4 Long term (current) use of insulin; Z95.5 Presence of coronary angioplasty implant and graft; Z95.1 Presence of aortocoronary bypass graft; Z20.822 Contact with and (suspected) exposure to COVID-19

== ENCOUNTER 2023-11-23 00:29 | Observation (INO) | payer OTHER ==
[2023-11-23] VITALS (14 sets, daily range): BP systolic 113–205; BP diastolic 61–111
[~2023-11-23] VITALS: Ht 175.3 cm; Wt 227.0 kg
[~2023-11-23 00:29] MED LIST changes: +LASIX20 MG PO
--- NOTE | 2023-11-23 00:35 | NUR ---
PATIENT TO ROOM 6 FOR BEDSIDE TRIAGE.
[2023-11-23] MEDS ORDERED: FUROSEMIDE 40 MG/4 ML SDV IV ONE (01:00)
[2023-11-23] MEDS ORDERED: MEPERIDINE HCL 50 MG/ML IV ONE (01:05)
[2023-11-23] MEDS ORDERED: ONDANSETRON HCl 4 MG/2 ML SDV IV ONE (01:10)
[2023-11-23 01:25] LABS: BASO% 0.5 % (0-3); EOS% 4.2 % (0-8); HEMATOCRIT 34.3 % (39.0-50.0); HEMOGLOBIN 11.2 g/dl (14.0-18.0); IMMATURE GRANULOCYTES 0.4 % (0.0-5.0); MEAN CELL VOLUME 82.3 fL CALC (80.0-100.0); MEAN CORPUSCULAR HGB 26.9 pG CALC (26.0-32.0); MEAN CORPUSCULAR HGB CONC 32.7 g/dL CAL (32.0-36.0); MONO% 9.3 % (2-13); NEUT# 5.03 thou/uL (1.82-7.42); NEUT% 62.6 % (42-76); RED BLOOD COUNT 4.17 mill/uL (4.70-6.10); RED CELL DISTRI WIDTH 13.2 % (11.5-15.5)
--- NOTE | 2023-11-23 01:35 | NUR ---
PATIENT RESTING IN BED.
[2023-11-23 01:41] LABS: ALBUMIN 4.5 g/dL (3.2-5.0); ALKALINE PHOSPHATASE 107 u/l (38-126); ANION GAP 14 (6-22 (CALC)); BILIRUBIN, TOTAL 0.3 mg/dL (0.2-1.3); BUN 52 mg/dL (9-20); BUN/CREATININE RATIO 26 (12-20 (CALC)); CARBON DIOXIDE 27 mmol/l (22-30); CHLORIDE 103 mmol/l (95-108); ESTIMATED GFR 39 ML/MIN (>=90 (CALC)); LIPASE 33 u/l (23-300); POTASSIUM 4.6 mmol/l (3.5-5.1); SGOT/AST 27 u/l (17-59); SODIUM 140 mmol/l (137-146); TOTAL PROTEIN 7.8 g/dL (6.3-8.2)
--- NOTE | 2023-11-23 02:25 | NUR ---
PT NOTED WITH 600 ML OF YELLOW URINE AT THIS TIME, PT UPDATED ON CONTINUOUS PLAN OF CARE WITH NO FURTHER QUESTIONS OR CONCERNS, PT VOICES MODERATE RELIEF OF PAIN AT THIS TIME, AWAITING ALL FURTHER RESULTS.
[2023-11-23 02:38] LABS: URINE BILIRUBIN - DIPSTICK Negative (NEGATIVE); URINE BLOOD DIPSTICK Negative (NEGATIVE); URINE CLARITY Clear; URINE GLUCOSE - DIPSTICK 500 mg/dL (NEGATIVE); URINE KETONE Negative (NEGATIVE); URINE LEUK ESTERASE Negative (Negative); URINE NITRITE - DIPSTICK Negative (Negative); URINE PROTEIN - DIPSTICK Negative (NEG-TRACE); URINE SPECIFIC GRAVITY 1.015; URINE UROBILINOGEN - DIPSTICK 0.2 E.U./dL (0.2)
[2023-11-23 02:40] LABS: URINE COLOR Yellow
[2023-11-23] MEDS ORDERED: ONDANSETRON 4 MG/TAB ODT SL PRN (03:00)
[2023-11-23] MEDS ORDERED: ACETAMINOPHEN 325 MG/TAB PO PRN (03:00)
[2023-11-23] MEDS ORDERED: MEPERIDINE HCL 50 MG/ML IV PRN (03:45)
--- NOTE | 2023-11-23 03:45 | NUR ---
REPORT CALLED TO A RENZO MCKEON.
--- NOTE | 2023-11-23 04:00 | NUR ---
PATIENT TO ICU ROOM 5, CARE HANDED OVER TO Ruma MULLER RN
--- NOTE | 2023-11-23 04:00 | NUR ---
PATIENT ARRIVED TO ICU ROOM 5 VIA WHEELCHAIR BROUGHT BY ER NURSE DILEPE. PATIENT ORIENTED TO THE ROOM, DISCUSSED PLAN OF CARE. VITAL SIGNS STABLE.
[2023-11-23] MEDS ORDERED: COZAAR25 MG PO (04:12)
--- NOTE | 2023-11-23 07:05 | NUR ---
PT LAYING IN BED RESTING WITH EYES CLOSED, AROUSES EASILY TO VERBAL STIMULI, PT A&O X3, PUPILS PERRL, HR NORMAL S1 S2, LUNGS SOUNDS CLEAR, STRONG RADIAL AND PEDAL PULSES, R CHEST WALL PORT, PREVIOUSLY ACCESSED SL, TRACE EDEMA IN BLE, SAFETY MEASURES REINFORCED, CALL HUBER WITHIN REACH
[2023-11-23] MEDS ORDERED: DEXTROSE 250 ML IV PRN (08:10)
[2023-11-23] MEDS ORDERED: INSULIN LISPRO 100 UNITS/ML ML SC SCH (08:30)
--- NOTE | 2023-11-23 08:40 | NUR ---
DR STONE AT BEDSIDE DISCUSSING PLAN OF CARE
[2023-11-23] MEDS ORDERED: CLOPIDOGREL BISULFATE 75 MG/TAB TAB PO SCH (09:00)
[2023-11-23] MEDS ORDERED: ASPIRIN EC 81 MG/TAB PO SCH (09:00)
[2023-11-23] MEDS ORDERED: METOPROLOL SUCCINATE 50 MG/TAB PO SCH (10:30)
[2023-11-23] MEDS ORDERED: LOSARTAN Potassium 50 MG/TAB PO SCH (10:30)
--- NOTE | 2023-11-23 11:00 | NUR ---
PT RESTING WITH EYES CLOSED, AROUSES EASILY TO VERBALIZE STIMULI, PT DENIES ANY NEEDS AT THIS TIME, CALL HUBER WITHIN REACH
[2023-11-23] MEDS ORDERED: CREON12000 UNT PO (11:54)
[2023-11-23] MEDS ORDERED: REGLAN10 MG PO (11:57)
[2023-11-23] MEDS ORDERED: APRESOLINE50 MG PO (11:59)
--- NOTE | 2023-11-23 12:00 | NUR ---
PT SITTING UP IN THE BED EATING LUNCH, DENIES ANY NEEDS AT THIS TIME, CALL HUBER WITHIN REACH
--- NOTE | 2023-11-23 15:29 | NUR ---
PT RESTING WITH EYES CLOSED, NO SIGNS OF DISTRESS, CALL HUBER WITHIN REACH
--- NOTE | 2023-11-23 17:15 | NUR ---
PT SITTING UP IN THE BED EATING DINNER AND WATCHING TV, PT VERBALIZED NO NEEDS AT THIS TIME, CALL HUBER WITHIN REACH
--- NOTE | 2023-11-23 19:30 | NUR ---
awake. nad. shore man shows sinus rhythm. blood drawn per rt chest port & sent to lab. po fluids taken well. voids per urinal. fall precautions cont.
--- NOTE | 2023-11-24 00:01 | NUR ---
sleeper cutter shows sinus rhythm.
--- NOTE | 2023-11-24 04:00 | NUR ---
awake. no c/o voiced. bead preparer shows sinus rhythm.
--- NOTE | 2023-11-24 05:20 | NUR ---
blood drawn & sent to lab.
[2023-11-24 05:45] LABS: BASO% 0.6 % (0-3); EOS% 5.7 % (0-8); HEMATOCRIT 36.8 % (39.0-50.0); IMMATURE GRANULOCYTES 0.2 % (0.0-5.0); LYMPH% 14.7 % (15-41); MEAN CELL VOLUME 82.5 fL CALC (80.0-100.0); MEAN CORPUSCULAR HGB 26.9 pG CALC (26.0-32.0); MEAN CORPUSCULAR HGB CONC 32.6 g/dL CAL (32.0-36.0); MONO% 7.5 % (2-13); NEUT# 6.81 thou/uL (1.82-7.42); NEUT% 71.3 % (42-76); RED BLOOD COUNT 4.46 mill/uL (4.70-6.10); RED CELL DISTRI WIDTH 13.2 % (11.5-15.5)
[2023-11-24 06:10] LABS: ALBUMIN 4.2 g/dL (3.2-5.0); BILIRUBIN, TOTAL 0.4 mg/dL (0.2-1.3); CREATININE 1.7 mg/dL (0.7-1.3); MAGNESIUM 2.1 mg/dL (1.6-2.3); POTASSIUM 4.2 mmol/l (3.5-5.1); TOTAL PROTEIN 7.2 g/dL (6.3-8.2)
--- NOTE | 2023-11-24 07:19 | NUR ---
BEDSIDE REPORT RECEIVED FROM OFF GOING NURSE. PATIENT AWAKE IN BED AT THIS TIME. PATIENT C/O SOB "EVER SINCE MY PORT WAS FLUSHED". PATIENT ALSO C/O FEELING "HOT". PATIENT CURRENTLY REQUESTING BENADRYL AND STATING "I CAN/T GO HOME LIKE THIS". PATIENT AFEBRILE AT THIS TIME. URINE YELLOW AND CLEAR. BOWEL SOUNDS PRESENT. DENIES PAIN. PATIENT ASSURED THAT MD WILL BE MADE AWARE OF HIS CONCERNS. RESPIRATIONS 19 AT THIS TIME. CALL LIGHT WITHIN REACH.
[2023-11-24 08:37] VITALS: BP 145/71
[2023-11-24] MEDS ORDERED: NEURONTIN100 MG PO (09:12)
[2023-11-24] MEDS ORDERED: HYZAAR1 TA1 PO (09:16)
[2023-11-24] MEDS ORDERED: LOSARTAN POTASS50 MG PO (09:17)
[2023-11-24] MEDS ORDERED: SODIUM CHLORIDE 0.9% 10 ML SYR IV PRN (10:50)
[2023-11-24] MEDS ORDERED: SODIUM CHLORIDE 0.9% 10 ML SYR IV SCH (10:50)
[2023-11-24] MEDS ORDERED: HEPARIN SODIUM FLUSH (PORCINE) 100 UNIT/ML 5 ML SYR IV PRN (10:50)
--- NOTE | 2023-11-24 10:55 | NUR ---
DISCHARGE INSTRUCTIONS GIVEN TO PATIENT. PATIENT ALERT AND ORIENTED X4 AND VERBALIZES UNDERSTANDING OF INSTRUCTIONS. DENIES PAIN OR DISCOMFORT AT THIS TIME. REMOVED FROM MONITOR. RIGHT CHEST PORT DEACCESSED. NO SIGNS OF DISTRESS NOTED. ALL BELONGING GATHERED AND TRANSPORTED VIA WC WITH PATIENT.
== END 2023-11-24 10:55 | disposition home or self-care (01) ==
LOC: ED 00:29 → ED-I 01:04 → ED 01:04 → ED-I 02:39 → ED 02:48 → ICU 02:49
PROVIDERS: Emergency Medicine; Nurse Practitioner Family; ADMIT Internal Medicine; ATTEND Internal Medicine
DX: R07.89 Other chest pain (principal); N17.9 Acute kidney failure, unspecified; I12.9 Hypertensive chronic kidney disease with stage 1 through stage 4 chronic kidney disease, or unspecified chronic kidney disease; E11.22 Type 2 diabetes mellitus with diabetic chronic kidney disease; N18.30 Chronic kidney disease, stage 3 unspecified; E11.43 Type 2 diabetes mellitus with diabetic autonomic (poly)neuropathy; K31.84 Gastroparesis; E11.69 Type 2 diabetes mellitus with other specified complication; E78.5 Hyperlipidemia, unspecified; I25.10 Atherosclerotic heart disease of native coronary artery without angina pectoris; F11.20 Opioid dependence, uncomplicated; K86.1 Other chronic pancreatitis; G89.4 Chronic pain syndrome; Z95.1 Presence of aortocoronary bypass graft; Z95.5 Presence of coronary angioplasty implant and graft; Z79.4 Long term (current) use of insulin; Z90.411 Acquired partial absence of pancreas

== ENCOUNTER 2023-12-02 03:12 | Emergency (ER) | payer OTHER ==
[~2023-12-02] VITALS: Ht 175.3 cm; Wt 99.0 kg
[2023-12-02] VITALS (17 sets, daily range): BP systolic 122–186; BP diastolic 66–105
[~2023-12-02 03:12] MED LIST changes: +COZAAR25 MG PO; +HYZAAR1 TA1 PO; +LOSARTAN POTASS50 MG PO; +NEURONTIN100 MG PO
[2023-12-02] MEDS ORDERED: cloNIDine HCL 0.1 MG/TAB PO ONE (03:40)
[2023-12-02] MEDS ORDERED: NITROGLYCERIN 0.4 MG/TAB SL ONE (03:40)
[2023-12-02] MEDS ORDERED: LABETALOL HCL 20 MG/ 4 ML CARTRG IV ONE (03:40)
[2023-12-02] MEDS ORDERED: ASPIRIN 81 MG/TAB PO ONE (03:40)
[2023-12-02] MEDS ORDERED: SODIUM CHLORIDE 0.9% 1,000 ML IV ONE (03:45)
[2023-12-02 04:10] LABS: BASO% 0.6 % (0-3); EOS% 7.6 % (0-8); HEMATOCRIT 34.1 % (39.0-50.0); HEMOGLOBIN 11.1 g/dl (14.0-18.0); IMMATURE GRANULOCYTES 1.1 % (0.0-5.0); MEAN CELL VOLUME 82.2 fL CALC (80.0-100.0); MEAN CORPUSCULAR HGB 26.7 pG CALC (26.0-32.0); MEAN CORPUSCULAR HGB CONC 32.6 g/dL CAL (32.0-36.0); MONO% 9.1 % (2-13); NEUT# 3.82 thou/uL (1.82-7.42); NEUT% 57.6 % (42-76); RED BLOOD COUNT 4.15 mill/uL (4.70-6.10)
[2023-12-02] MEDS ORDERED: traMADol HCL 50 MG/TAB PO ONE (04:15)
[2023-12-02] MEDS ORDERED: PREGABALIN 50 MG/CAP PO ONE (04:15)
[2023-12-02 04:28] LABS: ALBUMIN 4.1 g/dL (3.2-5.0); ALKALINE PHOSPHATASE 109 u/l (38-126); ANION GAP 10 (6-22 (CALC)); BILIRUBIN, TOTAL 0.3 mg/dL (0.2-1.3); BUN 32 mg/dL (9-20); BUN/CREATININE RATIO 18 (12-20 (CALC)); CARBON DIOXIDE 29 mmol/l (22-30); CHLORIDE 104 mmol/l (95-108); CREATININE 1.8 mg/dL (0.7-1.3); ESTIMATED GFR 44 ML/MIN (>=90 (CALC)); POTASSIUM 4.2 mmol/l (3.5-5.1); SGOT/AST 24 u/l (17-59); SODIUM 139 mmol/l (137-146); TOTAL PROTEIN 7.2 g/dL (6.3-8.2)
[2023-12-02 04:53] LABS: ACT PARTIAL THROMBO TIME 26.7 SECONDS (20.0-32.5)
[2023-12-02 04:57] LABS: PROTHROMBIN TIME 9.5 SECONDS (9.0-12.5)
[2023-12-02] MEDS ORDERED: HEPARIN SODIUM FLUSH (PORCINE) 100 UNIT/ML 5 ML SYR IV ONE (07:00)
== END 2023-12-02 07:25 | disposition home or self-care (01) ==
LOC: ED 03:12
PROVIDERS: Family Medicine
DX: I13.0 Hypertensive heart and chronic kidney disease with heart failure and stage 1 through stage 4 chronic kidney disease, or unspecified chronic kidney disease (principal); E10.22 Type 1 diabetes mellitus with diabetic chronic kidney disease; N18.30 Chronic kidney disease, stage 3 unspecified; I50.9 Heart failure, unspecified; I25.10 Atherosclerotic heart disease of native coronary artery without angina pectoris; E78.5 Hyperlipidemia, unspecified; E10.43 Type 1 diabetes mellitus with diabetic autonomic (poly)neuropathy; K31.84 Gastroparesis; I25.2 Old myocardial infarction; Z87.11 Personal history of peptic ulcer disease; Z79.4 Long term (current) use of insulin